=== PATIENT | female | born 1970 | race Caucasian/White ===

== ENCOUNTER 2017-09-04 19:58 | Emergency (ER) | END 2017-09-05 02:00 | disposition home or self-care (01) ==

== ENCOUNTER 2017-09-05 12:09 | Day surgery (SDC) | END 2017-09-05 18:06 | disposition home or self-care (01) ==

== ENCOUNTER 2017-10-11 13:36 | Day surgery (SDC) | END 2017-10-11 19:30 | disposition home or self-care (01) ==

== ENCOUNTER 2018-01-07 13:41 | Emergency (ER) | END 2018-01-07 21:40 | disposition home or self-care (01) ==

== ENCOUNTER 2018-03-15 10:09 | Inpatient (IN) | payer BC ==
[~2018-03-15] VITALS: Ht 152.4 cm; Wt 70.0 kg
[~2018-03-15 10:09] MED LIST: ADAL40PE SQ; HYDR-3980 PO; LEVO750T8 PO; LISI10TA2 PO; MESA800T2 PO; ONDA8TAB14 PO; PANT40TA4 PO; PRED20TA PO; PRED5TAB PO
[2018-03-15 10:10] VITALS: Ht 152.4 cm; Wt 70.0 kg
--- NOTE | 2018-03-15 10:38 | ERD ---
ER Documentation Chief Complaint Chief Complaint CONSTIPATION TODAY. HX HEMORRHOIDS TODAY. ROS All systems reviewed and are negative except as per history of present illness. Medications Home Meds Active Scripts Hydrocodone/Acetaminophen ([place] 10-325 Tablet) 1 Each Tablet, 1 TAB PO Q6H PRN for PAIN, #20 TAB Prov:NUBIA ZIMMER. DO 01/07/18 Levofloxacin* (Levofloxacin*) 750 Mg Tablet, 750 MG PO DAILY, #7 TAB Prov:NUBIA ZIMMER A. DO 01/07/18 Prednisone* (Prednisone*) 20 Mg Tab, 60 MG PO DAILY for 5 Days, TAB Prov:MATTHEW ZIMMERS A. DO 01/07/18 Mesalamine* (Asacol HD) 800 Mg Tablet.dr, 1800 MG PO TID, #60 TAB Prov:PAMNUBIA PITT DO 01/07/18 Ondansetron (Ondansetron Odt) 8 Mg Tab.rapdis, 8 MG PO Q6H PRN for NAUSEA AND/OR VOMITING, #10 TAB Prov:MATTHEW ZIMMERS A. DO 01/07/18 Reported Medications Prednisone* (Prednisone*) 5 Mg Tab, PO DAILY, TAB PER PT ALTERNATE PREDNISONE FOR 14 DAYS 10/11/17 Adalimumab (Humira) 40 Mg/0.8 Ml Pen.ij.kit, 40 MG SQ TWO WEEKS 10/11/17 Lisinopril* (Lisinopril*) 10 Mg Tablet, 10 MG PO DAILY, #30 TAB 09/05/17 Pantoprazole* (Pantoprazole*) 40 Mg Tablet.dr, 40 MG PO AC BREAKFAST, TAB 09/05/17 Allergies Allergies: Coded Allergies: No Known Allergy (Unverified , 09/05/17) PMhx/Soc History of Surgery: Yes (HYSTERECTOMY, PERIANAL ABSESS SX) Anesthesia Reaction: No Hx Neurological Disorder: No Hx Respiratory Disorders: No Hx Cardiac Disorders: Yes (HTN ) Hx Psychiatric Problems: No Hx Miscellaneous Medical Probl: Yes (PERIANAL FISTUALS, COLITIS) Hx Alcohol Use: No Hx Substance Use: No Hx Tobacco Use: No Smoking Status: Never smoker Physical Exam Vitals Vital Signs Date Temp Pulse Resp B/P (MAP) Pulse Ox O2 O2 Flow FiO2 Time Delivery Rate 03/15/18 102.9 113 16 131/66 99 10:10 (87) Physical Exam Const: No acute distress Head: Atraumatic Eyes: Normal Conjunctiva ENT: Normal External Ears, Nose and Mouth. Neck: Full range of motion. No meningismus. Resp: Clear to auscultation bilaterally Cardio: Regular rate and rhythm, no murmurs Abd: Soft, non tender, non distended. Normal bowel sounds Skin: No petechiae or rashes Back: No midline or flank tenderness Ext: No cyanosis, or edema Neur: Awake and alert Psych: Normal Mood and Affect Departure Condition: Stable ANITRA PACHECO MD Mar 15, 2018 10:38
[2018-03-15] MEDS ORDERED: metroNIDAZOLE 500 MG/NS (PMX) 100 ML IVPB ONE (11:00)
[2018-03-15] MEDS ORDERED: LEVOFLOXACIN 750MG/D5W (PMX) 150 ML IVPB ONE (11:00)
[2018-03-15] MEDS ORDERED: SOD CHLORIDE 0.9% 1,000 ML IV ONE (11:00)
--- NOTE | 2018-03-15 11:16 | ERD ---
ER Documentation Chief Complaint Chief Complaint CONSTIPATION TODAY. HX HEMORRHOIDS TODAY. HPI 47-year-old woman with a history of ulcerative colitis and rectovaginal fistula presents with left lower quadrant abdominal pain discomfort times 2 days and fever times 1 day. She admits to having diarrhea today (not constipation) and b lood per rectum. She also complains of headache when attempting a bowel movement earlier. Patient denies chest pain or shortness of breath, no vomiting, no blurry vision, no slurred speech, no paresis in her upper or lower extremities. Patient states she feels weak all over. 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 Medications Home Meds Active Scripts Hydrocodone/Acetaminophen ([place] 10-325 Tablet) 1 Each Tablet, 1 TAB PO Q6H PRN for PAIN, #20 TAB Prov:NUBIA ZIMMER. DO 01/07/18 Levofloxacin* (Levofloxacin*) 750 Mg Tablet, 750 MG PO DAILY, #7 TAB Prov:NUBIA ZIMMER. DO 01/07/18 Prednisone* (Prednisone*) 20 Mg Tab, 60 MG PO DAILY for 5 Days, TAB Prov:NUBIA ZIMMER DO 01/07/18 Mesalamine* (Asacol HD) 800 Mg Tablet.dr, 1800 MG PO TID, #60 TAB Prov:NUBIA ZIMMER DO 01/07/18 Ondansetron (Ondansetron Odt) 8 Mg Tab.rapdis, 8 MG PO Q6H PRN for NAUSEA AND/OR VOMITING, #10 TAB Prov:NUBIA ZIMMER. DO 01/07/18 Reported Medications Prednisone* (Prednisone*) 5 Mg Tab, PO DAILY, TAB PER PT ALTERNATE PREDNISONE FOR 14 DAYS 10/11/17 Adalimumab (Humira) 40 Mg/0.8 Ml Pen.ij.kit, 40 MG SQ TWO WEEKS 10/11/17 Lisinopril* (Lisinopril*) 10 Mg Tablet, 10 MG PO DAILY, #30 TAB 09/05/17 Pantoprazole* (Pantoprazole*) 40 Mg Tablet.dr, 40 MG PO AC BREAKFAST, TAB 09/05/17 Allergies Allergies: Coded Allergies: No Known Allergy (Unverified , 09/05/17) PMhx/Soc Ulcerative colitis, hypertension, gastritis History of Surgery: Yes (HYSTERECTOMY, PERIANAL ABSESS SX) Anesthesia Reaction: No Hx Neurological Disorder: Yes (bells palsy (rt side of face)) Hx Respiratory Disorders: No Hx Cardiac Disorders: Yes (HTN ) Hx Psychiatric Problems: No Hx Miscellaneous Medical Probl: Yes (PERIANAL FISTUALS, COLITIS) Hx Alcohol Use: No Hx Substance Use: No Hx Tobacco Use: No Smoking Status: Never smoker FmHx Family History: No diabetes Physical Exam Vitals Vital Signs Date Temp Pulse Resp B/P (MAP) Pulse Ox O2 O2 Flow FiO2 Time Delivery Rate 03/15/18 101.4 11:33 03/15/18 102.9 113 16 131/66 99 10:10 (87) Physical Exam Const: No acute distress, moderate discomfort, febrile Head: Atraumatic Eyes: Normal Conjunctiva ENT: Normal External Ears, Nose and Mouth. Neck: Full range of motion. No meningismus. Resp: Clear to auscultation bilaterally Cardio: Tachycardic and regular, no murmurs Abd: Moderate tenderness over the left lower abdomen with voluntary guarding, no rigidity Skin: No petechiae or rashes Back: No midline or flank tenderness Ext: No cyanosis, or edema Neur: Awake and alert x3, paresis to the right side of the face consistent with her history, strength in the upper and lower extremities 5/5 bilaterally, speech normal, gait normal, pupils equal round reactive to light Psych: Normal Mood and Affect Result Diagram: 03/15/18 1100 03/15/18 1100 Results 24 hrs Laboratory Tests Test 03/15/18 11:00 03/15/18 11:04 White Blood Count 12.8 10^3/ul Red Blood Count 4.21 10^6/ul Hemoglobin 7.8 g/dl Hematocrit 28.2 % Mean Corpuscular Volume 67.0 fl Mean Corpuscular Hemoglobin 18.5 pg Mean Corpuscular Hemoglobin Concent 27.7 g/dl Red Cell Distribution Width 19.4 % Platelet Count 631 10^3/UL Mean Platelet Volume 7.9 fl Immature Granulocytes % 0.700 % Neutrophils % 79.9 % Lymphocytes % 10.0 % Monocytes % 8.9 % Eosinophils % 0.2 % Basophils % 0.3 % Nucleated Red Blood Cells % 0.3 /100WBC Immature Granulocytes # 0.090 10^3/ul Neutrophils # 10.2 10^3/ul Lymphocytes # 1.3 10^3/ul Monocytes # 1.1 10^3/ul Eosinophils # 0.0 10^3/ul Basophils # 0.0 10^3/ul Nucleated Red Blood Cells # 0.0 10^3/ul Prothrombin Time 14.1 Sec Prothrombin Time Ratio 1.1 INR International Normalized Ratio 1.08 Activated Partial Thromboplast Time 31.8 Sec Sodium Level 133 mmol/L Potassium Level 3.7 mmol/L Chloride Level 95 mmol/L Carbon Dioxide Level 27 mmol/L Anion Gap 11 Blood Urea Nitrogen 6 mg/dl Creatinine 0.76 mg/dl Est Glomerular Filtrat Rate mL/min > 60 mL/min Glucose Level 106 mg/dl Calcium Level 8.7 mg/dl Total Bilirubin 0.2 mg/dl Direct Bilirubin 0.00 mg/dl Indirect Bilirubin 0.2 mg/dl Aspartate Amino Transf (AST/SGOT) 16 IU/L Alanine Aminotransferase (ALT/SGPT) 12 IU/L Alkaline Phosphatase 96 IU/L Troponin I < 0.012 ng/ml Total Protein 7.7 g/dl Albumin 3.6 g/dl Globulin 4.10 g/dl Albumin/Globulin Ratio 0.87 Lipase 43 U/L POC Venous Lactate 1.3 mmol/L Current Medications Medications Dose Sig/Topher Start Time Status Last (Trade) Ordered Route PRN Stop Time Admin Dose Reason Admin Sodium 1,000 ml @ Q20M ONCE 03/15/18 DC 03/15/18 Chloride 3,000 mls/hr IV 11:00 11:35 03/15/18 11:19 150 ml @ ONCE ONCE 03/15/18 DC Levofloxacin/ 100 mls/hr IVPB 11:00 Dextrose 03/15/18 12:29 100 ml @ ONCE ONCE 03/15/18 DC 03/15/18 Metronidazole 100 mls/hr IVPB 11:00 11:34 03/15/18 11:59 Ibuprofen 600 mg ONCE ONCE 03/15/18 DC 03/15/18 (Motrin) PO 11:30 11:33 03/15/18 11:31 Procedures/MDM IV line was established patient was placed on telemetry monitor rhythm strip revealed a sinus tachycardia at 120 bpm with upright P and T waves. Patient was febrile. Blood and urine cultures have been ordered results are pending I will follow-up. I administered 3 L normal saline IV, ibuprofen 600 mg p.o. for fever, levofl oxacin 750 mg IV x1, Flagyl 500 mg IV x1 Chest X-ray 1V Interpreted by me: Soft Tissue: No acute abnormalities Bones: No acute abnormalities Mediastinum/Cardiac Silhouette/Lungs: No acute abnormalities CT scan of the head was performed that was negative for acute bleed mass or shift CT scan of the abdomen and pelvis was performed, IMPRESSION: 1. DIFFUSE THICKENING OF THE [place] OF THE SIGMOID COLON AND DISTAL LEFT COLON WITH ADJACENT FATTY STRANDING AND INFLAMMATION AND MULTIPLE ADJACENT AND PERIRECTAL SUB CENTIMETER LYMPH NODES, CONSISTENT WITH COLITIS. NO EVIDENCE OF PERFORATION OR FOCAL FLUID COLLECTIONS AT THIS TIME. FINDINGS ARE WORSENED SINCE PRIOR STUDY. 2. There is a focal 3.0 cm density within the left pelvic wall, probably ovarian cystic remnant. This is unchanged since prior exam. Status post hysterectomy. 3. No evidence of bowel obstruction. Stool filled loops of large bowel suggestive of constipation. The appendix is within normal limits. 4. Cholelithiasis without gross CT evidence of inflammatory changes at this time. 5. Unchanged perianal metallic density. Correlate with clinical history. EKG performed, read by me revealed a sinus tachycardia at 111 bpm, normal axis, narrow QRS complex, no concerning ST elevations or depressions noted CBC reveals a leukocytosis of 13 and anemia with a hemoglobin of 7.8, electrolytes revealed mild hyponatremia, liver function tests normal, troponin negative, lactic acid level was low, urinalysis has been ordered results are pending I will follow-up. Patient's infectious symptoms have not stabilized and the patient is at risk of rapid decompensation. The patient will be admitted for careful hydration, antibiotic therapy, and infectious source control. SEVERE SEPSIS CRITERIA: Infectious source: Infectious colitis SEPSIS MANAGEMENT Time of recognition of sepsis: Upon arrival. Time of recognition of severe sepsis: No severe sepsis at this time. Time of recognition of septic shock: No septic shock at this time. 3 HOUR BUNDLE Blood cultures x 2 before broad-spectrum antibiotics: Yes 30 ml/kg NS bolus completed Initial lactate less than 2 Repeat lactate pending SEPTIC SHOCK ASSESSMENT: No lactic acid > 4.0 No persistent hypotension (SBP < 90 or 40 mmHg drop, MAP < 65) despite 30 mL/kg IV fluid bolus VOLUME REASSESSMENT FOR SEPTIC SHOCK: Reevaluation Time: 12 PM Temp 99.9 F, pulse 90 bpm, respiratory rate 16 breaths/min, BP 140/80, oxygen saturation 100% Heart regular rate & rhythm Lungs no crackles Skin warm & dry Cap Refill less than 2 seconds Peripheral pulses radially present PERSISTENT HYPOTENSION TREATMENT: Comfort care no Central line not Required Vasopressor started not required I considered further perfusion assessment with CVP measurement, SCVO2, bedside ultrasound volume assessment, passive leg raise, trial of further fluid bolus. And proceeded with 30 ml/kg fluid bolus of NSS, broad spectrum antibiotics, and admission. CRITICAL CARE: Critical care time 35 minutes, this was time separate from other billable procedures. Emergent fluid management while maintaining close respiratory support. Provision of immediate and broad-spectrum antibiotic therapy. Simultaneous assessment for possible sources in order to direct targeted therapy. Consideration for invasive and chemical support to prevent cardiopulmonary collapse. Critical care time is independent of procedures performed. Accepting Care Team: Current data and ongoing care discussed. Time: Time of admission Primary Provider: Hospitalist Consulting: GI Outstanding Data: none Departure Diagnosis: Primary Impression: Sepsis Sepsis type: sepsis due to unspecified organism Qualified Codes: A41.9 - Sepsis, unspecified organism Additional Impressions: Infectious colitis Anemia Anemia type: unspecified type Qualified Codes: D64.9 - Anemia, unspecified Condition: KONSTANTIN Bird MD Mar 15, 2018 11:15
[2018-03-15] MEDS ORDERED: IBUPROFEN 600 MG TAB PO ONE (11:30)
[2018-03-15] MEDS ORDERED: morphine 2 MG INJ IV PRN (13:30)
[2018-03-15] MEDS ORDERED: NACL 0.9% 3 ML SYG IV SCH (13:30)
[2018-03-15] MEDS ORDERED: HYDROCODONE/APAP (5/325) TAB PO PRN (13:30)
[2018-03-15] MEDS ORDERED: ACETAMINOPHEN 325 MG TAB PO PRN (13:30)
[2018-03-15] MEDS ORDERED: PANTOPRAZOLE 40 MG INJ IV ONE (13:30)
[2018-03-15] MEDS ORDERED: ONDANSETRON 4 MG INJ IV PRN (13:30)
[2018-03-15] MEDS ORDERED: ACETAMINOPHEN 1000MG/100ML IV 100 ML IVPB PRN (13:30)
--- NOTE | 2018-03-15 13:50 | HP ---
Date/Time of Note Date/Time of Note DATE: 03/15/18 TIME: 13:49 Assessment/Plan VTE Prophylaxis Pharmacological prophylaxis: other Lines/Catheters IV Catheter Type (from Nrs): Saline Lock Assessment/Plan Hospital Course Objective Physical exam General: Patient is laying in bed and answers questions appropriately Mentation: Patient is alert and oriented 4, Head: Normocephalic atraumatic Eyes: EOMI, pupils reactive to light Neck: Supple, nontender, midline Respiratory: Clear to auscultation bilaterally Cardiovascular: regular rate, no obvious murmurs Gastrointestinal: Left lower quadrant tenderness to palpation, bowel sounds heard. Neurological: Moves all extremities spontaneously Skin: No new skin lesions Assessment and plan Sepsis secondary to colitis -IV antibiotics due to stranding on CT -IV fluids -Lactic acid -Blood cultures Colitis, ulcerative colitis -Management per GI -GI consulted -?Steroids -Patient on Humira at home Fever -IV or rectal Tylenol Anemia, blood loss -Due to persistent bleeding from her ulcerative colitis -Patient states that the amount of blood loss is stable and unchanged -Transfuse as needed Hypertension -Home meds when able Disposition -GI consultation pending, Result Diagram: 03/15/18 1100 03/15/18 1100 Results 24hrs Laboratory Tests Test 03/15/18 11:00 03/15/18 11:04 03/15/18 12:33 03/15/18 12:59 White Blood Count 12.8 #H Red Blood Count 4.21 Hemoglobin 7.8 #L Hematocrit 28.2 L Mean Corpuscular 67.0 L Volume Mean Corpuscular 18.5 #L Hemoglobin Mean Corpuscular 27.7 L Hemoglobin Concent Red Cell 19.4 #H Distribution Width Platelet Count 631 H Mean Platelet Volume 7.9 Immature 0.700 H Granulocytes % Neutrophils % 79.9 H Lymphocytes % 10.0 L Monocytes % 8.9 Eosinophils % 0.2 Basophils % 0.3 Nucleated Red Blood 0.3 H Cells % Immature 0.090 H Granulocytes # Neutrophils # 10.2 H Lymphocytes # 1.3 Monocytes # 1.1 H Eosinophils # 0.0 Basophils # 0.0 Nucleated Red Blood 0.0 Cells # Prothrombin Time 14.1 Prothrombin Time 1.1 Ratio INR International 1.08 Normalized Ratio Activated 31.8 Partial Thromboplast Time Sodium Level 133 L Potassium Level 3.7 Chloride Level 95 L Carbon Dioxide Level 27 Anion Gap 11 Blood Urea Nitrogen 6 L Creatinine 0.76 Est Glomerular > 60 Filtrat Rate mL/min Glucose Level 106 Calcium Level 8.7 Total Bilirubin 0.2 Direct Bilirubin 0.00 Indirect Bilirubin 0.2 Aspartate Amino 16 Transf (AST/SGOT) Alanine 12 L Aminotransferase (AL T/SGPT) Alkaline Phosphatase 96 Troponin I < 0.012 Total Protein 7.7 Albumin 3.6 Globulin 4.10 H Albumin/Globulin 0.87 Ratio Lipase 43 POC Venous Lactate 1.3 0.9 Urine Color STRAW Urine Clarity CLEAR Urine pH 8.0 Urine Specific 1.003 [place] Urine Ketones NEGATIVE Urine Nitrite NEGATIVE Urine Bilirubin NEGATIVE Urine Urobilinogen NEGATIVE Urine Leukocyte TRACE A Esterase Urine Microscopic 0 RBC Urine Microscopic 6 H WBC Urine Squamous FEW Epithelial Cells Urine Bacteria FEW A Urine Hemoglobin 1+ H Urine Glucose NEGATIVE Urine Total Protein NEGATIVE HPI/ROS Admit Date/Time Admit Date/Time Hx of Present Illness Patient is a female with a past medical history significant for ulcerative colitis who presents to [facility] for left lower quadrant pain. Patient states that she has persistent bloody bowel movements due to her ulcerative colitis and that is her baseline however in the past day she has had left lower quadrant pain associated with diarrhea which is new. Patient states that she takes all her medications compliant and follows up with her doctors regularly. Currently patient denies any chest pain, shortness of breath, headache, leg pain. Patient states that the right lower quadrant and upper quadrants of her abdomen only have minimal pain. PMH/Family/Social Past Medical History Coded Allergies: No Known Allergy (Unverified , 09/05/17) Social History Smoking Status: Never smoker Exam/Review of Systems Vital Signs Vitals Vital Signs Date Temp Pulse Resp B/P (MAP) Pulse Ox O2 O2 Flow FiO2 Time Delivery Rate 03/15/18 101.4 11:33 03/15/18 113 16 131/66 99 10:10 (87) KONSTANTIN ALDRICH Mar 15, 2018 13:50
--- NOTE | 2018-03-15 14:42 | CONS ---
Date/Time of Note Date/Time of Note DATE: 03/15/18 TIME: 14:15 Assessment/Plan Assessment/Plan Assessment/Plan Assessment: Ulcerative colitis vs Crohn's flare -managed with Humira 80 mg every other week Hematochezia -chronic Hemorrhoids/rectal pain Anal and rectovaginal fistula Alternating constipation and diarrhea/constipation on CT Syncopal episode GERD Cholelithiasis Anemia Hypertension Yoon's palsy Arthritis Plan: Start Solu-Medrol 60 mg daily MiraLAX daily Clear liquid diet Continue PPI Anusol suppositories twice daily ESR/CRP Patient seen in collaboration with Result Diagram: 03/15/18 1100 03/15/18 1100 Results 24hrs Laboratory Tests Test 03/15/18 11:00 03/15/18 11:04 03/15/18 12:33 03/15/18 12:59 White Blood Count 12.8 #H Red Blood Count 4.21 Hemoglobin 7.8 #L Hematocrit 28.2 L Mean Corpuscular 67.0 L Volume Mean Corpuscular 18.5 #L Hemoglobin Mean Corpuscular 27.7 L Hemoglobin Concent Red Cell 19.4 #H Distribution Width Platelet Count 631 H Mean Platelet Volume 7.9 Immature 0.700 H Granulocytes % Neutrophils % 79.9 H Lymphocytes % 10.0 L Monocytes % 8.9 Eosinophils % 0.2 Basophils % 0.3 Nucleated Red Blood 0.3 H Cells % Immature 0.090 H Granulocytes # Neutrophils # 10.2 H Lymphocytes # 1.3 Monocytes # 1.1 H Eosinophils # 0.0 Basophils # 0.0 Nucleated Red Blood 0.0 Cells # Prothrombin Time 14.1 Prothrombin Time 1.1 Ratio INR International 1.08 Normalized Ratio Activated 31.8 Partial Thromboplast Time Sodium Level 133 L Potassium Level 3.7 Chloride Level 95 L Carbon Dioxide Level 27 Anion Gap 11 Blood Urea Nitrogen 6 L Creatinine 0.76 Est Glomerular > 60 Filtrat Rate mL/min Glucose Level 106 Calcium Level 8.7 Total Bilirubin 0.2 Direct Bilirubin 0.00 Indirect Bilirubin 0.2 Aspartate Amino 16 Transf (AST/SGOT) Alanine 12 L Aminotransferase (AL T/SGPT) Alkaline Phosphatase 96 Troponin I < 0.012 Total Protein 7.7 Albumin 3.6 Globulin 4.10 H Albumin/Globulin 0.87 Ratio Lipase 43 POC Venous Lactate 1.3 0.9 Urine Color STRAW Urine Clarity CLEAR Urine pH 8.0 Urine Specific 1.003 [place] Urine Ketones NEGATIVE Urine Nitrite NEGATIVE Urine Bilirubin NEGATIVE Urine Urobilinogen NEGATIVE Urine Leukocyte TRACE A Esterase Urine Microscopic 0 RBC Urine Microscopic 6 H WBC Urine Squamous FEW Epithelial Cells Urine Bacteria FEW A Urine Hemoglobin 1+ H Urine Glucose NEGATIVE Urine Total Protein NEGATIVE CC: MONIKA OLIVER MD ; Consultation Date/Type/Reason Admit Date/Time Date of Consultation: Mar 15, 2018 Type of Consult GI Reason for Consultation Ulcerative colitis flare Hx of Present Illness This is a 47-year-old female with a history of ulcerative colitis who was admitted for syncopal episode. Patient states she had diarrhea for the past 3 days, as she was sitting on the toilet and bearing down she lost consciousness and hit her head. Patient states she has persistent rectal bleeding with history of hemorrhoids and alternating bowel movements between constipation and diarrhea. She is on Humira for ulcerative colitis and arthritis 80 mg every other week injection. Last colonoscopy was in August 2017, patient is unsure of the results. Patient states she has a follow-up appointment with GI on April 12. Patient has anal fistula and rectovaginal fistula that reportedly were treated with injection. Patient is complaining of nausea, rectal pain, tenesmus, hematochezia, diarrhea, fever and lower abdominal pain. Currently denies vomiting, hematemesis, constipation, pyrosis or chest pain. Past medical history includes arthritis, Yoon's palsy, anemia, hypertension, and GERD (patient is on pantoprazole daily). Abdominal CT shows thickening of sigmoid and left colon with fat stranding and constipation. The plan is to start the patient on Solu-Medrol 60 mg IV daily. MiraLAX for constipation. Pain management. Genitourinary: no complaints (See HPI) Past Medical History Ulcerative colitis, Yoon's palsy, arthritis, hypertension, GERD, anal fistulas Medications Current Medications Sodium Chloride 1,000 ml @ 100 mls/hr Q10H IV ; Start 03/15/18 at 13:12 IV Flush (NS 3 ml) 3 ml PER PROTOCOL IV ; Start 03/15/18 at 13:30 Ondansetron HCl (Zofran Inj) 4 mg Q6H PRN IV NAUSEA AND/OR VOMITING; Start 03/15/18 at 13:30 Acetaminophen (Tylenol Tab) 650 mg Q6H PRN PO PAIN LEVEL 1-3 OR FEVER; Start 03/15/18 at 13:30 Acetaminophen/ Hydrocodone Bitart ([place] (5/325)) 1 tab Q6H PRN PO PAIN LEVEL 4-6; Start 03/15/18 at 13:30 Morphine Sulfate (morphine) 2 mg Q4H PRN IV PAIN LEVEL 7-10; Start 03/15/18 at 13:30 Pantoprazole (Protonix Iv) 40 mg DAILY@06 IV ; Start 03/16/18 at 06:00 Piperacillin Sod/ Tazobactam Sod 100 ml @ 200 mls/hr Q6 IVPB ; Start 03/15/18 at 18:00 Acetaminophen 100 ml @ 400 mls/hr Q6H PRN IVPB pain or fever above 100.5F; Start 03/15/18 at 13:30; Stop 03/17/18 at 13:29 Allergies: Coded Allergies: No Known Allergy (Unverified , 03/15/18) Social History Alcohol Use: none Smoking Status: Never smoker Drug Use: none Exam/Review of Systems Vital Signs Vitals Vital Signs Date Temp Pulse Resp B/P (MAP) Pulse Ox O2 O2 Flow FiO2 Time Delivery Rate 03/15/18 93 19 105/61 100 Room Air 13:00 (76) 03/15/18 101.4 11:33 Exam PHYSICAL EXAMINATION: GENERAL: Well developed, well nourished, alert & oriented x 3, in no acute distress SKIN: No lesions, no stigmata chronic liver disease, no evidence of bleeding diathesis LYMPHATIC: No palpable lymphadenopathy. HEAD: Normocephalic, atraumatic, no tenderness. EYES: Pupils equal reactive to light and accommodation, full extraocular m ovements, sclera clear, non-icteric, no discharge. EARS/NOSE AND THROAT: Ears normal, nose normal, oropharynx normal, oral membranes well hydrated without lesions. NECK: Supple, no masses, thyroid normal, JVP within normal limits, carotids normal without bruits. CHEST: Inspection within normal limits. CARDIOVASCULAR: Heart: Regular rate and rhythm, no murmurs, gallops or rubs. Peripheral pulses present within normal limits, no cyanosis, clubbing or edemas. No pulsatile abdominal mass RESPIRATORY: Lungs clear to auscultation and percussion, no wheezing, no rubs GASTROINTESTINAL AND LIVER: Abdomen: Soft, lower abdominal tenderness, non- distended, no hernias, no masses, no organomegaly, no ascites, no guarding, no rebound tenderness, normoactive bowel sounds. Rectal: Deferred. GENITOURINARY: Female genitalia within normal limits. EXTREMITIES: No cyanosis, clubbing or edema. Medications Medications Current Medications Sodium Chloride 1,000 ml @ 100 mls/hr Q10H IV ; Start 03/15/18 at 13:12 IV Flush (NS 3 ml) 3 ml PER PROTOCOL IV ; Start 03/15/18 at 13:30 Ondansetron HCl (Zofran Inj) 4 mg Q6H PRN IV NAUSEA AND/OR VOMITING; Start 03/15/18 at 13:30 Acetaminophen (Tylenol Tab) 650 mg Q6H PRN PO PAIN LEVEL 1-3 OR FEVER; Start 03/15/18 at 13:30 Acetaminophen/ Hydrocodone Bitart ([place] (5/325)) 1 tab Q6H PRN PO PAIN LEVEL 4-6; Start 03/15/18 at 13:30 Morphine Sulfate (morphine) 2 mg Q4H PRN IV PAIN LEVEL 7-10; Start 03/15/18 at 13:30 Pantoprazole (Protonix Iv) 40 mg DAILY@06 IV ; Start 03/16/18 at 06:00 Piperacillin Sod/ Tazobactam Sod 100 ml @ 200 mls/hr Q6 IVPB ; Start 03/15/18 at 18:00 Acetaminophen 100 ml @ 400 mls/hr Q6H PRN IVPB pain or fever above 100.5F; Start 03/15/18 at 13:30; Stop 03/17/18 at 13:29 DONAVAN LINDQUIST NP Mar 15, 2018 14:25
[2018-03-15] MEDS: SOD CHLORIDE 0.9% 1,000 ML IV SCH (15:22)
[2018-03-15] MEDS: morphine 4 MG/ML VIAL IV PRN ×2 (15:39→20:35)
[2018-03-15 16:00] VITALS: BP 101/57; PULSE 95; RESP 18
[2018-03-15] MEDS: HARD FAT/PHENYLEPHRINE SUPP PR SCH ×2 (16:22→23:00)
[2018-03-15] MEDS: METHYLPREDNISOLONE 125 MG INJ IV SCH (16:22)
--- NOTE | 2018-03-15 16:45 | NUR ---
Pt. completely admitted except endorsed to Delia GALLARDO to follow up on weight and SCD application.
[2018-03-15] MEDS: PIPER-TAZO 3.375 GM IV (PMX) 100 ML IVPB SCH (18:21)
--- NOTE | 2018-03-15 18:30 | NUR ---
applied scd on and entered the weight as ordered.all needs met.no acute events.gave antibiotics as ordered.call light within reach.bed alarm on.she is resting comfortably in bed.
[2018-03-15 20:00] VITALS: BP 102/59; PULSE 95; RESP 18
[2018-03-16] MEDS: PIPER-TAZO 3.375 GM IV (PMX) 100 ML IVPB SCH ×4 (00:02→20:22)
[2018-03-16] MEDS: SOD CHLORIDE 0.9% 1,000 ML IV SCH ×3 (01:11→12:43)
[2018-03-16 02:00] VITALS: BP 105/63; PULSE 71; RESP 18
[2018-03-16] MEDS: PANTOPRAZOLE 40 MG INJ IV SCH (05:52)
--- NOTE | 2018-03-16 06:24 | NUR ---
Patient alert, oriented x4; slept good during the night; once asked for pain medication; once had BM with slight blood in; VS were stable, in the normal range, continues a/b therapy.
--- NOTE | 2018-03-16 06:57 | NUR ---
Got a call from lab about critical level of hemoglobin 6.7. Called Dr ALDRICH, but applications developer Dr BE and by control panel operator info Dr BE available for calls at 8 am. Will inform charge nurse about and will endorse day time RN to call Dr BE at 8 am today.
--- NOTE | 2018-03-16 07:05 | NUR ---
Called Dr MISHRA to inform him about Hb level 6.7. He will call KONSTANTIN Cui to make an order for Patient. Will endorse day time RN about.
[2018-03-16] MEDS: morphine 4 MG/ML VIAL IV PRN ×3 (08:14→22:20)
[2018-03-16] MEDS: METHYLPREDNISOLONE 125 MG INJ IV SCH (08:15)
[2018-03-16] MEDS: HARD FAT/PHENYLEPHRINE SUPP PR SCH (08:15)
[2018-03-16 08:42] VITALS: BP 117/65; PULSE 85; RESP 18
--- NOTE | 2018-03-16 08:58 | NUR ---
Page Dr. Strange to report critical Lab will wait for call back
[2018-03-16] MEDS ORDERED: POLYETHYLENE GLYCOL 17 GM PACKET PO SCH (09:00)
--- NOTE | 2018-03-16 10:06 | NUR ---
Informed Dr. Arenas patient hgb is 6.7 per MD he will put order.
[2018-03-16] MEDS ORDERED: SOD CHLORIDE 0.9% 250 ML IV* ONE (10:31)
--- NOTE | 2018-03-16 12:06 | PN ---
Date/Time of Note Date/Time of Note DATE: 03/16/18 TIME: 12:03 Objective Vitals Vital Signs Date Temp Pulse Resp B/P (MAP) Pulse Ox O2 O2 Flow FiO2 Time Delivery Rate 03/16/18 98.2 85 18 117/65 99 Room Air 08:42 (82) Intake and Output 03/15/18 03/15/18 03/16/18 1515:00 23:00 07:00 IntakeIntake Total 1140 ml 1550 ml OutputOutput Total 100 ml 300 ml BalanceBalance 1040 ml 1250 ml Results Result Diagram: 03/16/1851203/16/18511 Medications Medications Current Medications Sodium Chloride 1,000 ml @ 100 mls/hr Q10H IV Last administered on 03/16/18at 01:11; Admin Dose 100 MLS/HR; Start 03/15/18 at 13:12 IV Flush (NS 3 ml) 3 ml PER PROTOCOL IV ; Start 03/15/18 at 13:30 Ondansetron HCl (Zofran Inj) 4 mg Q6H PRN IV NAUSEA AND/OR VOMITING; Start 03/15/18 at 13:30 Acetaminophen (Tylenol Tab) 650 mg Q6H PRN PO PAIN LEVEL 1-3 OR FEVER; Start 03/15/18 at 13:30 Acetaminophen/ Hydrocodone Bitart ([place] (5/325)) 1 tab Q6H PRN PO PAIN LEVEL 4-6 Last administered on 03/16/18at 09:45; Admin Dose 1 TAB; Start 03/15/18 at 13:30 Pantoprazole (Protonix Iv) 40 mg DAILY@06 IV Last administered on 03/16/18at 05:52; Admin Dose 40 MG; Start 03/16/18 at 06:00 Piperacillin Sod/ Tazobactam Sod 100 ml @ 200 mls/hr Q6 IVPB Last administered on 03/16/18at 05:52; Admin Dose 200 MLS/HR; Start 03/15/18 at 18:00 Acetaminophen 100 ml @ 400 mls/hr Q6H PRN IVPB pain or fever above 100.5F; Start 03/15/18 at 13:30; Stop 03/17/18 at 13:29 Methylprednisolone Sodium Succinate (Solu-Medrol) 60 mg DAILY IV Last adminis tered on 03/16/18at 08:15; Admin Dose 60 MG; Start 03/15/18 at 15:00 Hard Fat/ Phenylephrine (Anusol Supp) 1 supp BID NM Last administered on 03/16/18at 08:15; Admin Dose 1 SUPP; Start 03/15/18 at 16:00 Polyethylene Glycol (Miralax) 17 gm DAILY PO ; Start 03/16/18 at 09:00 Morphine Sulfate (morphine) 2 mg Q4H PRN IV PAIN LEVEL 7-10 Last administered on 03/16/18at 08:14; Admin Dose 2 MG; Start 03/15/18 at 16:00 VTE Prophylaxis Risk score (from Ns)>0 risk: 1 SCD applied (from [facility] [place]): Yes Lines/Catheters IV Catheter Type: Purcell in Place: No Assessment/Plan Hospital Course subjective pain has improved Objective Physical exam General: Patient is laying in bed and answers questions appropriately Mentation: Patient is alert and oriented 4, Head: Normocephalic atraumatic Eyes: EOMI, pupils reactive to light Neck: Supple, nontender, midline Respiratory: Clear to auscultation bilaterally Cardiovascular: regular rate, no obvious murmurs Gastrointestinal: Left lower quadrant tenderness to palpation, bowel sounds heard. Neurological: Moves all extremities spontaneously Skin: No new skin lesions Assessment and plan Sepsis secondary to colitis -IV antibiotics due to stranding on CT, may be purely due to UC/crohn's, but will continue as a precaution due to initially presenting symptoms of fever as well as white count. -IV fluids -Lactic acid -Blood cultures Colitis, ulcerative colitis -Management per GI -GI consulted -cont steroids -Patient on Humira at home Fever -tylenol as needed Anemia, blood loss -Due to persistent bleeding from her ulcerative colitis -Patient states that the amount of blood loss is stable and unchanged -Transfuse as needed Hypertension -Home meds when able Disposition -GI recs appreciated, pending transfusion KONSTANTIN ALDRICH Mar 16, 2018 12:06
--- NOTE | 2018-03-16 12:58 | PN ---
Date/Time of Note Date/Time of Note DATE: 03/16/18 TIME: 12:34 Assessment/Plan VTE Prophylaxis Risk score (from Nsg)>0 risk: 1 SCD applied (from Nsg): Yes Pharmacological prophylaxis: other (scds) Lines/Catheters IV Catheter Type (from Nrsg): Urinary Cath still in place: No Assessment/Plan Hospital Course Assessment: Ulcerative colitis vs Crohn's flare -managed with Humira 80 mg every other week Hematochezia -chronic Hemorrhoids/rectal pain Anal and rectovaginal fistula Alternating constipation and diarrhea/constipation on CT Syncopal episode GERD Cholelithiasis Anemia Hypertension Yoon's palsy Arthritis Plan: Stool studies are pending Solu-Medrol 60 mg daily Clear liquid diet- if continues to improve- advance diet in am Continue PPI ESR/CRP- elevated as expected Monitor H/h, transfuse as needed- 2 unit PRBC's ordered Patient seen in collaboration with Subjective/Free Text: Course reviewed with nursing staff Patient interviewed and examined All labs, imaging and other results reviewed The patient states she is feeling better than yesterday She states she had had 5 bm thus far today. No c/o abd pain or discomfort currently- HGB has dropped plan for transfusion today PHYSICAL EXAMINATION: GENERAL: Well developed, well nourished, alert & oriented x 3, in no acute distress SKIN: No lesions. EYES: Pupils equal reactive to light, no discharge. EARS/NOSE AND THROAT: Ears normal, nose normal, oropharynx normal NECK: Supple, no masses CHEST: Inspection within normal limits. CARDIOVASCULAR: Heart: Regular rate and rhythm, RESPIRATORY: Lungs clear to auscultation GASTROINTESTINAL AND LIVER: Abdomen: Soft, lower abdominal tenderness, non- distended, no rebound tenderness, normoactive bowel sounds. Rectal: Deferred. EXTREMITIES: No cyanosis, clubbing or edema. Result Diagram: 03/16/18 0513 03/16/18 0512 Results 24hrs Laboratory Tests Test 03/15/18 12:59 03/15/18 16:08 03/16/18 05:12 03/16/18 05:13 POC Venous Lactate 0.9 Lactic Acid Level 1.0 Sodium Level 138 Potassium Level 3.8 Chloride Level 105 # Carbon Dioxide Level 24 Anion Gap 9 Blood Urea Nitrogen 10 Creatinine 0.54 Est Glomerular > 60 Filtrat Rate mL/min Glucose Level 141 Hemoglobin A1c 6.0 H Calcium Level 8.3 L Magnesium Level 2.1 Total Bilirubin 0.1 L Direct Bilirubin 0.00 Indirect Bilirubin 0.1 Aspartate Amino 15 Transf (AST/SGOT) Alanine 16 Aminotransferase (AL T/SGPT) Alkaline Phosphatase 78 C-Reactive Protein > 9.0 H Total Protein 6.5 # Albumin 2.9 L Globulin 3.60 H Albumin/Globulin 0.80 Ratio White Blood Count 6.5 # Red Blood Count 3.56 L Hemoglobin 6.7 *L Hematocrit 24.5 L Mean Corpuscular 68.8 L Volume Mean Corpuscular 18.8 L Hemoglobin Mean Corpuscular 27.3 L Hemoglobin Concent Red Cell 19.1 H Distribution Width Platelet Count 536 H Mean Platelet Volume 8.1 Immature 0.500 H Granulocytes % Neutrophils % 82.4 H Segmented 28 L Neutrophils % (Manual) Band Neutrophils % 54 H (Manual) Lymphocytes % 11.0 L Lymphocytes % 13 L (Manual) Monocytes % 5.9 Monocytes % (Manual) 5 Eosinophils % 0.0 Basophils % 0.2 Nucleated Red Blood 0.0 Cells % Immature 0.030 Granulocytes # Neutrophils # 5.3 Neutrophils # 2.0 (Manual) Band Neutrophils # 3.5 H Lymphocytes (Manual) 0.8 Lymphocytes # 0.7 L Monocytes # 0.4 Monocytes # (Manual) 0.3 Eosinophils # 0.0 Basophils # 0.0 Nucleated Red Blood 0.0 Cells # Platelet Estimate INCREASED Polychromasia 3+ Hypochromasia 2+ Poikilocytosis 1+ Anisocytosis 2+ Microcytosis 2+ Erythrocyte 53 H Sedimentation Rate Exam/Review of Systems Vital Signs Vitals Vital Signs Date Temp Pulse Resp B/P (MAP) Pulse Ox O2 O2 Flow FiO2 Time Delivery Rate 03/16/18 98.2 85 18 117/65 99 Room Air 08:42 (82) Intake and Output 03/15/18 03/15/18 03/16/18 1515:00 23:00 07:00 IntakeIntake Total 1140 ml 1550 ml OutputOutput Total 100 ml 300 ml BalanceBalance 1040 ml 1250 ml Medications Medications Current Medications Sodium Chloride 1,000 ml @ 40 mls/hr Q24H IV Last administered on 03/16/18at 01:11; Admin Dose 100 MLS/HR; Start 03/15/18 at 13:12 IV Flush (NS 3 ml) 3 ml PER PROTOCOL IV ; Start 03/15/18 at 13:30 Ondansetron HCl (Zofran Inj) 4 mg Q6H PRN IV NAUSEA AND/OR VOMITING; Start 03/15/18 at 13:30 Acetaminophen (Tylenol Tab) 650 mg Q6H PRN PO PAIN LEVEL 1-3 OR FEVER; Start 03/15/18 at 13:30 Acetaminophen/ Hydrocodone Bitart ([place] (5/325)) 1 tab Q6H PRN PO PAIN LEVEL 4-6 Last administered on 03/16/18 09:45; Admin Dose 1 TAB; Start 03/15/18 at 13:30 Pantoprazole (Protonix Iv) 40 mg DAILY@06 IV Last administered on 03/16/18 05:52; Admin Dose 40 MG; Start 03/16/18 at 06:00 Piperacillin Sod/ Tazobactam Sod 100 ml @ 200 mls/hr Q6 IVPB Last administered on 03/16/18 05:52; Admin Dose 200 MLS/HR; Start 03/15/18 at 18:00 Acetaminophen 100 ml @ 400 mls/hr Q6H PRN IVPB pain or fever above 100.5F; Start 03/15/18 at 13:30; Stop 03/17/18 at 13:29 Methylprednisolone Sodium Succinate (Solu-Medrol) 60 mg DAILY IV Last ad ministered on 03/16/18at 08:15; Admin Dose 60 MG; Start 03/15/18 at 15:00 Hard Fat/ Phenylephrine (Anusol Supp) 1 supp BID [place] Last administered on 03/16/18at 08:15; Admin Dose 1 SUPP; Start 03/15/18 at 16:00 Polyethylene Glycol (Miralax) 17 gm DAILY PO ; Start 03/16/18 at 09:00 Morphine Sulfate (morphine) 2 mg Q4H PRN IV PAIN LEVEL 7-10 Last administered on 03/16/18 08:14; Admin Dose 2 MG; Start 03/15/18 at 16:00 KERON WILKINSON Mar 16, 2018 12:54
[2018-03-16] MEDS ORDERED: HARD FAT/PHENYLEPHRINE SUPP PR PRN (13:00)
[2018-03-16] MEDS ORDERED: POLYETHYLENE GLYCOL 17 GM PACKET PO PRN (13:00)
[2018-03-16 14:00] VITALS: BP 125/66; PULSE 81; RESP 17
[2018-03-16 19:36] VITALS: BP 118/80; PULSE 84; RESP 20
[2018-03-17] MEDS: PIPER-TAZO 3.375 GM IV (PMX) 100 ML IVPB SCH ×4 (01:22→18:06)
[2018-03-17 02:13] VITALS: BP 105/64; PULSE 69; RESP 18
--- NOTE | 2018-03-17 03:31 | NUR ---
5 1914 Pt received aaox4, respirations regular and even, responsive to verbal stimuli, no s/s of distress noted. Pt oriented to oncoming nurse and [facility] safety protocols including hourly rounding and an active bed alarm. Pt verbalized understanding & denies further needs at this time. 2029 Pt resting comfortably in bed, (1800 scheduled) Zosyn endorsed to computer software engineer by previous shift nurse due to blood transfusion running at that time. Zosyn hung @ 2029 okay as per pharmacist Star. 2100 Pt denies needs at this time. Non skin socks applied to prevent falls, bed alarm active and functioning. 2144 Vital signs stable; packed cells checked by myself and 2nd RN Janae to ensure pt safety. 2nd check complete. 2199 Packed cells hung. Pt educated on adverse effects and symptoms which may occur and will warrant a need to stop the blood transfusion including chills,back pain, & difficulty breathing. Pt verbalized understanding. 2214 Pt vitals stable, no s/s of distress or adverse reaction. Pt states, "I feel good, no side effects." 2230 Pt vitals stable, no s/s of distress or adverse reaction. Nursing will continue to monitor. 0030 TRANSFUSION COMPLETE. 0130 Vital signs remain stable. Zosyn antibiotics hung -okay as per pharmacist Star due to delay b/c of blood transfusion. Pt tolieted, ambulatory x1 assist. Stool sample collected to rule out Cdiff due to DIARHEA X 4 on current shift, previous shift x4.. Isolation precautions initiated. 0300 Pt asleep, respirations regular and even, nursing will continue to monitor. Addendum: 03/17/18 at 0427 by CHINA LORENZANA RN 0405 Pt assisted to toliet. Generalized swelling to the face, hands, & feet noted. Dr. Hyde made aware, orders to administered 25mg Benedryl & 40mg Solu-medrol stat. Nursing administered, will continue to monitor. Addendum: 03/17/18 at 0601 by CHINA LORENZANA RN 0500 Scheduled Protonix administered IV push w/o difficulty. Generalized non pitting edema of the hands and face still present, but has not worsened. 0600 Pt sleeping, respirations regular and even. Nursing will continue to monitor and endorse to morning shift to ensure pt safety and continued quality of care.
[2018-03-17] MEDS ORDERED: DIPHENHYDRAMINE 50 MG INJ IV ONE (04:30)
[2018-03-17] MEDS ORDERED: METHYLPREDNISOLONE 40 MG INJ IV ONE (04:30)
[2018-03-17] MEDS: PANTOPRAZOLE 40 MG INJ IV SCH (05:19)
[2018-03-17 07:45] VITALS: BP 107/67; PULSE 71; RESP 17
[2018-03-17] MEDS: METHYLPREDNISOLONE 125 MG INJ IV SCH (08:11)
[2018-03-17] MEDS: morphine 4 MG/ML VIAL IV PRN (09:23)
--- NOTE | 2018-03-17 13:11 | NUR ---
patient is complaining the she feels bloated. Patient is passing gas. Page Dr. Gold and leave a message. Will wait for call back
--- NOTE | 2018-03-17 13:30 | NUR ---
Assist patient to walk in the unit with assist tolerated well. per patient she feels better. Will encourage to walk in the unit again
[2018-03-17 14:22] VITALS: BP 122/70; PULSE 72; RESP 20
--- NOTE | 2018-03-17 15:17 | PN ---
Date/Time of Note Date/Time of Note DATE: 03/17/18 TIME: 15:15 Assessment/Plan VTE Prophylaxis Risk score (from Ns)>0 risk: 1 SCD applied (from Nsg): Yes Pharmacological prophylaxis: other (scds) Lines/Catheters IV Catheter Type (from Nrsg): Peripheral IV Urinary Cath still in place: No Assessment/Plan Hospital Course Assessment: Ulcerative colitis vs Crohn's flare -managed with Humira 80 mg every other week Hematochezia -chronic Hemorrhoids/rectal pain Anal and rectovaginal fistula Alternating constipation and diarrhea/constipation on CT Syncopal episode GERD Cholelithiasis Anemia Hypertension Yoon's palsy Arthritis Plan: CDIFF- neg Will increase diet to Soft Continue solu-Medrol 60 mg daily- today plan to decrease in near future Continue PPI Monitor H/h, transfuse as needed- Patient seen in collaboration with Subjective/Free Text: Course reviewed with nursing staff Patient interviewed and examined All labs, imaging and other results reviewed She states she feels better today, she continues to have multiple loose stools today Less abdominal pain. She does c/o increased burping/excess gas. But all overall feels much better PHYSICAL EXAMINATION: GENERAL: Well developed, well nourished, alert & oriented x 3, in no acute distress SKIN: No lesions. EYES: Pupils equal reactive to light, no discharge. EARS/NOSE AND THROAT: Ears normal, nose normal, oropharynx normal NECK: Supple, no masses CHEST: Inspection within normal limits. CARDIOVASCULAR: Heart: Regular rate and rhythm, RESPIRATORY: Lungs clear to auscultation GASTROINTESTINAL AND LIVER: Abdomen: Soft, lower abdominal tenderness- improved, non-distended, no rebound tenderness, normoactive bowel sounds. Rectal: Deferred. EXTREMITIES: No cyanosis, clubbing or edema. Result Diagram: 03/17/18 0446 03/17/18 0446 Results 24hrs Laboratory Tests Test 03/17/18 04:46 White Blood Count 5.8 Red Blood Count 3.96 L Hemoglobin 8.5 #L Hematocrit 29.0 L Mean Corpuscular Volume 73.2 L Mean Corpuscular Hemoglobin 21.5 L Mean Corpuscular Hemoglobin Concent 29.3 L Red Cell Distribution Width 23.1 #H Platelet Count 473 H Mean Platelet Volume 8.2 Immature Granulocytes % 0.500 H Neutrophils % Segmented Neutrophils % (Manual) 28 L Band Neutrophils % (Manual) 37 H Lymphocytes % Lymphocytes % (Manual) 26 Monocytes % Monocytes % (Manual) 7 Eosinophils % Eosinophils % (Manual) 2 Basophils % Nucleated Red Blood Cells % 0.7 H Immature Granulocytes # 0.030 Neutrophils # Neutrophils # (Manual) 1.7 Band Neutrophils # 2.1 H Lymphocytes (Manual) 1.5 Lymphocytes # Monocytes # Monocytes # (Manual) 0.4 Eosinophils # Basophils # Nucleated Red Blood Cells # Platelet Estimate NORMAL Polychromasia 3+ Hypochromasia 2+ Poikilocytosis 1+ Anisocytosis 2+ Microcytosis 2+ Target Cells 1+ Sodium Level 135 Potassium Level 3.6 Chloride Level 103 Carbon Dioxide Level 25 Anion Gap 7 Blood Urea Nitrogen 8 Creatinine 0.59 Est Glomerular Filtrat Rate mL/min > 60 Glucose Level 91 # Calcium Level 8.1 L Phosphorus Level 3.2 Magnesium Level 2.1 Exam/Review of Systems Vital Signs Vitals Vital Signs Date Temp Pulse Resp B/P (MAP) Pulse Ox O2 O2 Flow FiO2 Time Delivery Rate 03/17/18 98.0 72 20 122/70 97 Room Air 14:22 (87) Intake and Output 03/16/18 03/16/18 03/17/18 1515:00 23:00 07:00 IntakeIntake Total 800 ml 250 ml BalanceBalance 800 ml 250 ml Medications Medications Current Medications Sodium Chloride 1,000 ml @ 40 mls/hr Q24H IV Last administered on 03/16/18at 12:43; Admin Dose 40 MLS/HR; Start 03/15/18 at 13:12 IV Flush (NS 3 ml) 3 ml PER PROTOCOL IV ; Start 03/15/18 at 13:30 Ondansetron HCl (Zofran Inj) 4 mg Q6H PRN IV NAUSEA AND/OR VOMITING; Start 03/15/18 at 13:30 Acetaminophen (Tylenol Tab) 650 mg Q6H PRN PO PAIN LEVEL 1-3 OR FEVER; Start 03/15/18 at 13:30 Acetaminophen/ Hydrocodone Bitart ([place] (5/325)) 1 tab Q6H PRN PO PAIN LEVEL 4-6 Last administered on 03/16/18at 09:45; Admin Dose 1 TAB; Start 03/15/18 at 13:30 Pantoprazole (Protonix Iv) 40 mg DAILY@06 IV Last administered on 03/17/18 05:19; Admin Dose 40 MG; Start 03/16/18 at 06:00 Piperacillin Sod/ Tazobactam Sod 100 ml @ 200 mls/hr Q6 IVPB Last administered on 03/17/18at 12:38; Admin Dose 200 MLS/HR; Start 03/15/18 at 18:00 Methylprednisolone Sodium Succinate (Solu-Medrol) 60 mg DAILY IV Last administered on 03/17/18 08:11; Admin Dose 60 MG; Start 03/15/18 at 15:00 Morphine Sulfate (morphine) 2 mg Q4H PRN IV PAIN LEVEL 7-10 Last administered on 03/17/18 09:23; Admin Dose 2 MG; Start 03/15/18 at 16:00 Polyethylene Glycol (Miralax) 17 gm DAILY PRN PO constipation; Start 03/16/18 at 13:00 Hard Fat/ Phenylephrine (Anusol Supp) 1 supp BID PRN [place] rectal pain/itching; Start 03/16/18 at 13:00 KERON WILKINSON Mar 17, 2018 15:17
--- NOTE | 2018-03-17 16:21 | PN ---
Date/Time of Note Date/Time of Note DATE: 03/17/18 TIME: 16:19 Assessment/Plan VTE Prophylaxis Risk score (from Nsg)>0 risk: 1 SCD applied (from Nsg): Yes Pharmacological prophylaxis: heparin Lines/Catheters IV Catheter Type (from Nrsg): Peripheral IV Urinary Cath still in place: No Assessment/Plan Hospital Course 47 yo female with IBD flare - steroids per GI - pain control - advanced diet - continue zoysn course given sepsis on arrival Result Diagram: 03/17/18 0446 03/17/18 0446 Results 24hrs Laboratory Tests Test 03/17/18 04:46 White Blood Count 5.8 Red Blood Count 3.96 L Hemoglobin 8.5 #L Hematocrit 29.0 L Mean Corpuscular Volume 73.2 L Mean Corpuscular Hemoglobin 21.5 L Mean Corpuscular Hemoglobin Concent 29.3 L Red Cell Distribution Width 23.1 #H Platelet Count 473 H Mean Platelet Volume 8.2 Immature Granulocytes % 0.500 H Neutrophils % Segmented Neutrophils % (Manual) 28 L Band Neutrophils % (Manual) 37 H Lymphocytes % Lymphocytes % (Manual) 26 Monocytes % Monocytes % (Manual) 7 Eosinophils % Eosinophils % (Manual) 2 Basophils % Nucleated Red Blood Cells % 0.7 H Immature Granulocytes # 0.030 Neutrophils # Neutrophils # (Manual) 1.7 Band Neutrophils # 2.1 H Lymphocytes (Manual) 1.5 Lymphocytes # Monocytes # Monocytes # (Manual) 0.4 Eosinophils # Basophils # Nucleated Red Blood Cells # Platelet Estimate NORMAL Polychromasia 3+ Hypochromasia 2+ Poikilocytosis 1+ Anisocytosis 2+ Microcytosis 2+ Target Cells 1+ Sodium Level 135 Potassium Level 3.6 Chloride Level 103 Carbon Dioxide Level 25 Anion Gap 7 Blood Urea Nitrogen 8 Creatinine 0.59 Est Glomerular Filtrat Rate mL/min > 60 Glucose Level 91 # Calcium Level 8.1 L Phosphorus Level 3.2 Magnesium Level 2.1 Subjective 24 Hr Interval Summary Free Text/Dictation Symptoms improved she says No pain s/p moprhine Wants to eat Exam/Review of Systems Vital Signs Vitals Vital Signs Date Temp Pulse Resp B/P (MAP) Pulse Ox O2 O2 Flow FiO2 Time Delivery Rate 03/17/18 98.0 72 20 122/70 97 Room Air 14:22 (87) Intake and Output 03/16/18 03/16/18 03/17/18 1515:00 23:00 07:00 IntakeIntake Total 800 ml 250 ml BalanceBalance 800 ml 250 ml Exam Constitutional: alert, oriented, well developed Psych: no complaints, nl mood/affect Head: normocephalic, atraumatic Eyes: nl conjunctiva, EOMI, nl lids, nl sclera, PERRL ENMT: nl external ears & nose, nl lips & teeth, nl nasal mucosa & septum Neck: supple, non-tender Respiratory: clear to auscultation, normal air movement Cardiovascular: regular rate and rhythm, nl pulses Gastrointestinal: soft, nl liver, spleen, non-tender Musculoskeletal: nl extremities to inspection, nl gait and stance Extremities: normal pulses Neurological: BLEACH PLANT OPERATOR II-XII intact, nl mental status, nl speech, nl strength Skin: nl turgor; No rash or lesions Lymph: nl lymph nodes Medications Medications Current Medications Sodium Chloride 1,000 ml @ 40 mls/hr Q24H IV Last administered on 03/16/18at 12:43; Admin Dose 40 MLS/HR; Start 03/15/18 at 13:12 IV Flush (NS 3 ml) 3 ml PER PROTOCOL IV ; Start 03/15/18 at 13:30 Ondansetron HCl (Zofran Inj) 4 mg Q6H PRN IV NAUSEA AND/OR VOMITING; Start 03/15/18 at 13:30 Acetaminophen (Tylenol Tab) 650 mg Q6H PRN PO PAIN LEVEL 1-3 OR FEVER; Start 03/15/18 at 13:30 Acetaminophen/ Hydrocodone Bitart ([place] (5/325)) 1 tab Q6H PRN PO PAIN LEVEL 4-6 Last administered on 03/16/18at 09:45; Admin Dose 1 TAB; Start 03/15/18 at 13:30 Pantoprazole (Protonix Iv) 40 mg DAILY@06 IV Last administered on 03/17/18at 05:19; Admin Dose 40 MG; Start 03/16/18 at 06:00 Piperacillin Sod/ Tazobactam Sod 100 ml @ 200 mls/hr Q6 IVPB Last administered on 03/17/18at 12:38; Admin Dose 200 MLS/HR; Start 03/15/18 at 18:00 Methylprednisolone Sodium Succinate (Solu-Medrol) 60 mg DAILY IV Last administered on 03/17/18at 08:11; Admin Dose 60 MG; Start 03/15/18 at 15:00 Morphine Sulfate (morphine) 2 mg Q4H PRN IV PAIN LEVEL 7-10 Last administered on 03/17/18at 09:23; Admin Dose 2 MG; Start 03/15/18 at 16:00 Polyethylene Glycol (Miralax) 17 gm DAILY PRN PO constipation; Start 03/16/18 at 13:00 Hard Fat/ Phenylephrine (Anusol Supp) 1 supp BID PRN [place] rectal pain/itching; Start 03/16/18 at 13:00 ROSANNA MCCABE MD Mar 17, 2018 16:21
--- NOTE | 2018-03-17 17:50 | NUR ---
took over pennie zavala @[phone]
--- NOTE | 2018-03-17 18:10 | NUR ---
Patient is alert, awake and verbally responsive. Respiration are even and non labored. patient has episode of abdominal pain and feeling bloated but after ambulating the patient relief. No complain of discomfort at this time. Assisted the patient to take a shower. Will endorse accordingly.
[2018-03-17 19:27] VITALS: BP 116/72; PULSE 95; RESP 17
--- NOTE | 2018-03-17 21:01 | NUR ---
1914 Pt received aaox4, respirations regular and even, responsive to verbal stimuli, no s/s of distress noted. Pt oriented to oncoming nurse and [facility] safety protocols including hourly rounding and an active bed alarm. Pt verbalized understanding & denies further needs at this time. 2029 Pt resting comfortably in bed, no medications scheduled for administration. Pt denies needs at this time, pt has pleasant affect & states that she, "Feels very well." Non skin socks applied to prevent falls, bed alarm active and functioning. Addendum: 03/18/18 at 0131 by CHINA LORENZANA RN 2099 Pt resting comfortably in bed, eyes closed respirations regular and even. Nursing will continue to monitor. 0000 IV line patent in the left ac. Denny garvey, pt denies pain and further needs at this time. Addendum: 03/18/18 at 0610 by CHINA LORENZANA RN 0300 Pt asleep, respirations regular and even. Nursing will continue to monitor. 0600 Pt slept well throughout the night, all needs anticipated & met. Pt stable, resting in bed with eyes closed. Nursing will continue to monitor and endorse to morning shift to ensure pt safety and continuity of care.
[2018-03-18] MEDS: PIPER-TAZO 3.375 GM IV (PMX) 100 ML IVPB SCH ×5 (00:09→23:32)
[2018-03-18 01:53] VITALS: BP 102/63; PULSE 77; RESP 18
[2018-03-18] MEDS: PANTOPRAZOLE 40 MG INJ IV SCH (05:39)
[2018-03-18] MEDS: METHYLPREDNISOLONE 125 MG INJ IV SCH (08:11)
[2018-03-18 08:27] VITALS: BP 120/74; PULSE 72; RESP 17
--- NOTE | 2018-03-18 11:02 | PN ---
Date/Time of Note Date/Time of Note DATE: 03/18/18 TIME: 10:56 Assessment/Plan VTE Prophylaxis Risk score (from Nsg)>0 risk: 2 SCD applied (from Nsg): Yes Pharmacological prophylaxis: other (scds) Lines/Catheters IV Catheter Type (from Nrsg): Peripheral IV Urinary Cath still in place: No Assessment/Plan Hospital Course Assessment: Ulcerative colitis vs Crohn's flare -managed with Humira 80 mg every other week Hematochezia -chronic Hemorrhoids/rectal pain Anal and rectovaginal fistula Alternating constipation and diarrhea/constipation on CT Syncopal episode GERD Cholelithiasis Anemia Hypertension Yoon's palsy Arthritis Plan: Continue diet Decrease Solu-Medrol 40 mg daily- BM down to 6 per day- no c/o abd pain today- plan to change steroids to PO in near future, pending symptoms. Continue PPI Monitor H/h, transfuse as needed- Patient seen in collaboration with Subjective/Free Text: Course reviewed with nursing staff Patient interviewed and examined All labs, imaging and other results reviewed Patient states she feels much better after eating a soft diet BM down to 6 per day, no c/o n/v. Less bloody stools noted, will continue to monitor h/h and transfuse if required PHYSICAL EXAMINATION: GENERAL: Well developed, well nourished, alert & oriented x 3, in no acute distress SKIN: No lesions. EYES: Pupils equal reactive to light, no discharge. EARS/NOSE AND THROAT: Ears normal, nose normal, oropharynx normal NECK: Supple, no masses CHEST: Inspection within normal limits. CARDIOVASCULAR: Heart: Regular rate and rhythm, RESPIRATORY: Lungs clear to auscultation GASTROINTESTINAL AND LIVER: Abdomen: Soft, lower abdominal tenderness- improved, non-distended, no rebound tenderness, normoactive bowel sounds. Rectal: Deferred. EXTREMITIES: No cyanosis, clubbing or edema. Result Diagram: 03/17/1844503/17/18445 Exam/Review of Systems Vital Signs Vitals Vital Signs Date Temp Pulse Resp B/P (MAP) Pulse Ox O2 O2 Flow FiO2 Time Delivery Rate 03/18/18 98.2 72 17 120/74 97 Room Air 08:27 (89) Intake and Output 03/17/18 03/17/18 03/18/18 1515:00 23:00 07:00 IntakeIntake Total 1240 ml 1000 ml BalanceBalance 1240 ml 1000 ml Medications Medications Current Medications IV Flush (NS 3 ml) 3 ml PER PROTOCOL IV ; Start 03/15/18 at 13:30 Ondansetron HCl (Zofran Inj) 4 mg Q6H PRN IV NAUSEA AND/OR VOMITING; Start 03/15/18 at 13:30 Acetaminophen (Tylenol Tab) 650 mg Q6H PRN PO PAIN LEVEL 1-3 OR FEVER; Start 03/15/18 at 13:30 Acetaminophen/ Hydrocodone Bitart ([place] (5/325)) 1 tab Q6H PRN PO PAIN LEVEL 4-6 Last administered on 03/16/18 09:45; Admin Dose 1 TAB; Start 03/15/18 at 13:30 Pantoprazole (Protonix Iv) 40 mg DAILY@06 IV Last administered on 03/18/18 05:39; Admin Dose 40 MG; Start 03/16/18 at 06:00 Piperacillin Sod/ Tazobactam Sod 100 ml @ 200 mls/hr Q6 IVPB Last administered on 03/18/18 05:39; Admin Dose 200 MLS/HR; Start 03/15/18 at 18:00 Methylprednisolone Sodium Succinate (Solu-Medrol) 60 mg DAILY IV Last administered on 03/18/18 08:11; Admin Dose 60 MG; Start 03/15/18 at 15:00 Morphine Sulfate (morphine) 2 mg Q4H PRN IV PAIN LEVEL 7-10 Last administered on 03/17/18 09:23; Admin Dose 2 MG; Start 03/15/18 at 16:00 Polyethylene Glycol (Miralax) 17 gm DAILY PRN PO constipation; Start 03/16/18 at 13:00 Hard Fat/ Phenylephrine (Anusol Supp) 1 supp BID PRN [place] rectal pain/itching; Start 03/16/18 at 13:00 KERON WILKINSON Mar 18, 2018 11:02
--- NOTE | 2018-03-18 13:55 | PN ---
Date/Time of Note Date/Time of Note DATE: 03/18/18 TIME: 13:54 Assessment/Plan VTE Prophylaxis Risk score (from Nsg)>0 risk: 2 SCD applied (from Nsg): Yes Pharmacological prophylaxis: heparin Lines/Catheters IV Catheter Type (from Nrsg): Peripheral IV Urinary Cath still in place: No Assessment/Plan Hospital Course 47 yo female with IBD flare - steroids per GI - pain control - advanced diet - continue zoysn course given sepsis on arrival Result Diagram: 03/17/18 0446 03/17/186 Subjective 24 Hr Interval Summary Free Text/Dictation Tolerating PO Still having diarrhea, minimal abd pain Exam/Review of Systems Vital Signs Vitals Vital Signs Date Temp Pulse Resp B/P (MAP) Pulse Ox O2 O2 Flow FiO2 Time Delivery Rate 03/18/18 98.2 72 17 120/74 97 Room Air 08:27 (89) Intake and Output 03/17/18 03/17/18 03/18/18 1515:00 23:00 07:00 IntakeIntake Total 1240 ml 1000 ml BalanceBalance 1240 ml 1000 ml Exam Constitutional: alert, oriented, well developed Psych: no complaints, nl mood/affect Head: normocephalic, atraumatic Eyes: nl conjunctiva, EOMI, nl lids, nl sclera, PERRL ENMT: nl external ears & nose, nl lips & teeth, nl nasal mucosa & septum Neck: supple, non-tender Respiratory: clear to auscultation, normal air movement Cardiovascular: regular rate and rhythm, nl pulses Gastrointestinal: soft, nl liver, spleen, non-tender Musculoskeletal: nl extremities to inspection, nl gait and stance Extremities: normal pulses 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, nl mental status, nl speech, nl strength Skin: nl turgor; No rash or lesions Lymph: nl lymph nodes Medications Medications Current Medications IV Flush (NS 3 ml) 3 ml PER PROTOCOL IV ; Start 03/15/18 at 13:30 Ondansetron HCl (Zofran Inj) 4 mg Q6H PRN IV NAUSEA AND/OR VOMITING; Start 03/15/18 at 13:30 Acetaminophen (Tylenol Tab) 650 mg Q6H PRN PO PAIN LEVEL 1-3 OR FEVER; Start 03/15/18 at 13:30 Acetaminophen/ Hydrocodone Bitart ([place] (5/325)) 1 tab Q6H PRN PO PAIN LEVEL 4-6 Last administered on 03/16/18 09:45; Admin Dose 1 TAB; Start 03/15/18 at 13:30 Pantoprazole (Protonix Iv) 40 mg DAILY@06 IV Last administered on 03/18/18at 05:39; Admin Dose 40 MG; Start 03/16/18 at 06:00 Piperacillin Sod/ Tazobactam Sod 100 ml @ 200 mls/hr Q6 IVPB Last administered on 03/18/18at 11:43; Admin Dose 200 MLS/HR; Start 03/15/18 at 18:00 Morphine Sulfate (morphine) 2 mg Q4H PRN IV PAIN LEVEL 7-10 Last administered on 03/17/18at 09:23; Admin Dose 2 MG; Start 03/15/18 at 16:00 Polyethylene Glycol (Miralax) 17 gm DAILY PRN PO constipation; Start 03/16/18 at 13:00 Hard Fat/ Phenylephrine (Anusol Supp) 1 supp BID PRN [place] rectal pain/itching; Start 03/16/18 at 13:00 Methylprednisolone Sodium Succinate (Solu-Medrol) 40 mg DAILY IV ; Start 03/19/18 at 09:00 ROSANNA MCCABE MD Mar 18, 2018 13:55
[2018-03-18 15:29] VITALS: BP 111/64; PULSE 72; RESP 17
--- NOTE | 2018-03-18 15:41 | NUR ---
RN Notes: Patient remains alert and oriented, ambulatory with steady gait, afebrile, no acute distress noted, no sob noted, denies pain/discomfort. Still noted with loose BM went to the bathroom x4 with blood noted when checked her BM in the bathroom, no n/v noted. Fluid offered as tolerated, GI on the case and aware regarding pt's symptom. Antibiotic adm as ordered. Hourly rounding done, call light within reach, reeducated regarding safety measures. Will continue to monitor until the end of the shift. Addendum: 03/18/18 at 1807 by VARUN VALDES RN No significant events during this shift. Will endorse for continuity of care.
[2018-03-18 20:15] VITALS: BP 117/75; PULSE 70; RESP 18
[2018-03-19 02:06] VITALS: BP 113/82; PULSE 68; RESP 20
[2018-03-19] MEDS: PIPER-TAZO 3.375 GM IV (PMX) 100 ML IVPB SCH ×4 (06:25→23:57)
[2018-03-19] MEDS: PANTOPRAZOLE 40 MG INJ IV SCH (06:41)
[2018-03-19 08:00] VITALS: BP 127/78; PULSE 76; RESP 18
[2018-03-19] MEDS: METHYLPREDNISOLONE 40 MG INJ IV SCH (08:46)
--- NOTE | 2018-03-19 12:55 | PN ---
Date/Time of Note Date/Time of Note DATE: 03/19/18 TIME: 12:51 Assessment/Plan VTE Prophylaxis Risk score (from Ns)>0 risk: 1 SCD applied (from Nsg): Yes Pharmacological prophylaxis: other (scds) Lines/Catheters IV Catheter Type (from Nrsg): Saline Lock Urinary Cath still in place: No Assessment/Plan Hospital Course Assessment: Ulcerative colitis vs Crohn's flare -managed with Humira 80 mg every other week Abdominal pain- now resolved Hematochezia -greatly improved- hgb up today Hemorrhoids/rectal pain Anal and rectovaginal fistula Alternating constipation and diarrhea/constipation on CT Syncopal episode GERD Cholelithiasis Anemia Hypertension Yoon's palsy Arthritis Plan: Low residue/bland diet Solu-Medrol 40 mg daily- plan to change to PO when BM are closer to 3 per day Continue current regiment Patient seen in collaboration with Subjective/Free Text: Course reviewed with nursing staff Patient interviewed and examined All labs, imaging and other results reviewed Each day patient states she feels better- today she denies any abdominal pain. No c/o v/n. Less blood noted. She continues to have several BM- now described as more formed. Less watery. Continue current regimen, plan to change medication to PO when she is having less BM- Plan for D/c when able to tolerate Po steroid and diet PHYSICAL EXAMINATION: GENERAL: Well developed, well nourished, alert & oriented x 3, in no acute distress SKIN: No lesions. CHEST: Inspection within normal limits. CARDIOVASCULAR: Heart: Regular rate and rhythm, RESPIRATORY: Lungs clear to auscultation GASTROINTESTINAL AND LIVER: Abdomen: Soft, lower abdominal tenderness- resolved, non-distended, no rebound tenderness, normoactive bowel sounds. Rectal: Deferred. EXTREMITIES: No cyanosis, clubbing or edema. Result Diagram: 03/19/18 0655 03/19/18 0655 Results 24hrs Laboratory Tests Test 03/19/18 06:54 03/19/18 06:55 03/19/18 07:25 Iron Level 26 L Total Iron Binding Capacity 287 Percent Iron Saturation 9 L Ferritin 21.5 White Blood Count 6.8 Red Blood Count 4.65 Hemoglobin 9.9 L Hematocrit 33.6 L Mean Corpuscular Volume 72.3 L Mean Corpuscular Hemoglobin 21.3 L Mean Corpuscular 29.5 L Hemoglobin Concent Red Cell Distribution Width 23.7 H Platelet Count 575 #H Mean Platelet Volume 7.9 Immature Granulocytes % 1.000 H Neutrophils % 53.0 Lymphocytes % 36.4 Monocytes % 8.6 Eosinophils % 0.9 Basophils % 0.1 Nucleated Red Blood Cells % 0.4 H Immature Granulocytes # 0.070 H Neutrophils # 3.6 Lymphocytes # 2.5 Monocytes # 0.6 Eosinophils # 0.1 Basophils # 0.0 Nucleated Red Blood Cells # 0.0 Sodium Level 136 Potassium Level 3.4 L Chloride Level 100 Carbon Dioxide Level 28 Anion Gap 8 Blood Urea Nitrogen 6 L Creatinine 0.65 Est Glomerular Filtrat > 60 Rate mL/min Glucose Level 90 Calcium Level 8.4 Total Bilirubin 0.2 Direct Bilirubin 0.00 Indirect Bilirubin 0.2 Aspartate Amino 17 Transf (AST/SGOT) Alanine 18 Aminotransferase (ALT/SGPT) Alkaline Phosphatase 73 Total Protein 7.1 Albumin 3.2 L Globulin 3.90 H Albumin/Globulin Ratio 0.82 Lab Scanned Report BLOOD TRANSFUSION Exam/Review of Systems Vital Signs Vitals Vital Signs Date Temp Pulse Resp B/P (MAP) Pulse Ox O2 O2 Flow FiO2 Time Delivery Rate 03/19/18 98.6 76 18 127/78 96 08:00 (94) 03/19/18 Room Air 02:06 Intake and Output 03/18/18 03/18/18 03/19/18 1515:00 23:00 07:00 IntakeIntake Total 400 ml 100 ml 550 ml BalanceBalance 400 ml 100 ml 550 ml Medications Medications Current Medications IV Flush (NS 3 ml) 3 ml PER PROTOCOL IV ; Start 03/15/18 at 13:30 Ondansetron HCl (Zofran Inj) 4 mg Q6H PRN IV NAUSEA AND/OR VOMITING; Start at 13:30 Acetaminophen (Tylenol Tab) 650 mg Q6H PRN PO PAIN LEVEL 1-3 OR FEVER; Start 03/15/18 at 13:30 Acetaminophen/ Hydrocodone Bitart ([place] (5/325)) 1 tab Q6H PRN PO PAIN LEVEL 4-6 Last administered on 03/16/18at 09:45; Admin Dose 1 TAB; Start 03/15/18 at 13:30 Pantoprazole (Protonix Iv) 40 mg DAILY@06 IV Last administered on 03/19/18 06:41; Admin Dose 40 MG; Start 03/16/18 at 06:00 Piperacillin Sod/ Tazobactam Sod 100 ml @ 200 mls/hr Q6 IVPB Last administered on 03/19/18 12:08; Admin Dose 200 MLS/HR; Start 03/15/18 at 18:00 Morphine Sulfate (morphine) 2 mg Q4H PRN IV PAIN LEVEL 7-10 Last administered on 03/17/18 09:23; Admin Dose 2 MG; Start 03/15/18 at 16:00 Polyethylene Glycol (Miralax) 17 gm DAILY PRN PO constipation; Start 03/16/18 at 13:00 Hard Fat/ Phenylephrine (Anusol Supp) 1 supp BID PRN [place] rectal pain/itching; Start 03/16/18 at 13:00 Methylprednisolone Sodium Succinate (Solu-Medrol) 40 mg DAILY IV Last administered on 03/19/18 08:46; Admin Dose 40 MG; Start 03/19/18 at 09:00 KERON WILKINSON Mar 19, 2018 12:55
--- NOTE | 2018-03-19 13:00 | NUR ---
talk with Geoffreypari mutuel ticket seller () regarding the patient is still having bloody diarrhea.she said''i spoke with her and she is getting better now''
[2018-03-19 14:00] VITALS: BP 120/62; PULSE 84; RESP 20
--- NOTE | 2018-03-19 14:00 | NUR ---
text regarding the low pottassium level today.3.4.no new orders received . Addendum: 03/19/18 at 1442 by RAQUEL KAYE RN Amended: Links added.
[2018-03-19] MEDS ORDERED: POTASSIUM CHLORIDE (SR) 20 MEQ TAB PO STA (14:55)
--- NOTE | 2018-03-19 17:25 | PN ---
Date/Time of Note Date/Time of Note DATE: 03/19/18 TIME: 17:25 Assessment/Plan VTE Prophylaxis Risk score (from Nsg)>0 risk: 1 SCD applied (from Nsg): Yes Pharmacological prophylaxis: heparin Lines/Catheters IV Catheter Type (from Nrsg): Saline Lock Urinary Cath still in place: No Assessment/Plan Hospital Course 47 yo female with IBD flare - steroids per GI - pain control - advanced diet - continue zoysn course given sepsis on arrival Iron deficiency anemia: - IV iron Result Diagram: 03/19/18 0655 03/19/18 0655 Results 24hrs Laboratory Tests Test 03/19/18 06:54 03/19/18 06:55 03/19/18 07:25 Iron Level 26 L Total Iron Binding Capacity 287 Percent Iron Saturation 9 L Ferritin 21.5 White Blood Count 6.8 Red Blood Count 4.65 Hemoglobin 9.9 L Hematocrit 33.6 L Mean Corpuscular Volume 72.3 L Mean Corpuscular Hemoglobin 21.3 L Mean Corpuscular 29.5 L Hemoglobin Concent Red Cell Distribution Width 23.7 H Platelet Count 575 #H Mean Platelet Volume 7.9 Immature Granulocytes % 1.000 H Neutrophils % 53.0 Lymphocytes % 36.4 Monocytes % 8.6 Eosinophils % 0.9 Basophils % 0.1 Nucleated Red Blood Cells % 0.4 H Immature Granulocytes # 0.070 H Neutrophils # 3.6 Lymphocytes # 2.5 Monocytes # 0.6 Eosinophils # 0.1 Basophils # 0.0 Nucleated Red Blood Cells # 0.0 Sodium Level 136 Potassium Level 3.4 L Chloride Level 100 Carbon Dioxide Level 28 Anion Gap 8 Blood Urea Nitrogen 6 L Creatinine 0.65 Est Glomerular Filtrat > 60 Rate mL/min Glucose Level 90 Calcium Level 8.4 Total Bilirubin 0.2 Direct Bilirubin 0.00 Indirect Bilirubin 0.2 Aspartate Amino 17 Transf (AST/SGOT) Alanine 18 Aminotransferase (ALT/SGPT) Alkaline Phosphatase 73 Total Protein 7.1 Albumin 3.2 L Globulin 3.90 H Albumin/Globulin Ratio 0.82 Lab Scanned Report BLOOD TRANSFUSION Subjective 24 Hr Interval Summary Free Text/Dictation Had diarrhea all night last night. Today has let up. No abdominal pain. Tolerating PO Exam/Review of Systems Vital Signs Vitals Vital Signs Date Temp Pulse Resp B/P (MAP) Pulse Ox O2 O2 Flow FiO2 Time Delivery Rate 03/19/18 98.8 84 20 120/62 96 14:00 (81) 03/19/18 Room Air 02:06 Intake and Output 03/18/18 03/18/18 03/19/18 1515:00 23:00 07:00 IntakeIntake Total 400 ml 100 ml 550 ml BalanceBalance 400 ml 100 ml 550 ml Exam Constitutional: alert, oriented, well developed Psych: no complaints, nl mood/affect Head: normocephalic, atraumatic Eyes: nl conjunctiva, EOMI, nl lids, nl sclera, PERRL ENMT: nl external ears & nose, nl lips & teeth, nl nasal mucosa & septum Neck: supple, non-tender Respiratory: clear to auscultation, normal air movement Cardiovascular: regular rate and rhythm, nl pulses Gastrointestinal: soft, nl liver, spleen, non-tender Musculoskeletal: nl extremities to inspection, nl gait and stance Extremities: normal pulses 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, nl mental status, nl speech, nl strength Skin: nl turgor; No rash or lesions Lymph: nl lymph nodes Medications Medications Current Medications IV Flush (NS 3 ml) 3 ml PER PROTOCOL IV ; Start 03/15/18 at 13:30 Ondansetron HCl (Zofran Inj) 4 mg Q6H PRN IV NAUSEA AND/OR VOMITING; Start 03/15/18 at 13:30 Acetaminophen (Tylenol Tab) 650 mg Q6H PRN PO PAIN LEVEL 1-3 OR FEVER; Start 03/15/18 at 13:30 Acetaminophen/ Hydrocodone Bitart ([place] (5/325)) 1 tab Q6H PRN PO PAIN LEVEL 4-6 Last administered on 03/16/18at 09:45; Admin Dose 1 TAB; Start 03/15/18 at 13:30 Pantoprazole (Protonix Iv) 40 mg DAILY@06 IV Last administered on 03/19/18at 06:41; Admin Dose 40 MG; Start 03/16/18 at 06:00 Piperacillin Sod/ Tazobactam Sod 100 ml @ 200 mls/hr Q6 IVPB Last administered on 03/19/18at 12:08; Admin Dose 200 MLS/HR; Start 03/15/18 at 18:00 Morphine Sulfate (morphine) 2 mg Q4H PRN IV PAIN LEVEL 7-10 Last administered on 03/17/18at 09:23; Admin Dose 2 MG; Start 03/15/18 at 16:00 Polyethylene Glycol (Miralax) 17 gm DAILY PRN PO constipation; Start 03/16/18 at 13:00 Hard Fat/ Phenylephrine (Anusol Supp) 1 supp BID PRN [place] rectal pain/itching; Start 03/16/18 at 13:00 Methylprednisolone Sodium Succinate (Solu-Medrol) 40 mg DAILY IV Last administered on 03/19/18at 08:46; Admin Dose 40 MG; Start 03/19/18 at 09:00 Ferric Sodium Gluconate Complex 125 mg/Sodium Chloride 100 ml @ 100 mls/hr DAILY@1300 IVPB ; Start 03/19/18 at 16:30; Stop 03/21/18 at 13:59 ROSANNA MCCABE MD Mar 19, 2018 17:25
[2018-03-19] MEDS: SOD FERRIC GLUC COMPLX 125 MG in SOD CHLORIDE 0.9% 100 ML IVPB SCH (18:20)
--- NOTE | 2018-03-19 18:58 | NUR ---
All needs met.no acute events.patient said''feel better today.less diarrhea and less blood loss with stool''did not receive any pain medication today.call light within reach.bed alarm on.gave kcl tab .as ordered for low ''k''level.she is sitting on the chair now.
[2018-03-19 19:48] VITALS: BP 110/70; PULSE 67; RESP 20
[2018-03-20 01:32] VITALS: BP 124/69; PULSE 78; RESP 18
[2018-03-20] MEDS: PANTOPRAZOLE 40 MG INJ IV SCH (05:23)
[2018-03-20] MEDS: PIPER-TAZO 3.375 GM IV (PMX) 100 ML IVPB SCH ×2 (05:23→11:06)
--- NOTE | 2018-03-20 06:14 | NUR ---
VS stable and pt afebrile. No acute changes or s/s of respiratory distress during shift. Pt denied having pain. Pt had less episodes of diarrhea and scant amount of blood in stool. Administered antibiotics as ordered. Hourly rounding provided. SCDs on and off. Fall precautions observed with call light within reach. Will endorse to oncoming nurse.
[2018-03-20 07:25] VITALS: BP 112/64; PULSE 79; RESP 16
[2018-03-20] MEDS: METHYLPREDNISOLONE 40 MG INJ IV SCH (08:30)
[2018-03-20] MEDS: SOD FERRIC GLUC COMPLX 125 MG in SOD CHLORIDE 0.9% 100 ML IVPB SCH (12:05)
[2018-03-20 14:06] VITALS: BP 108/56; PULSE 76; RESP 18
[2018-03-20] MEDS ORDERED: PRED20TA PO (14:38)
--- NOTE | 2018-03-20 14:39 | PDOCDIS ---
Discharge Instructions DIAGNOSIS Discharge Diagnosis IBD flare Colitis CONDITION [id number] Patient Condition: [id number] Stable FOLLOW UP/APPOINTMENTS Follow-up Plan See your healthcare specialist as soon as you can Return to the hospital if you have fever, abdominal pain, bloody stool, or any other concerning symptoms ROSANNA MCCABE MD Mar 20, 2018 14:39
--- NOTE | 2018-03-20 14:42 | DS ---
Date/Time of Note Date/Time of Note DATE: 03/20/18 TIME: 14:40 Discharge Summary Admission/Discharge Info Admit Date/Time Mar 15, 2018 at 13:07 Discharge Date/Time Discharge Diagnosis IBD flare Colitis Patient Condition: Stable Hospital Course 47 yo female with IBD who presented with fever, diarrhea and abdominal pain. CT was performed suggesive of crohn's disease flare. She was treated wtih IV zosyn and fever resolved. Gastroentrology gave IV steroids and symptoms improved. She was found to be iron deficient and was given 2 units of IV iron as well as 1 unit of PRBCs for blood loss anemia. She was given 4 more days of oral steroids to take as an outpatient and she will follow up next week with her cane splicer Home Meds Active Scripts Mesalamine* (Asacol HD) 800 Mg Tablet., 1800 MG PO TID, #60 TAB Prov:NUBIA ZIMMER DO 01/07/18 Reported Medications Adalimumab (Humira) 40 Mg/0.8 Ml Pen.ij.kit, 40 MG SQ TWO WEEKS 10/11/17 Lisinopril* (Lisinopril*) 10 Mg Tablet, 10 MG PO DAILY, #30 TAB 09/05/17 Pantoprazole* (Pantoprazole*) 40 Mg Tablet., 40 MG PO AC BREAKFAST, TAB 09/05/17 Discontinued Reported Medications Prednisone* (Prednisone*) 5 Mg Tab, PO DAILY, TAB PER PT ALTERNATE PREDNISONE FOR 14 DAYS 10/11/17 Discontinued Scripts Hydrocodone/Acetaminophen ([place] 10-325 Tablet) 1 Each Tablet, 1 TAB PO Q6H PRN for PAIN, #20 TAB Prov:NUBIA ZIMMER DO 01/07/18 Levofloxacin* (Levofloxacin*) 750 Mg Tablet, 750 MG PO DAILY, #7 TAB Prov:NUBIA ZIMMER DO 01/07/18 Prednisone* (Prednisone*) 20 Mg Tab, 60 MG PO DAILY for 5 Days, TAB Prov:NUBIA ZIMMER DO 01/07/18 Ondansetron (Ondansetron Odt) 8 Mg Tab.rapdis, 8 MG PO Q6H PRN for NAUSEA AND/OR VOMITING, #10 TAB Prov:NUBIA ZIMMER DO 01/07/18 Follow-up Plan See your cane splicer as soon as you can Return to the hospital if you have fever, abdominal pain, bloody stool, or any other concerning symptoms Primary Care Provider Not On Staff Doctor Pending Labs Laboratory Tests Test 03/20/18 05:35 White Blood Count 7.6 10^3/ul (4.8-10.8) Red Blood Count 4.69 10^6/ul (4.20-5.40) Hemoglobin 9.9 g/dl (12.0-16.0) Hematocrit 34.5 % (37.0-47.0) Mean Corpuscular Volume 73.6 fl (82.0-101.0) Mean Corpuscular Hemoglobin 21.1 pg (29.0-33.0) Mean Corpuscular Hemoglobin Concent 28.7 g/dl (32.0-37.0) Red Cell Distribution Width 23.8 % (11.5-14.5) Platelet Count 566 10^3/UL (140-415) Mean Platelet Volume 7.8 fl (7.4-10.4) Immature Granulocytes % 1.000 % (0.001-0.429) Neutrophils % 53.4 % (39.0-77.0) Lymphocytes % 37.1 % (15.0-51.0) Monocytes % 6.9 % (0.0-11.0) Eosinophils % 1.3 % (0.0-7.0) Basophils % 0.3 % (0.0-2.0) Nucleated Red Blood Cells % 0.0 /100WBC (0.0-0.0) Immature Granulocytes # 0.080 10^3/ul (0.0-0.031) Neutrophils # 4.1 10^3/ul (1.6-7.5) Lymphocytes # 2.8 10^3/ul (0.8-2.9) Monocytes # 0.5 10^3/ul (0.3-0.9) Eosinophils # 0.1 10^3/ul (0.0-0.5) Basophils # 0.0 10^3/ul (0.0-0.1) Nucleated Red Blood Cells # 0.0 10^3/ul (0.0-0.0) Erythrocyte Sedimentation Rate 36 mm/Hr (0-20) C-Reactive Protein 5.2 mg/dl (0.0-0.9) ROSANNA MCCABE MD Mar 20, 2018 14:42
--- NOTE | 2018-03-20 15:37 | NUR ---
patient alert and oriented x4. patient denies shortness of breath. no distress or pain noted. Patient's vital signs stayed within normal limits. remained afebrile. patient's prescriptions and discharge instructions given to patient. patient's belongings with pt. removed Iv access and dressing applied. no bleeding noted. patient's family picked up patient and patient taken down with wheelchair by volunteer.
== END 2018-03-20 17:00 | disposition home or self-care (01) | DRG 872 ==
LOC: FTE 10:09 → PP2 13:07
PROVIDERS: ADMIT Internal Medicine; ATTEND Internal Medicine
PROC: 30233N1 Transfusion of Nonautologous Red Blood Cells into Peripheral Vein, Percutaneous Approach (ICD-10-PCS; principal; 2018-03-16)
DX: A41.9 Sepsis, unspecified organism (principal); K92.1 Melena; A09 Infectious gastroenteritis and colitis, unspecified; D62 Acute posthemorrhagic anemia; K58.0 Irritable bowel syndrome with diarrhea; I10 Essential (primary) hypertension; R50.9 Fever, unspecified; K21.9 Gastro-esophageal reflux disease without esophagitis; K80.20 Calculus of gallbladder without cholecystitis without obstruction; K64.9 Unspecified hemorrhoids; Z90.710 Acquired absence of both cervix and uterus
CPT/HCPCS: 36415; 36430; 70450; 71045; 74176; 80048; 80053; 81001; 82728; 83036; 83540; 83605; 83690; 83735; 84100; 84484; 85025; 85610; 85651; 85730; 86140; 86850; 86900; 86901; 86920; 87040; 87045; 87075; 87086; 90686; 93005; C9113; J1200; J1956; J2270; J2543; J2916; J2920; J2930; J7030; J7040; P9016

== ENCOUNTER 2018-05-24 11:32 | Emergency (ER) | payer BC ==
[~2018-05-24] VITALS: Wt 64.3 kg
[~2018-05-24 11:32] MED LIST changes: -HYDR-3980 PO; -LEVO750T8 PO; -ONDA8TAB14 PO; -PRED5TAB PO
[2018-05-24] MEDS ORDERED: ACETAMINOPHEN 500 MG TAB PO STA (12:57)
[2018-05-24] MEDS ORDERED: PANT40TA4 PO (13:53)
[2018-05-24] MEDS ORDERED: LISI10TA2 PO (13:54)
[2018-05-24] MEDS ORDERED: KETOROLAC 15 MG INJ IV STA (13:56)
[2018-05-24] MEDS ORDERED: MESA0.372 PO (14:00)
[2018-05-24] MEDS ORDERED: SOD CHLORIDE 0.9% 1,000 ML IV ONE (14:00)
[2018-05-24] MEDS ORDERED: LACTINEX PO (14:01)
[2018-05-24] MEDS ORDERED: AMOX500C2 PO (14:18)
[2018-05-24] MEDS ORDERED: PROM6.256 PO (14:19)
[2018-05-24 15:00] VITALS: BP 135/75; PULSE 85; RESP 18
--- NOTE | 2018-05-24 15:28 | ERD ---
ER Documentation Chief Complaint Chief Complaint COUGH W CWP FROM COUGHING, RB W ANEMIA HX ULCERT COLITIS HPI This is a 47-year-old female presents with cough, congestion and sore throat. She has a history of ulcerative colitis, with a history of anemia, she denies any weakness, near syncope, she has not had any chest pain or shortness of breath. Symptoms have been ongoing for the last 3 days, her primary care doctor prescribed her ampicillin, she has been taking this for the last 3 days, today she noted that she had a fever and so presented here. Symptoms are alleviated with Tylenol, are not worsened by anything. Also having body aches. ROS All systems reviewed and are negative except as per history of present illness. Medications Home Meds Active Scripts Oseltamivir Phosphate* (Tamiflu*) 75 Mg Capsule, 75 MG PO BID for 5 Days, CAP Prov:KONSTANTIN LOMBARDO MD 05/24/18 Reported Medications Promethazine Hcl* (Phenergan* Liq) 6.25 Mg/5 Ml Syrup, 6.25 MG PO Q6H PRN for COUGH, ML 05/24/18 Amoxicillin* (Amoxicillin*) 500 Mg Cap, 500 MG PO TID, #20 CAP FOR 10 DAYS,START DATE 05/21/18 05/24/18 Lactobacillus Acidophilus* (Lactinex*) 1 Tab Chew, 1 TAB PO DAILY, TAB 05/24/18 Mesalamine* (Apriso*) 0.375 Gm Cap.sr.24h, 4 CAP PO DAILY, CAP 05/24/18 Lisinopril* (Lisinopril*) 10 Mg Tablet, 10 MG PO DAILY, #30 TAB 05/24/18 Pantoprazole* (Pantoprazole*) 40 Mg Tablet.dr, 40 MG PO AC BREAKFAST, TAB 05/24/18 Discontinued Reported Medications Adalimumab (Humira) 40 Mg/0.8 Ml Pen.ij.kit, 40 MG SQ TWO WEEKS 10/11/17 Lisinopril* (Lisinopril*) 10 Mg Tablet, 10 MG PO DAILY, #30 TAB 09/05/17 Pantoprazole* (Pantoprazole*) 40 Mg Tablet.dr, 40 MG PO AC BREAKFAST, TAB 09/05/17 Discontinued Scripts Prednisone* (Prednisone*) 20 Mg Tab, 40 MG PO DAILY for 4 Days, #8 TAB Prov:ROSANNA MCCABE MD 03/20/18 Mesalamine* (Asacol HD) 800 Mg Tablet., 1800 MG PO TID, #60 TAB Prov:NUBIA ZIMMER DO 01/07/18 Allergies Allergies: Coded Allergies: No Known Allergies (Verified Allergy, Unknown, 05/24/18) PMhx/Soc History of Surgery: Yes (hysterectomy 10 years ago, 2 C sections) Anesthesia Reaction: No Hx Neurological Disorder: No Hx Respiratory Disorders: No Hx Cardiac Disorders: Yes (HTN) Hx Psychiatric Problems: No Hx Miscellaneous Medical Probl: Yes (ULCERATIVE COLITIS) Hx Alcohol Use: No Hx Substance Use: No Hx Tobacco Use: No Smoking Status: Never smoker Physical Exam Vitals Vital Signs Date Temp Pulse Resp B/P (MAP) Pulse Ox O2 O2 Flow FiO2 Time Delivery Rate 05/24/18 85 18 135/75 99 Room Air 15:00 (95) 05/24/18 100.7 13:27 05/24/18 101.3 125 20 140/79 99 11:52 (99) Physical Exam Const: Fever noted, nontoxic-appearing Head: Atraumatic Eyes: Normal Conjunctiva ENT: Normal External Ears, Nose and Mouth. Neck: Full range of motion. No meningismus. Throat is erythematous, no exudate Resp: Clear to auscultation bilaterally, no wheezes rales or rhonchi Cardio: Regular rate and rhythm, no murmurs Abd: Soft, non tender, non distended. Normal bowel sounds Skin: No petechiae or rashes Back: No midline or flank tenderness Ext: No cyanosis, or edema Neur: Awake and alert Psych: Normal Mood and Affect Result Diagram: 05/24/18 1310 05/24/18 1310 Results 24 hrs Laboratory Tests Test 05/24/18 13:10 05/24/18 13:15 White Blood Count 9.5 10^3/ul Red Blood Count 3.81 10^6/ul Hemoglobin 8.5 g/dl Hematocrit 29.4 % Mean Corpuscular Volume 77.2 fl Mean Corpuscular Hemoglobin 22.3 pg Mean Corpuscular Hemoglobin Concent 28.9 g/dl Red Cell Distribution Width 18.5 % Platelet Count 623 10^3/UL Mean Platelet Volume 7.7 fl Immature Granulocytes % 0.800 % Neutrophils % 76.5 % Lymphocytes % 12.2 % Monocytes % 9.4 % Eosinophils % 0.8 % Basophils % 0.3 % Nucleated Red Blood Cells % 0.2 /100WBC Immature Granulocytes # 0.080 10^3/ul Neutrophils # 7.2 10^3/ul Lymphocytes # 1.2 10^3/ul Monocytes # 0.9 10^3/ul Eosinophils # 0.1 10^3/ul Basophils # 0.0 10^3/ul Nucleated Red Blood Cells # 0.0 10^3/ul Sodium Level 134 mmol/L Potassium Level 3.9 mmol/L Chloride Level 98 mmol/L Carbon Dioxide Level 26 mmol/L Anion Gap 10 Blood Urea Nitrogen 8 mg/dl Creatinine 0.88 mg/dl Est Glomerular Filtrat Rate mL/min > 60 mL/min Glucose Level 126 mg/dl Calcium Level 7.8 mg/dl Total Bilirubin 0.2 mg/dl Direct Bilirubin 0.00 mg/dl Indirect Bilirubin 0.2 mg/dl Aspartate Amino Transf (AST/SGOT) 14 IU/L Alanine Aminotransferase (ALT/SGPT) 15 IU/L Alkaline Phosphatase 106 IU/L Total Protein 6.8 g/dl Albumin 3.0 g/dl Globulin 3.80 g/dl Albumin/Globulin Ratio 0.78 Bedside Urine pH (LAB) 6.5 Bedside Urine Protein (LAB) Trace Bedside Urine Glucose (UA) Negative Bedside Urine Ketones (LAB) Negative Bedside Urine Blood 1+ Bedside Urine Nitrite (LAB) Negative Bedside Urine Leukocyte Esterase (L 1+ Current Medications Medications Dose Sig/Topher Start Time Status Last (Trade) Ordered Route PRN Stop Time Admin Dose Reason Admin 1,000 mg ONCE STAT 05/24/18 DC 05/24/18 Acetaminophen PO 12:57 13:27 (Tylenol 05/24/18 12:58 Tab) Sodium 1,000 ml @ Q1H ONCE 05/24/18 DC 05/24/18 Chloride 1,000 mls/hr IV 14:00 14:09 05/24/18 14:59 Ketorolac 15 mg ONCE STAT 05/24/18 DC 05/24/18 Tromethamine IV 13:56 14:09 (Toradol) 05/24/18 13:57 Procedures/MDM 47-year-old female presents for evaluation of cough sore throat and congestion. Exam reveals a well-appearing nontoxic female in no respiratory distress. Her chest x-ray was negative for signs of infection, her urinalysis showed trace leukocyte esterase, however she has no abdominal pain or urinary symptoms, thus I do not suspect UTI. She is currently on ampicillin, for suspected upper respiratory infection, I advised her to complete the course, additionally given her body aches, as well as her fever noted here, she could have influenza, thus I recommend empiric treatment for this with Tamiflu, patient was agreeable to this. At discharge patient was ambulatory, smiling, tolerating oral intake and in no distress. Departure Diagnosis: Primary Impression: Upper respiratory infection URI type: unspecified viral URI Qualified Codes: J06.9 - Acute upper r espiratory infection, unspecified Condition: Stable KONSTANTIN LOMBARDO MD May 24, 2018 15:28
[2018-05-24] MEDS ORDERED: OSEL75CA23 PO (15:29)
[2018-05-24] MEDS ORDERED: ADAL40PE SQ (23:41)
[2018-05-24] MEDS ORDERED: ACET-141 PO (23:42)
[2018-05-24] MEDS ORDERED: CETI10TA34 PO (23:42)
== END 2018-05-24 15:54 | disposition home or self-care (01) ==
LOC: E/R 11:32
DX: J06.9 Acute upper respiratory infection, unspecified (principal); I10 Essential (primary) hypertension
CPT/HCPCS: 36415; 71045; 80053; 81003; 85025; 87400; 96374; J1885; J7030; Z7502; Z7610

== ENCOUNTER 2018-05-24 20:13 | Inpatient (IN) | payer BC ==
[~2018-05-24] VITALS: Ht 152.4 cm; Wt 65.4 kg
[~2018-05-24 20:13] MED LIST changes: +AMOX500C2 PO; +LACTINEX PO; +MESA0.372 PO; +OSEL75CA23 PO; +PROM6.256 PO
[2018-05-24] MEDS ORDERED: SODIUM CHLORIDE 0.9% 1L BAG IV* STA (21:59)
[2018-05-24] MEDS ORDERED: KETOROLAC 30 MG INJ IV STA (21:59)
[2018-05-24] MEDS: PIPER-TAZO 3.375 GM IV (PMX) 100 ML IVPB STA ×2 (23:10→23:34)
[2018-05-24] MEDS ORDERED: SOD CHLORIDE 0.9% 100 ML ONE (23:15)
[2018-05-24] MEDS ORDERED: IOHEXOL 300MG/ML 150 ML BTL ONE (23:15)
[2018-05-24] MEDS ORDERED: ADAL40PE SQ (23:41)
[2018-05-24] MEDS ORDERED: ACET-141 PO (23:42)
[2018-05-24] MEDS ORDERED: CETI10TA34 PO (23:42)
[2018-05-25] MEDS ORDERED: ACETAMINOPHEN 325 MG TAB PO PRN ×2 (00:30)
[2018-05-25] MEDS ORDERED: NACL 0.9% 3 ML SYG IV SCH (00:30)
[2018-05-25] MEDS ORDERED: ALBUTEROL/IPRATROPIUM (NEB) 3 ML AMP HHN PRN (00:30)
[2018-05-25] MEDS ORDERED: NON-FORMULARY/PATIENT OWN MED (Adalimumab (Humira) 40 MG) SQ PRN (00:30)
[2018-05-25] MEDS ORDERED: ONDANSETRON 4 MG INJ IV PRN ×2 (00:30)
--- NOTE | 2018-05-25 00:31 | ERD ---
ER Documentation Chief Complaint Chief Complaint FLU SYMPTOMS; SEEN TODAY, DC'D FEELING WORSE HPI 47-year-old female with a history of ulcerative colitis and perianal fistula seen here earlier today, returning by ambulance for worsening symptoms. Patient has had fevers and chills since yesterday. She has not been feeling well for the past 1 week. She has been complaining of a cough and body aches. She has increased frequency of stools but states that the blood in her stools is less than usual. She does have chronic hematochezia. She does endorse abdominal pain which is chronic for her as well. She was seen here earlier today and diagnosed with a possible flu. Her workup only showed evidence of anemia which is chronic for her. However the patient went home and started feeling worse with increasing fevers and chills. She was brought in by ambulance from home for further evaluation. She is complaining of cough with mild shortness of breath. ROS All systems reviewed and are negative except as per history of present illness. Medications Home Meds Active Scripts Oseltamivir Phosphate* (Tamiflu*) 75 Mg Capsule, 75 MG PO BID for 5 Days, CAP Prov:KONSTANTIN LOMBARDO MD 05/24/18 Reported Medications Acetaminophen* (Acetaminophen*) 500 MG Extra Strength Tablet, 500 MG PO Q4H PRN for PAIN AND OR ELEVATED TEMP, TAB 05/24/18 Cetirizine Hcl* (Cetirizine Hcl*) 10 Mg Tab.chew, 10 MG PO DAILY, #30 TAB 05/24/18 Adalimumab (Humira) 40 Mg/0.8 Ml Pen.ij.kit, 40 MG SQ QOTHERWEEK PRN for EVERYOTHERWEEK 05/24/18 Amoxicillin* (Amoxicillin*) 500 Mg Cap, 500 MG PO TID, #20 CAP FOR 10 DAYS,START DATE 05/21/18 05/24/18 Lactobacillus Acidophilus* (Lactinex*) 1 Tab Chew, 1 TAB PO DAILY, TAB 05/24/18 Mesalamine* (Apriso*) 0.375 Gm Cap.sr.24h, 4 CAP PO DAILY, CAP 05/24/18 Lisinopril* (Lisinopril*) 10 Mg Tablet, 10 MG PO DAILY, #30 TAB 05/24/18 Pantoprazole* (Pantoprazole*) 40 Mg Tablet.dr, 40 MG PO AC BREAKFAST, TAB 05/24/18 Discontinued Reported Medications Promethazine Hcl* (Phenergan* Liq) 6.25 Mg/5 Ml Syrup, 6.25 MG PO Q6H PRN for COUGH, ML 05/24/18 Adalimumab (Humira) 40 Mg/0.8 Ml Pen.ij.kit, 40 MG SQ TWO WEEKS 10/11/17 Lisinopril* (Lisinopril*) 10 Mg Tablet, 10 MG PO DAILY, #30 TAB 09/05/17 Pantoprazole* (Pantoprazole*) 40 Mg Tablet.dr, 40 MG PO AC BREAKFAST, TAB 09/05/17 Discontinued Scripts Prednisone* (Prednisone*) 20 Mg Tab, 40 MG PO DAILY for 4 Days, #8 TAB Prov:ROSANNA MCCABE MD 03/20/18 Mesalamine* (Asacol HD) 800 Mg Tablet., 1800 MG PO TID, #60 TAB Prov:NUBIA ZIMMER DO 01/07/18 Allergies Allergies: Coded Allergies: No Known Allergies (Verified Allergy, Unknown, 05/24/18) PMhx/Soc History of Surgery: Yes (hysterectomy 10 years ago, 2 C sections) Anesthesia Reaction: No Hx Neurological Disorder: No Hx Respiratory Disorders: No Hx Cardiac Disorders: Yes (HTN) Hx Psychiatric Problems: No Hx Miscellaneous Medical Probl: Yes (ULCERATIVE COLITIS, anemia) Hx Alcohol Use: No Hx Substance Use: No Hx Tobacco Use: No Smoking Status: Never smoker FmHx Family History: No diabetes Physical Exam Vitals Vital Signs Date Temp Pulse Resp B/P (MAP) Pulse Ox O2 O2 Flow FiO2 Time Delivery Rate 05/24/18 99.9 106 22 98/59 (72) 100 Room Air 23:53 05/24/18 102.8 113 23 117/69 100 Room Air 23:07 (85) 05/24/18 103.6 129 20 123/64 99 21:04 (83) Physical Exam Const: Ill-appearing, nontoxic, no apparent distress Head: Atraumatic Eyes: PERRLA. EOMI. Normal Conjunctiva ENT: Dry mucous membranes. Normal External Ears, Nose and Mouth. Neck: Full range of motion. No meningismus. Resp: Clear to auscultation bilaterally Cardio: Tachycardic with regular rhythm, no murmurs Abd: Soft, diffuse mild tenderness with no rebound or guarding, non distended. Normal bowel sounds Rectal: seton in perianal fistula, no active rectal bleeding. There is mild surrounding tenderness around the fistula but no erythema or fluctuance. Skin: No petechiae or rashes Back: No midline or flank tenderness Ext: No cyanosis, or edema Neur: Awake and alert Psych: Normal Mood and Affect Result Diagram: 05/24/18221205/24/18 221 Results 24 hrs Laboratory Tests Test 05/24/18 22:13 05/24/18 22:53 White Blood Count 7.4 10^3/ul Red Blood Count 3.41 10^6/ul Hemoglobin 7.7 g/dl Hematocrit 26.4 % Mean Corpuscular Volume 77.4 fl Mean Corpuscular Hemoglobin 22.6 pg Mean Corpuscular Hemoglobin Concent 29.2 g/dl Red Cell Distribution Width 18.3 % Platelet Count 533 10^3/UL Mean Platelet Volume 7.6 fl Immature Granulocytes % 0.800 % Neutrophils % 73.0 % Lymphocytes % 11.9 % Monocytes % 12.7 % Eosinophils % 1.2 % Basophils % 0.4 % Nucleated Red Blood Cells % 0.0 /100WBC Immature Granulocytes # 0.060 10^3/ul Neutrophils # 5.4 10^3/ul Lymphocytes # 0.9 10^3/ul Monocytes # 0.9 10^3/ul Eosinophils # 0.1 10^3/ul Basophils # 0.0 10^3/ul Nucleated Red Blood Cells # 0.0 10^3/ul Sodium Level 133 mmol/L Potassium Level 3.6 mmol/L Chloride Level 101 mmol/L Carbon Dioxide Level 24 mmol/L Anion Gap 8 Blood Urea Nitrogen 8 mg/dl Creatinine 0.71 mg/dl Est Glomerular Filtrat Rate mL/min > 60 mL/min Glucose Level 128 mg/dl Lactic Acid Level 2.5 mmol/L Calcium Level 7.6 mg/dl Troponin I < 0.012 ng/ml POC Beta HCG, Qualitative NEGATIVE Current Medications Medications Dose Sig/Topher Start Time Status Last (Trade) Ordered Route PRN Stop Time Admin Dose Reason Admin Sodium 1,960 ml BOLUS OVER 2 05/24/18 DC 05/24/18 Chloride HOURS STAT 21:59 22:18 (NS) IV* 05/24/18 22:03 Ketorolac 30 mg ONCE STAT 05/24/18 DC 05/24/18 Tromethamine IV 21:59 22:57 (Toradol) 05/24/18 22:03 Piperacillin 100 ml @ ONCE STAT 05/24/18 DC Sod/ 200 mls/hr IVPB 23:10 Tazobactam 05/24/18 23:39 Sod Sodium 100 ml @ ud STK-MED 05/24/18 DC 05/24/18 Chloride ONCE .ROUTE 23:15 23:34 05/24/18 23:16 Iohexol 150 ml STK-MED 05/24/18 DC 05/24/18 (Omnipaque ONCE .ROUTE 23:15 23:34 300mg/ ml) 05/24/18 23:16 Ondansetron 4 mg BRIDGE ORDER 05/25/18 HCl (Zofran PRN IV 00:00 Inj) NAUSEA/VOMITI 05/25/18 23:59 NG 650 mg ER BRIDGE 05/25/18 Acetaminophen PRN PO 00:00 (Tylenol .MILD PAIN 05/25/18 23:59 Tab) 1-3 OR TEMP IV Flush 3 ml PER 05/25/18 UNV (NS 3 ml) PROTOCOL IV 00:30 Ondansetron 4 mg Q6H PRN 05/25/18 UNV HCl (Zofran IV 00:30 Inj) NAUSEA/VOMITI NG 650 mg Q6H PRN 05/25/18 UNV Acetaminophen PO .PAIN 1-3 00:30 (Tylenol OR TEMP Tab) Heparin 5,000 unit Q12 SC 05/25/18 UNV Sodium 09:00 (Porcine) (Heparin (5000 Units/1ml)) Albuterol/ 3 ml Q2H RESP 05/25/18 UNV Ipratropium THERAPY PRN 00:30 (Duoneb) HHN SHORTNESS OF BREATH Lisinopril 10 mg DAILY PO 05/25/18 UNV (Zestril) 09:00 40 mg AC 05/25/18 UNV Pantoprazole BREAKFAST 07:00 (Protonix PO Tab) 40 mg QOTHERWEEK 05/25/18 UNV Miscellaneous PRN SQ 00:30 Information EVERYOTHERWEE K 10 mg DAILY PO 05/25/18 UNV Miscellaneous 09:00 Information 4 cap DAILY PO 05/25/18 UNV Miscellaneous 09:00 Information Procedures/MDM EMERGENT LABS AND DIAGNOSTIC STUDIES: Lab Results above were reviewed and interpreted by me. CBC: Anemia, worse than previous. Thrombocytosis, likely due to acute phase reaction BMP: No evidence of electrolyte abnormality, renal failure, hypoglycemia. Hypoglycemic Troponin within normal limits, not indicative of cardiac ischemia Lactate elevated, consistent with severe sepsis UA(from previous visit today): no evidence of infection 12-lead EKG was interpreted by Tim Last MD: Sinus tachycardia at 114 beats per minute Normal axis Normal intervals No acute ST or T wave changes suggestive of acute ischemia or STEMI. Radiology Results as interpreted by Radiology below were reviewed by Antoinette Last MD: Chest x-ray reviewed from earlier today, no acute abnormalities CT pelvis: 1. Acute proctocolitis of the distal colon and rectum is similar to the prior exam and may be due to inflammatory bowel disease or infection. Negative for pe rirectal abscess. 2. Status post placement of a seton in a posterior perianal fistula that is unch anged from the prior exam. Initial Nursing notes reviewed. Previous Medical Records requested via the Electronic Health Record. EMERGENCY DEPARTMENT COURSE / MEDICAL DECISION MAKING: Patient is presenting with fever and tachycardia with worsening symptoms, concerning for sepsis. Source of infection is unclear at this time. She was having some flulike symptoms. I reviewed her labs from earlier today which showed a normal x-ray and no evidence of a UTI. Her labs were notable for anemia which is chronic for her as well as thrombocytosis. Her flu test was negative but she was given Tamiflu for presumed influenza given her symptoms. Upon my evaluation, she does now complain of rectal pain. CT of the pelvis was done and shows evidence of acute proctocolitis. She was treated with IV fluids and antibiotics with improvement of her symptoms. There is evidence of severe sepsis. Patient's infectious symptoms have not stabilized and the patient is at risk of rapid decompensation. The patient will be admitted for careful hydration, antibiotic therapy, and infectious source control. Severe Sepsis Assessment: Infectious Source: Proctocolitis End organ damage indicated by: Lactate > 2.0 mmol/L Severe Sepsis Managment: Blood Cultures X 2 before broad spectrum antibiotics initiated within 3 hours of recognition. 30 ml/kg NS bolus Completed Initial Lactate: 2.5 Repeat Lactate pending Critical Care: Time: 35 minutes Treatments/Evaluations: Emergent fluid management, while maintaining close respiratory support. Immediate broad spectrum antibiotic therapy. Simultaneous assessment for possible sources in order to direct therapy. Consideration for invasive and chemical support to prevent respiratory or cardiac collapse. Septic Shock Assessment (1 hour post 30 ml/kg fluid bolus): Hypotension (SBP < 90 or 40 mmHg drop, MAP < 65): No Lactic acid > 4.0 no Accepting Care Team: Current data and ongoing care discussed. Time: Time of admission Primary Provider: Dr. 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
[2018-05-25 01:52] VITALS: BP 98/56; PULSE 97; RESP 18
[2018-05-25 02:35] VITALS: Ht 152.4 cm; Wt 65.4 kg
--- NOTE | 2018-05-25 05:54 | HP ---
Date/Time of Note Date/Time of Note DATE: 05/25/18 TIME: 05:47 Assessment/Plan VTE Prophylaxis SCD applied (from Nsg): Yes Pharmacological prophylaxis: NA/contraindicated Pharm contraindication: bleeding Lines/Catheters IV Catheter Type (from Nrsg): Saline Lock Urinary Cath still in place: No Assessment/Plan Assessment/Plan 1. Sepsis as evidenced by fever and tachycardia: Secondary to acute proctitis/UC flare and also possibly URI -IV antibiotic -Flu negative -Follow-up culture results 2. Ulcerative colitis, patient with a history of rectal fistula: Continue home meds including mesalamine. Will give steroid for a CT finding of acute proctitis -Consider GI consult 3. Anemia from GI blood loss and the resultant iron deficiency -Status post IV iron during recent hospitalization -Check ferritin/iron and decide about additional IV iron -Transfuse PRBCs as needed Result Diagram: 05/24/18 2213 05/24/18 2213 Results 24hrs Laboratory Tests Test 05/24/18 22:13 05/24/18 22:53 05/25/18 00:16 05/25/18 00:52 White Blood Count 7.4 # Red Blood Count 3.41 L Hemoglobin 7.7 L Hematocrit 26.4 L Mean Corpuscular 77.4 L Volume Mean Corpuscular 22.6 L Hemoglobin Mean Corpuscular 29.2 L Hemoglobin Concent Red Cell 18.3 H Distribution Width Platelet Count 533 H Mean Platelet Volume 7.6 Immature 0.800 H Granulocytes % Neutrophils % 73.0 Lymphocytes % 11.9 L Monocytes % 12.7 H Eosinophils % 1.2 Basophils % 0.4 Nucleated Red Blood 0.0 Cells % Immature 0.060 H Granulocytes # Neutrophils # 5.4 Lymphocytes # 0.9 Monocytes # 0.9 Eosinophils # 0.1 Basophils # 0.0 Nucleated Red Blood 0.0 Cells # Sodium Level 133 L Potassium Level 3.6 Chloride Level 101 Carbon Dioxide Level 24 Anion Gap 8 Blood Urea Nitrogen 8 Creatinine 0.71 Est Glomerular > 60 Filtrat Rate mL/min Glucose Level 128 Lactic Acid Level 2.5 *H 0.9 1.1 Calcium Level 7.6 L Troponin I < 0.012 POC Beta HCG, NEGATIVE Qualitative HPI/ROS Admit Date/Time Admit Date/Time May 24, 2018 at 23:48 Hx of Present Illness 47-year-old female with a history of hypertension, 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 Patient presents the ER complaining of fever/chills, generalized body ache and cough. Patient was seen in our ER earlier for cough and generalized body ache. Patient was discharged with Tamiflu for suspected flu. Patient returned to ER again complaining of fever/chills. She also reported loose stools and chronic rectal bleeding. Patient was admitted here recently for UC flare. When presented to ER, patient was febrile with a temperature of 103.6, heart rate 129. WBC 7. Hemoglobin when patient came earlier was 8.5 and now 7.7. During last hospitalization patient was found to be iron deficient and was given IV iron and also blood transfusion for anemia with a hemoglobin in the 6 range PMH/Family/Social Past Medical History Medical History: other (See HPI) Medications Current Medications Ondansetron HCl (Zofran Inj) 4 mg BRIDGE ORDER PRN IV NAUSEA/VOMITING; Start 05/25/18 at 00:00; Stop 05/25/18 at 23:59 Acetaminophen (Tylenol Tab) 650 mg ER BRIDGE PRN PO .MILD PAIN 1-3 OR TEMP; Start 05/25/18 at 00:00; Stop 05/25/18 at 23:59 IV Flush (NS 3 ml) 3 ml PER PROTOCOL IV ; Start 05/25/18 at 00:30 Ondansetron HCl (Zofran Inj) 4 mg Q6H PRN IV NAUSEA/VOMITING; Start 05/25/18 at 00:30 Acetaminophen (Tylenol Tab) 650 mg Q6H PRN PO .PAIN 1-3 OR TEMP; Start 05/25/18 at 00:30 Albuterol/ Ipratropium (Duoneb) 3 ml Q2H RESP THERAPY PRN HHN SHORTNESS OF BREATH; Start 05/25/18 at 00:30 Lisinopril (Zestril) 10 mg DAILY PO ; Start 05/25/18 at 09:00 Pantoprazole (Protonix Tab) 40 mg AC BREAKFAST PO ; Start 05/25/18 at 07:00 Miscellaneous Information 40 mg QOTHERWEEK PRN SQ EVERYOTHERWEEK; Start 05/25/18 at 00:30; Status UNV Miscellaneous Information 10 mg DAILY PO ; Start 05/25/18 at 09:00; Status UNV Miscellaneous Information 4 cap DAILY PO ; Start 05/25/18 at 09:00; Status UNV Methylprednisolone Sodium Succinate (Solu-Medrol) 60 mg ONCE ONCE IV ; Start 05/25/18 at 09:00; Stop 05/25/18 at 09:01 Piperacillin Sod/ Tazobactam Sod 100 ml @ 200 mls/hr Q6 IVPB ; Start 05/25/18 at 06:00 Coded Allergies: No Known Allergies (Verified Allergy, Unknown, 05/24/18) Past Surgical History Past Surgical Hx: other (See HPI) Family History Significant Family History: no pertinent family hx Social History Alcohol Use: none Smoking Status: Never smoker Drug Use: none Exam/Review of Systems Vital Signs Vitals Vital Signs Date Temp Pulse Resp B/P (MAP) Pulse Ox O2 O2 Flow FiO2 Time Delivery Rate 05/25/18 98.8 97 18 98/56 (70) 100 01:52 05/25/18 Room Air 01:21 Intake and Output 05/24/18 05/24/18 05/25/18 1515:00 23:00 07:00 IntakeIntake Total 340 ml BalanceBalance 340 ml Exam Constitutional: other (Patient appears uncomfortable.) Head: normocephalic, atraumatic Eyes: EOMI, PERRL Respiratory: clear to auscultation, normal air movement Cardiovascular: other (Tachycardic regular rhythm) Gastrointestinal: soft, other (Tenderness to deep palpation in the periumbilical area. No guarding. No rigidity) Extremities: normal pulses PEREZ MISHRA MD May 25, 2018 05:54
[2018-05-25] MEDS: PANTOPRAZOLE (EC) 40 MG TAB PO SCH (06:26)
[2018-05-25] MEDS: PIPER-TAZO 3.375 GM IV (PMX) 100 ML IVPB SCH ×2 (06:26→12:06)
[2018-05-25 07:41] VITALS: BP 115/64; PULSE 107; RESP 18
[2018-05-25] MEDS ORDERED: HEPARIN 5,000 UNIT/1 ML VIAL SC SCH (09:00)
[2018-05-25] MEDS ORDERED: MESALAMINE PO SCH (09:00)
[2018-05-25] MEDS: LISINOPRIL 10 MG TAB PO SCH (09:25)
[2018-05-25] MEDS: LORATADINE 10 MG TAB PO SCH (09:25)
[2018-05-25] MEDS: METHYLPREDNISOLONE 125 MG INJ IV ONE ×2 (09:25→09:28)
[2018-05-25 12:57] VITALS: BP 100/59; PULSE 98; RESP 18
[2018-05-25] MEDS ORDERED: POTASSIUM CHLORIDE 20 MEQ POWDER FOR ORAL SOLN PO ONE (13:30)
[2018-05-25] MEDS ORDERED: GUAIFENESIN/CODEINE 5ML CUP PO PRN (13:30)
--- NOTE | 2018-05-25 14:10 | PN ---
Date/Time of Note Date/Time of Note DATE: 05/25/18 TIME: 14:10 Objective Vitals Vital Signs Date Temp Pulse Resp B/P (MAP) Pulse Ox O2 O2 Flow FiO2 Time Delivery Rate 05/25/18 98.5 98 18 100/59 98 Room Air 12:57 (73) Intake and Output 05/24/18 05/24/18 05/25/18 1515:00 23:00 07:00 IntakeIntake Total 340 ml BalanceBalance 340 ml Results Result Diagram: 05/25/18 0552 05/25/18 0552 Medications Medications Current Medications Ondansetron HCl (Zofran Inj) 4 mg BRIDGE ORDER PRN IV NAUSEA/VOMITING; Start 05/25/18 at 00:00; Stop 05/25/18 at 23:59 Acetaminophen (Tylenol Tab) 650 mg ER BRIDGE PRN PO .MILD PAIN 1-3 OR TEMP; Start 05/25/18 at 00:00; Stop 05/25/18 at 23:59 IV Flush (NS 3 ml) 3 ml PER PROTOCOL IV ; Start 05/25/18 at 00:30 Ondansetron HCl (Zofran Inj) 4 mg Q6H PRN IV NAUSEA/VOMITING; Start 05/25/18 at 00:30 Acetaminophen (Tylenol Tab) 650 mg Q6H PRN PO .PAIN 1-3 OR TEMP; Start 05/25/18 at 00:30 Albuterol/ Ipratropium (Duoneb) 3 ml Q2H RESP THERAPY PRN HHN SHORTNESS OF BREATH; Start 05/25/18 at 00:30 Lisinopril (Zestril) 10 mg DAILY PO Last administered on 05/25/18at 09:25; Admin Dose 10 MG; Start 05/25/18 at 09:00 Pantoprazole (Protonix Tab) 40 mg AC BREAKFAST PO Last administered on 05/25/18at 06:26; Admin Dose 40 MG; Start 05/25/18 at 07:00 Miscellaneous Information 40 mg QOTHERWEEK PRN SQ EVERYOTHERWEEK; Start 05/25/18 at 00:30; Status UNV Loratadine (Claritin) 10 mg DAILY PO Last administered on 05/25/18at 09:25; Admin Dose 10 MG; Start 05/25/18 at 09:00 Miscellaneous Information 4 cap DAILY PO ; Start 05/25/18 at 09:00; Status UNV Piperacillin Sod/ Tazobactam Sod 100 ml @ 200 mls/hr Q6 IVPB Last administered on 05/25/18at 12:06; Admin Dose 200 MLS/HR; Start 05/25/18 at 06:00 Sodium Chloride 1,000 ml @ 50 mls/hr Q20H IV ; Start 05/25/18 at 13:30; Stop 05/26/18 at 09:29 Guaifenesin/ Codeine Phosphate (Robitussin Ac Liquid Cup) 5 ml Q4H PRN PO cough; Start 05/25/18 at 13:30 Ciprofloxacin (Cipro) 500 mg BID@06,18 PO ; Start 05/25/18 at 18:00; Status UNV Metronidazole (Flagyl) 500 mg Q8 PO ; Start 05/25/18 at 14:00; Status UNV VTE Prophylaxis Risk score (from [facility] [place])>0 risk: 1 SCD applied (from [facility] [place]): Yes Lines/Catheters IV Catheter Type: Purcell in Place: No Assessment/Plan Hospital Course Subjective Patient feeling okay however still complaining of lower abdominal pain as well as rectal pain Objective Physical exam General: Patient is laying in bed and answers questions appropriately Mentation: Patient is alert and oriented 4, Head: Normocephalic atraumatic Eyes: EOMI, pupils reactive to light Neck: Supple, nontender, midline Respiratory: Clear to auscultation bilaterally Cardiovascular: regular rate, no obvious murmurs Gastrointestinal: Moderately tender to lower abdomen to palpation, bowel sounds heard. Neurological: Moves all extremities spontaneously Skin: No new skin lesions Assessment and plan Sepsis -Blood cultures -IV antibiotic -Flu negative -IV fluid as needed Ulcerative colitis, possibly exacerbation -GI on board, recommendations appreciated -Steroids -Hold Humira for now, continue at home -Continue mesalamine per GI recommendations Other inflammatory issue in the colon -IV antibiotic, -Monitor Anemia, GI blood loss and iron deficiency -Got IV iron during recent hospital physician -Follow-up with iron panel -Transfuse as needed Hypertension -Continue home meds when able GERD -Continue home meds Disposition KONSTANTIN ALDRICH May 25, 2018 14:10
--- NOTE | 2018-05-25 14:16 | CONS ---
Assessment/Plan Assessment/Plan Assessment/Plan (Daily) Assessment: Fevers and chills Hx of ulcerative colitis, likely flare up. Diarrhea Abdominal pain Plan: Will start a course of antibiotics with cipro and flagyl. Will start prednisone 40 mg daily. Check stool studies for O/P, cultures. Check UA Low fiber diet. Monitor H/H. Monitor WBC Patient seen in collaboration with Dr. Pham. 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 The patient reports a fever at home associated with a nonproductive cough, for which she saw her primary care doctor and was given a course of amoxicillin and some cough syrup. 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 She reports her last colonoscopy was in 08/2018. Patient was previously seen in ER complaining of the above symptoms and was admitted for further workup. Patient was seen in our ER earlier for cough and generalized body ache. Patient was discharged with Tamiflu for suspected flu. Patient returned to ER again complaining of fever/chills. She also reports frequent diarrhea associated with rectal bleeding. She also reports associated abdominal pain. Patient was admitted here recently for UC flare. She reports prior ulcerative colitis flares have been treated with steroid and antibiotics. In the ER, patient was noted to be febrile with a temperature of 103.6, heart rate 129. WBC 7. Hemoglobin when patient came earlier was 8.5 and now 7.7. During last hospitalization patient was found to be iron deficient and was given IV iron and also blood transfusion for anemia with a hemoglobin in the 6 range A 10 point review of systems is otherwise negative except as noted in the above HPI. Past Medical History Medical History: other (See HPI) Home Meds Active Scripts Oseltamivir Phosphate* (Tamiflu*) 75 Mg Capsule, 75 MG PO BID for 5 Days, CAP Prov:KONSTANTIN LOMBARDO MD 05/24/18 Reported Medications Acetaminophen* (Acetaminophen*) 500 MG Extra Strength Tablet, 500 MG PO Q4H PRN for PAIN AND OR ELEVATED TEMP, TAB 05/24/18 Cetirizine Hcl* (Cetirizine Hcl*) 10 Mg Tab.chew, 10 MG PO DAILY, #30 TAB 05/24/18 Adalimumab (Humira) 40 Mg/0.8 Ml Pen.ij.kit, 40 MG SQ QOTHERWEEK PRN for EVERYOTHERWEEK 05/24/18 Amoxicillin* (Amoxicillin*) 500 Mg Cap, 500 MG PO TID, #20 CAP FOR 10 DAYS,START DATE 05/21/18 05/24/18 Lactobacillus Acidophilus* (Lactinex*) 1 Tab Chew, 1 TAB PO DAILY, TAB 05/24/18 Mesalamine* (Apriso*) 0.375 Gm Cap.sr.24h, 4 CAP PO DAILY, CAP 05/24/18 Lisinopril* (Lisinopril*) 10 Mg Tablet, 10 MG PO DAILY, #30 TAB 05/24/18 Pantoprazole* (Pantoprazole*) 40 Mg Tablet., 40 MG PO AC BREAKFAST, TAB 05/24/18 Discontinued Reported Medications Promethazine Hcl* (Phenergan* Liq) 6.25 Mg/5 Ml Syrup, 6.25 MG PO Q6H PRN for C OUGH, ML 05/24/18 Adalimumab (Humira) 40 Mg/0.8 Ml Pen.ij.kit, 40 MG SQ TWO WEEKS 10/11/17 Lisinopril* (Lisinopril*) 10 Mg Tablet, 10 MG PO DAILY, #30 TAB 09/05/17 Pantoprazole* (Pantoprazole*) 40 Mg Tablet.dr, 40 MG PO AC BREAKFAST, TAB 09/05/17 Discontinued Scripts Prednisone* (Prednisone*) 20 Mg Tab, 40 MG PO DAILY for 4 Days, #8 TAB Prov:ROSANNA MCCABE MD 03/20/18 Mesalamine* (Asacol HD) 800 Mg Tablet., 1800 MG PO TID, #60 TAB Prov:NUBIA ZIMMER DO 01/07/18 Medications Current Medications Ondansetron HCl (Zofran Inj) 4 mg BRIDGE ORDER PRN IV NAUSEA/VOMITING; Start 05/25/18 at 00:00; Stop 05/25/18 at 23:59 Acetaminophen (Tylenol Tab) 650 mg ER BRIDGE PRN PO .MILD PAIN 1-3 OR TEMP; Start 05/25/18 at 00:00; Stop 05/25/18 at 23:59 IV Flush (NS 3 ml) 3 ml PER PROTOCOL IV ; Start 05/25/18 at 00:30 Ondansetron HCl (Zofran Inj) 4 mg Q6H PRN IV NAUSEA/VOMITING; Start 05/25/18 at 00:30 Acetaminophen (Tylenol Tab) 650 mg Q6H PRN PO .PAIN 1-3 OR TEMP; Start 05/25/18 at 00:30 Albuterol/ Ipratropium (Duoneb) 3 ml Q2H RESP THERAPY PRN HHN SHORTNESS OF BREATH; Start 05/25/18 at 00:30 Lisinopril (Zestril) 10 mg DAILY PO Last administered on 05/25/18at 09:25; Admin Dose 10 MG; Start 05/25/18 at 09:00 Pantoprazole (Protonix Tab) 40 mg AC BREAKFAST PO Last administered on 05/25/18at 06:26; Admin Dose 40 MG; Start 05/25/18 at 07:00 Miscellaneous Information 40 mg QOTHERWEEK PRN SQ EVERYOTHERWEEK; Start 05/25/18 at 00:30; Status UNV Loratadine (Claritin) 10 mg DAILY PO Last administered on 05/25/18at 09:25; Admin Dose 10 MG; Start 05/25/18 at 09:00 Miscellaneous Information 4 cap DAILY PO ; Start 05/25/18 at 09:00; Status UNV Piperacillin Sod/ Tazobactam Sod 100 ml @ 200 mls/hr Q6 IVPB Last administered on 05/25/18at 12:06; Admin Dose 200 MLS/HR; Start 05/25/18 at 06:00 Sodium Chloride 1,000 ml @ 50 mls/hr Q20H IV ; Start 05/25/18 at 13:30; Stop 05/26/18 at 09:29 Guaifenesin/ Codeine Phosphate (Robitussin Ac Liquid Cup) 5 ml Q4H PRN PO cough; Start 05/25/18 at 13:30 Allergies: Coded Allergies: No Known Allergies (Verified Allergy, Unknown, 05/24/18) Past Surgical History Past Surgical Hx: other (See HPI) Social History Alcohol Use: none Smoking Status: Never smoker Drug Use: none Exam/Review of Systems Exam Vitals Vital Signs Date Temp Pulse Resp B/P (MAP) Pulse Ox O2 O2 Flow FiO2 Time Delivery Rate 05/25/18 98.5 98 18 100/59 98 Room Air 12:57 (73) Intake and Output 05/24/18 05/24/18 05/25/18 1515:00 23:00 07:00 IntakeIntake Total 340 ml BalanceBalance 340 ml Constitutional: alert, oriented Psych: no complaints Head: normocephalic, atraumatic Eyes: nl conjunctiva, EOMI, nl lids ENMT: nl external ears & nose, nl lips & teeth Neck: supple Respiratory: clear to auscultation, normal air movement Cardiovascular: regular rate and rhythm, nl pulses Gastrointestinal: soft, other (mildly tender to palpation.) Musculoskeletal: nl extremities to inspection Extremities: normal pulses Neurological: nl mental status, nl speech Skin: nl turgor Lymph: nl lymph nodes Results Result Diagram: 05/25/18 0552 05/25/18 0552 Results 24hrs Laboratory Tests Test 05/24/18 22:13 05/24/18 22:53 05/25/18 00:16 05/25/18 00:52 White Blood Count 7.4 # Red Blood Count 3.41 L Hemoglobin 7.7 L Hematocrit 26.4 L Mean Corpuscular 77.4 L Volume Mean Corpuscular 22.6 L Hemoglobin Mean Corpuscular 29.2 L Hemoglobin Concent Red Cell 18.3 H Distribution Width Platelet Count 533 H Mean Platelet Volume 7.6 Immature 0.800 H Granulocytes % Neutrophils % 73.0 Lymphocytes % 11.9 L Monocytes % 12.7 H Eosinophils % 1.2 Basophils % 0.4 Nucleated Red Blood 0.0 Cells % Immature 0.060 H Granulocytes # Neutrophils # 5.4 Lymphocytes # 0.9 Monocytes # 0.9 Eosinophils # 0.1 Basophils # 0.0 Nucleated Red Blood 0.0 Cells # Sodium Level 133 L Potassium Level 3.6 Chloride Level 101 Carbon Dioxide Level 24 Anion Gap 8 Blood Urea Nitrogen 8 Creatinine 0.71 Est Glomerular > 60 Filtrat Rate mL/min Glucose Level 128 Lactic Acid Level 2.5 *H 0.9 1.1 Calcium Level 7.6 L Troponin I < 0.012 POC Beta HCG, NEGATIVE Qualitative Test 05/25/18 01:30 05/25/18 05:52 Stool Occult Blood NEGATIVE White Blood Count 7.4 Red Blood Count 3.72 L Hemoglobin 8.4 L Hematocrit 28.9 L Mean Corpuscular 77.7 L Volume Mean Corpuscular 22.6 L Hemoglobin Mean Corpuscular 29.1 L Hemoglobin Concent Red Cell 18.1 H Distribution Width Platelet Count 590 H Mean Platelet Volume 7.8 Immature 0.700 H Granulocytes % Neutrophils % Segmented 28 L Neutrophils % (Manual) Band Neutrophils % 40 H (Manual) Lymphocytes % Lymphocytes % 16 (Manual) Monocytes % Monocytes % (Manual) 11 Eosinophils % Eosinophils % 4 (Manual) Basophils % Metamyelocytes % 1 H (manual) Nucleated Red Blood 0.0 Cells % Immature 0.050 H Granulocytes # Neutrophils # Neutrophils # 2.3 (Manual) Band Neutrophils # 2.9 H Lymphocytes (Manual) 1.1 Lymphocytes # Monocytes # Monocytes # (Manual) 0.8 Eosinophils # Basophils # Metamyelocytes # 0.0 Nucleated Red Blood Cells # Platelet Estimate INCREASED Giant Platelets 2 H Polychromasia 3+ Hypochromasia 1+ Poikilocytosis 1+ Anisocytosis 1+ Microcytosis 1+ Target Cells 1+ Sodium Level 136 Potassium Level 3.4 L Chloride Level 106 Carbon Dioxide Level 26 Anion Gap 4 L Blood Urea Nitrogen 6 L Creatinine 0.60 Est Glomerular > 60 Filtrat Rate mL/min Glucose Level 107 Calcium Level 7.9 L Phosphorus Level 3.4 Magnesium Level 2.0 Total Bilirubin 0.2 Direct Bilirubin 0.00 Indirect Bilirubin 0.2 Aspartate Amino 21 Transf (AST/SGOT) Alanine 13 Aminotransferase (AL T/SGPT) Alkaline Phosphatase 114 Total Protein 6.2 Albumin 2.6 L Globulin 3.60 H Albumin/Globulin 0.[address] abdomen/pelvis 05/25/18: IMPRESSION: 1. Acute proctocolitis of the distal colon and rectum is similar to the prior exam and may be due to inflammatory bowel disease or infection. Negative for perirectal abscess. 2. Status post placement of a seton in a posterior perianal fistula that is unchanged from the prior exam. Medications Medication Current Medications Ondansetron HCl (Zofran Inj) 4 mg BRIDGE ORDER PRN IV NAUSEA/VOMITING; Start 05/25/18 at 00:00; Stop 05/25/18 at 23:59 Acetaminophen (Tylenol Tab) 650 mg ER BRIDGE PRN PO .MILD PAIN 1-3 OR TEMP; Start 05/25/18 at 00:00; Stop 05/25/18 at 23:59 IV Flush (NS 3 ml) 3 ml PER PROTOCOL IV ; Start 05/25/18 at 00:30 Ondansetron HCl (Zofran Inj) 4 mg Q6H PRN IV NAUSEA/VOMITING; Start 05/25/18 at 00:30 Acetaminophen (Tylenol Tab) 650 mg Q6H PRN PO .PAIN 1-3 OR TEMP; Start 05/25/18 at 00:30 Albuterol/ Ipratropium (Duoneb) 3 ml Q2H RESP THERAPY PRN HHN SHORTNESS OF BR EATH; Start 05/25/18 at 00:30 Lisinopril (Zestril) 10 mg DAILY PO Last administered on 05/25/18at 09:25; Admin Dose 10 MG; Start 05/25/18 at 09:00 Pantoprazole (Protonix Tab) 40 mg AC BREAKFAST PO Last administered on 05/25/18at 06:26; Admin Dose 40 MG; Start 05/25/18 at 07:00 Miscellaneous Information 40 mg QOTHERWEEK PRN SQ EVERYOTHERWEEK; Start 05/25/18 at 00:30; Status UNV Loratadine (Claritin) 10 mg DAILY PO Last administered on 05/25/18at 09:25; Admin Dose 10 MG; Start 05/25/18 at 09:00 Miscellaneous Information 4 cap DAILY PO ; Start 05/25/18 at 09:00; Status UNV Piperacillin Sod/ Tazobactam Sod 100 ml @ 200 mls/hr Q6 IVPB Last administered on 05/25/18at 12:06; Admin Dose 200 MLS/HR; Start 05/25/18 at 06:00 Sodium Chloride 1,000 ml @ 50 mls/hr Q20H IV ; Start 05/25/18 at 13:30; Stop 05/26/18 at 09:29 Guaifenesin/ Codeine Phosphate (Robitussin Ac Liquid Cup) 5 ml Q4H PRN PO c ough; Start 05/25/18 at 13:30 RAJEEV WEISS NP May 25, 2018 14:11
[2018-05-25] MEDS: SOD CHLORIDE 0.9% 1,000 ML IV SCH (14:53)
[2018-05-25] MEDS: metroNIDAZOLE 500 MG TAB PO SCH ×2 (15:17→22:13)
[2018-05-25] MEDS: CIPROFLOXACIN 500 MG TAB PO SCH (18:18)
[2018-05-25 19:35] VITALS: BP 98/56; PULSE 102; RESP 18
[2018-05-26 01:37] VITALS: BP 111/68; PULSE 81; RESP 18
[2018-05-26 01:40] VITALS: BP 91/54; PULSE 65; RESP 18
[2018-05-26] MEDS: SOD CHLORIDE 0.9% 1,000 ML IV SCH (04:01)
[2018-05-26] MEDS: CIPROFLOXACIN 500 MG TAB PO SCH (06:43)
[2018-05-26] MEDS: metroNIDAZOLE 500 MG TAB PO SCH ×2 (06:43→13:35)
[2018-05-26] MEDS: PANTOPRAZOLE (EC) 40 MG TAB PO SCH (06:43)
[2018-05-26 07:53] VITALS: BP 108/63; PULSE 82; RESP 17
[2018-05-26] MEDS ORDERED: predniSONE 20 MG TAB PO SCH (09:00)
[2018-05-26] MEDS: LORATADINE 10 MG TAB PO SCH (10:04)
[2018-05-26] MEDS: LISINOPRIL 10 MG TAB PO SCH (10:05)
--- NOTE | 2018-05-26 11:17 | PN ---
Date/Time of Note Date/Time of Note DATE: 05/26/18 TIME: 11:16 Objective Vitals Vital Signs Date Temp Pulse Resp B/P (MAP) Pulse Ox O2 O2 Flow FiO2 Time Delivery Rate 05/26/18 97.8 82 17 108/63 97 07:53 (78) 05/25/18 Room Air 12:57 Intake and Output 05/25/18 05/25/18 05/26/18 1515:00 23:00 07:00 IntakeIntake Total 1960 ml 960 ml 925 ml BalanceBalance 1960 ml 960 ml 925 ml Results Result Diagram: 05/26/18 0550 05/26/18 0550 Medications Medications Current Medications IV Flush (NS 3 ml) 3 ml PER PROTOCOL IV ; Start 05/25/18 at 00:30 Ondansetron HCl (Zofran Inj) 4 mg Q6H PRN IV NAUSEA/VOMITING; Start 05/25/18 at 00:30 Acetaminophen (Tylenol Tab) 650 mg Q6H PRN PO .PAIN 1-3 OR TEMP; Start 05/25/18 at 00:30 Albuterol/ Ipratropium (Duoneb) 3 ml Q2H RESP THERAPY PRN HHN SHORTNESS OF BREATH; Start 05/25/18 at 00:30 Lisinopril (Zestril) 10 mg DAILY PO Last administered on 05/26/18at 10:05; Admin Dose 10 MG; Start 05/25/18 at 09:00 Pantoprazole (Protonix Tab) 40 mg AC BREAKFAST PO Last administered on 05/26/18at 06:43; Admin Dose 40 MG; Start 05/25/18 at 07:00 Loratadine (Claritin) 10 mg DAILY PO Last administered on 05/26/18at 10:04; Admin Dose 10 MG; Start 05/25/18 at 09:00 Guaifenesin/ Codeine Phosphate (Robitussin Ac Liquid Cup) 5 ml Q4H PRN PO cough; Start 05/25/18 at 13:30 Ciprofloxacin (Cipro) 500 mg BID@06,18 PO Last administered on 05/26/18at 06:43; Admin Dose 500 MG; Start 05/25/18 at 18:00 Metronidazole (Flagyl) 500 mg Q8 PO Last administered on 05/26/18at 06:43; Admin Dose 500 MG; Start 05/25/18 at 15:30 Prednisone (Prednisone) 40 mg DAILY PO Last administered on 05/26/18at 10:04; Admin Dose 40 MG; Start 05/26/18 at 09:00 Mesalamine (Delzicol Dr) 800 mg WITH MEALS PO ; Start 05/26/18 at 13:00 VTE Prophylaxis Risk score (from [facility])>0 risk: 1 [place] [facility] [place] SCD contraindication: other Lines/Catheters IV Catheter Type: Purcell in Place: No Assessment/Plan Hospital Course Subjective Patient states her abdominal pain and rectal pain has moderately improved Objective Physical exam General: Patient is laying in bed and answers questions appropriately Mentation: Patient is alert and oriented 4, Head: Normocephalic atraumatic Eyes: EOMI, pupils reactive to light Neck: Supple, nontender, midline Respiratory: Clear to auscultation bilaterally Cardiovascular: regular rate, no obvious murmurs Gastrointestinal: Mildly tender to lower abdomen to palpation, bowel sounds heard. Neurological: Moves all extremities spontaneously Skin: No new skin lesions Assessment and plan Sepsis -Blood cultures -IV antibiotic changed to p.o. -Flu negative -IV fluid as needed Ulcerative colitis, possibly exacerbation -GI on board, recommendations appreciated -Steroids -Hold Humira for now, continue at home -Continue mesalamine per GI recommendations Other inflammatory issue in the colon -IV antibiotic, now changed to p.o. -Monitor Anemia, acute on chronic GI blood loss and iron deficiency -Got IV iron during recent hospital physician -Iron panel noted -Transfuse as needed, giving 2 units today Hypertension -Continue home meds when able GERD -Continue home meds Disposition -Continue to monitor hemoglobin, if hemoglobin stable may be able to discharge in 1-2 days. KONSTANTIN ALDRICH May 26, 2018 11:17
[2018-05-26 12:30] VITALS: BP 108/66; PULSE 83; RESP 16
[2018-05-26] MEDS: MESALAMINE (EC) 400 MG CAP PO SCH ×2 (13:44→18:18)
--- NOTE | 2018-05-26 15:43 | PN ---
Date/Time of Note Date/Time of Note DATE: 05/26/18 TIME: 15:33 Assessment/Plan VTE Prophylaxis Risk score (from Ns)>0 risk: 1 SCD applied (from [facility]): No SCD contraindicated: low risk/ambulating Pharmacological prophylaxis: NA/contraindicated Pharm contraindication: bleeding Lines/Catheters IV Catheter Type (from [facility]): Urinary Cath still in place: No Assessment/Plan Hospital Course Assessment: Fevers and chills Hx of ulcerative colitis, likely flare up. Diarrhea Abdominal pain Anemia Plan: Change antibiotics to IV with cipro and flagyl. Increase prednisone 60 mg daily and change to IV. Continue mesalamine. Stool studies for O/P, cultures pending. C-diff negative. Check UA Low fiber diet. Monitor H/H. Transfuse as needed for Hgb <7.5 If rectal bleeding does not improve may need to consider repeat colonoscopy. Patient seen in collaboration with Dr. Pham. Subjective: Acute decrease in hemoglobin today to 6.7, currently getting transfused PRBC. Pablo ruiz reports diarrhea with bleeding 4 times yesterday. However, overall she reports bleeding improved and diarrhea improved from 10 times day previously. She reports minimal lower abdominal discomfort not associated with eating. Otherwise tolerating diet without nausea or vomiting. Denies any fevers. Result Diagram: 05/26/18 0550 05/26/18 0550 Results 24hrs Laboratory Tests Test 05/25/18 20:15 05/26/18 05:50 Urine Color YELLOW Urine Clarity CLEAR Urine pH 5.0 Urine Specific [place] 1.025 Urine Ketones TRACE A Urine Nitrite NEGATIVE Urine Bilirubin NEGATIVE Urine Urobilinogen 1+ H Urine Leukocyte Esterase TRACE A Urine Microscopic RBC 1 Urine Microscopic WBC 3 Urine Squamous Epithelial Cells FEW Urine Mucus FEW A Urine Hemoglobin NEGATIVE Urine Glucose 3+ H Urine Total Protein NEGATIVE White Blood Count 7.1 Red Blood Count 3.02 L Hemoglobin 6.7 #*L Hematocrit 23.6 L Mean Corpuscular Volume 78.1 L Mean Corpuscular Hemoglobin 22.2 L Mean Corpuscular Hemoglobin Concent 28.4 L Red Cell Distribution Width 18.0 H Platelet Count 500 H Mean Platelet Volume 8.0 Immature Granulocytes % 0.800 H Neutrophils % Segmented Neutrophils % (Manual) 31 L Band Neutrophils % (Manual) 43 H Lymphocytes % Lymphocytes % (Manual) 16 Reactive Lymphocytes % (Manual) 3 H Monocytes % Monocytes % (Manual) 7 Eosinophils % Basophils % Basophils % (Manual) 1 Nucleated Red Blood Cells % 1 H Immature Granulocytes # 0.060 H Neutrophils # Neutrophils # (Manual) 2.4 Band Neutrophils # 3.0 H Lymphocytes (Manual) 1.1 Lymphocytes # Reactive Lymphocytes # 0.2 H Monocytes # Monocytes # (Manual) 0.4 Eosinophils # Basophils # Basophils # (Manual) 0.0 Nucleated Red Blood Cells # Platelet Estimate NORMAL Giant Platelets 2 H Polychromasia 3+ Hypochromasia 1+ Poikilocytosis 1+ Anisocytosis 2+ Microcytosis 2+ Target Cells 1+ Sodium Level 139 Potassium Level 3.9 Chloride Level 108 Carbon Dioxide Level 25 Anion Gap 6 Blood Urea Nitrogen 9 Creatinine 0.49 Est Glomerular Filtrat Rate mL/min > 60 Glucose Level 105 Calcium Level 7.8 L Phosphorus Level 3.3 Magnesium Level 2.0 CC: DEBBI PHAM ; Exam/Review of Systems Exam Vitals Vital Signs Date Temp Pulse Resp B/P (MAP) Pulse Ox O2 O2 Flow FiO2 Time Delivery Rate 05/26/18 97.8 82 17 108/63 97 07:53 (78) 05/25/18 Room Air 12:57 Intake and Output 05/25/18 05/25/18 05/26/18 1515:00 23:00 07:00 IntakeIntake Total 1960 ml 960 ml 925 ml BalanceBalance 1960 ml 960 ml 925 ml Results Results 24hrs Laboratory Tests Test 05/25/18 20:15 05/26/18 05:50 Urine Color YELLOW Urine Clarity CLEAR Urine pH 5.0 Urine Specific [place] 1.025 Urine Ketones TRACE A Urine Nitrite NEGATIVE Urine Bilirubin NEGATIVE Urine Urobilinogen 1+ H Urine Leukocyte Esterase TRACE A Urine Microscopic RBC 1 Urine Microscopic WBC 3 Urine Squamous Epithelial Cells FEW Urine Mucus FEW A Urine Hemoglobin NEGATIVE Urine Glucose 3+ H Urine Total Protein NEGATIVE White Blood Count 7.1 Red Blood Count 3.02 L Hemoglobin 6.7 #*L Hematocrit 23.6 L Mean Corpuscular Volume 78.1 L Mean Corpuscular Hemoglobin 22.2 L Mean Corpuscular Hemoglobin Concent 28.4 L Red Cell Distribution Width 18.0 H Platelet Count 500 H Mean Platelet Volume 8.0 Immature Granulocytes % 0.800 H Neutrophils % Segmented Neutrophils % (Manual) 31 L Band Neutrophils % (Manual) 43 H Lymphocytes % Lymphocytes % (Manual) 16 Reactive Lymphocytes % (Manual) 3 H Monocytes % Monocytes % (Manual) 7 Eosinophils % Basophils % Basophils % (Manual) 1 Nucleated Red Blood Cells % 1 H Immature Granulocytes # 0.060 H Neutrophils # Neutrophils # (Manual) 2.4 Band Neutrophils # 3.0 H Lymphocytes (Manual) 1.1 Lymphocytes # Reactive Lymphocytes # 0.2 H Monocytes # Monocytes # (Manual) 0.4 Eosinophils # Basophils # Basophils # (Manual) 0.0 Nucleated Red Blood Cells # Platelet Estimate NORMAL Giant Platelets 2 H Polychromasia 3+ Hypochromasia 1+ Poikilocytosis 1+ Anisocytosis 2+ Microcytosis 2+ Target Cells 1+ Sodium Level 139 Potassium Level 3.9 Chloride Level 108 Carbon Dioxide Level 25 Anion Gap 6 Blood Urea Nitrogen 9 Creatinine 0.49 Est Glomerular Filtrat Rate mL/min > 60 Glucose Level 105 Calcium Level 7.8 L Phosphorus Level 3.3 Magnesium Level 2.0 Medications Medication Current Medications IV Flush (NS 3 ml) 3 ml PER PROTOCOL IV ; Start 05/25/18 at 00:30 Ondansetron HCl (Zofran Inj) 4 mg Q6H PRN IV NAUSEA/VOMITING; Start 05/25/18 at 00:30 Acetaminophen (Tylenol Tab) 650 mg Q6H PRN PO .PAIN 1-3 OR TEMP; Start 05/25/18 at 00:30 Albuterol/ Ipratropium (Duoneb) 3 ml Q2H RESP THERAPY PRN HHN SHORTNESS OF BREATH; Start 05/25/18 at 00:30 Lisinopril (Zestril) 10 mg DAILY PO Last administered on 05/26/18at 10:05; Admin Dose 10 MG; Start 05/25/18 at 09:00 Pantoprazole (Protonix Tab) 40 mg AC BREAKFAST PO Last administered on 05/26/18at 06:43; Admin Dose 40 MG; Start 05/25/18 at 07:00 Loratadine (Claritin) 10 mg DAILY PO Last administered on 05/26/18at 10:04; Admin Dose 10 MG; Start 05/25/18 at 09:00 Guaifenesin/ Codeine Phosphate (Robitussin Ac Liquid Cup) 5 ml Q4H PRN PO cough; Start 05/25/18 at 13:30 Ciprofloxacin (Cipro) 500 mg BID@,18 PO Last administered on 05/26/18at 06:43; Admin Dose 500 MG; Start 05/25/18 at 18:00 Metronidazole (Flagyl) 500 mg Q8 PO Last administered on 05/26/18at 13:35; Admin Dose 500 MG; Start 05/25/18 at 15:30 Mesalamine (Delzicol Dr) 800 mg WITH MEALS PO Last administered on 05/26/18at 13:44; Admin Dose 800 MG; Start 05/26/18 at 13:00 Prednisone (Prednisone) 60 mg DAILY PO ; Start 05/27/18 at 09:00; Status RAJEEV PANDA NP May 26, 2018 15:43
[2018-05-26 19:28] VITALS: BP 112/73; PULSE 91; RESP 16
[2018-05-26] MEDS: CIPROFLOXACIN 400MG/D5W 200 ML IVPB SCH (21:29)
[2018-05-26] MEDS: metroNIDAZOLE 500 MG/NS (PMX) 100 ML IVPB SCH (22:50)
[2018-05-27 01:58] VITALS: BP 124/75; PULSE 76; RESP 18
[2018-05-27] MEDS: metroNIDAZOLE 500 MG/NS (PMX) 100 ML IVPB SCH ×3 (05:41→22:55)
[2018-05-27] MEDS: PANTOPRAZOLE (EC) 40 MG TAB PO SCH (06:42)
[2018-05-27 07:31] VITALS: BP 138/89; PULSE 71; RESP 18
[2018-05-27] MEDS: MESALAMINE (EC) 400 MG CAP PO SCH ×3 (08:00→18:38)
[2018-05-27] MEDS: LISINOPRIL 10 MG TAB PO SCH (08:00)
[2018-05-27] MEDS: LORATADINE 10 MG TAB PO SCH (08:01)
[2018-05-27] MEDS: CIPROFLOXACIN 400MG/D5W 200 ML IVPB SCH ×2 (08:03→21:45)
[2018-05-27] MEDS ORDERED: METHYLPREDNISOLONE 125 MG INJ IV ONE (09:00)
[2018-05-27] MEDS ORDERED: predniSONE 20 MG TAB PO SCH (09:00)
--- NOTE | 2018-05-27 09:01 | PN ---
Date/Time of Note Date/Time of Note DATE: 05/27/18 TIME: 09:01 Assessment/Plan VTE Prophylaxis Risk score (from [facility])>0 risk: 1 SCD applied (from [facility]): No SCD contraindicated: low risk/ambulating Pharmacological prophylaxis: NA/contraindicated Pharm contraindication: bleeding Lines/Catheters IV [facility]ter Type (from [facility]): Peripheral IV Urinary Cath still in place: No Assessment/Plan Assessment/Plan 1. Sepsis secondary to UC exacerbation- resolving - remains afebrile with nl WBC - culture results noted - antibiotics on board with improvement 2. Exacerbation of Ulcerative colitis - GI on board and appreciate recommendations. continue on steroids and may need repeat colonoscopy if bleeding persists. Patient admits still with bleeding per rectum - continue mesalamine 3. Anemia, acute on chronic GI blood loss and iron deficiency - Hgb stable and will give another dose of IV iron - will need to continue on iron supplements upon discharge 4. Hypertension - stable 5. GERD - Continue home meds 6. Disposition - persists with GI bleeding and will continue current care. monitor H/H Result Diagram: 05/27/18 0447 05/27/18 0447 Results 24hrs Laboratory Tests Test 05/27/18 04:47 05/27/18 06:14 White Blood Count 7.4 Red Blood Count 4.30 # Hemoglobin 10.4 #L Hematocrit 33.7 #L Mean Corpuscular Volume 78.4 L Mean Corpuscular Hemoglobin 24.2 L Mean Corpuscular Hemoglobin Concent 30.9 L Red Cell Distribution Width 17.1 H Platelet Count 514 H Mean Platelet Volume 7.9 Immature Granulocytes % 2.000 H Neutrophils % 65.9 Lymphocytes % 24.0 Monocytes % 7.4 Eosinophils % 0.4 Basophils % 0.3 Nucleated Red Blood Cells % 0.7 H Immature Granulocytes # 0.150 H Neutrophils # 4.9 Lymphocytes # 1.8 Monocytes # 0.6 Eosinophils # 0.0 Basophils # 0.0 Nucleated Red Blood Cells # 0.1 H Sodium Level 140 Potassium Level 4.1 Chloride Level 107 Carbon Dioxide Level 27 Anion Gap 6 Blood Urea Nitrogen 8 Creatinine 0.56 Est Glomerular Filtrat Rate mL/min > 60 Glucose Level 112 Calcium Level 8.2 L Phosphorus Level 3.9 Magnesium Level 2.0 Lab Scanned Report BLOOD TRANSFUSION Subjective 24 Hr Interval Summary Free Text/Dictation Patient states shes still having rectal bleeding but denies any abdominal pain or issues when eating. Exam/Review of Systems Exam Vitals Vital Signs Date Temp Pulse Resp B/P (MAP) Pulse Ox O2 O2 Flow FiO2 Time Delivery Rate 05/27/18 97.9 71 18 138/89 99 07:31 (105) 05/25/18 Room Air 12:57 Intake and Output 05/26/18 05/26/18 05/27/18 1414:59 22:59 06:59 IntakeIntake Total 1150 ml 1380 ml 700 ml BalanceBalance 1150 ml 1380 ml 700 ml Exam General: Patient is laying in bed and answers questions appropriately Neck: Supple, nontender, midline Respiratory: Clear to auscultation bilaterally.no wheezing Cardiovascular: regular rate and rhythm, no obvious murmurs Gastrointestinal: Mildly tender to lower abdomen to palpation, bowel sounds heard. Neurological: Moves all extremities spontaneously Skin: No new skin lesions Results Results 24hrs Laboratory Tests Test 05/27/18 04:47 05/27/18 06:14 White Blood Count 7.4 Red Blood Count 4.30 # Hemoglobin 10.4 #L Hematocrit 33.7 #L Mean Corpuscular Volume 78.4 L Mean Corpuscular Hemoglobin 24.2 L Mean Corpuscular Hemoglobin Concent 30.9 L Red Cell Distribution Width 17.1 H Platelet Count 514 H Mean Platelet Volume 7.9 Immature Granulocytes % 2.000 H Neutrophils % 65.9 Lymphocytes % 24.0 Monocytes % 7.4 Eosinophils % 0.4 Basophils % 0.3 Nucleated Red Blood Cells % 0.7 H Immature Granulocytes # 0.150 H Neutrophils # 4.9 Lymphocytes # 1.8 Monocytes # 0.6 Eosinophils # 0.0 Basophils # 0.0 Nucleated Red Blood Cells # 0.1 H Sodium Level 140 Potassium Level 4.1 Chloride Level 107 Carbon Dioxide Level 27 Anion Gap 6 Blood Urea Nitrogen 8 Creatinine 0.56 Est Glomerular Filtrat Rate mL/min > 60 Glucose Level 112 Calcium Level 8.2 L Phosphorus Level 3.9 Magnesium Level 2.0 Lab Scanned Report BLOOD TRANSFUSION Medications Medication Current Medications IV Flush (NS 3 ml) 3 ml PER PROTOCOL IV ; Start 05/25/18 at 00:30 Ondansetron HCl (Zofran Inj) 4 mg Q6H PRN IV NAUSEA/VOMITING; Start 05/25/18 at 00:30 Acetaminophen (Tylenol Tab) 650 mg Q6H PRN PO .PAIN 1-3 OR TEMP; Start 05/25/18 at 00:30 Albuterol/ Ipratropium (Duoneb) 3 ml Q2H RESP THERAPY PRN HHN SHORTNESS OF BREATH; Start 05/25/18 at 00:30 Lisinopril (Zestril) 10 mg DAILY PO Last administered on 05/27/18 08:00; Admin Dose 10 MG; Start 05/25/18 at 09:00 Pantoprazole (Protonix Tab) 40 mg AC BREAKFAST PO Last administered on 05/27/18 06:42; Admin Dose 40 MG; Start 05/25/18 at 07:00 Loratadine (Claritin) 10 mg DAILY PO Last administered on 05/27/18 08:01; Admin Dose 10 MG; Start 05/25/18 at 09:00 Guaifenesin/ Codeine Phosphate (Robitussin Ac Liquid Cup) 5 ml Q4H PRN PO cough; Start 05/25/18 at 13:30 Mesalamine (Delzicol Dr) 800 mg WITH MEALS PO Last administered on 05/27/18 08:00; Admin Dose 800 MG; Start 05/26/18 at 13:00 Methylprednisolone Sodium Succinate (Solu-Medrol) 60 mg DAILY ONCE IV Last administered on 05/27/18 08:00; Admin Dose 60 MG; Start 05/27/18 at 09:00; Stop 05/27/18 at 09:01 Ciprofloxacin/ Dextrose 200 ml @ 200 mls/hr Q12 IVPB Last administered on 05/27/18 08:03; Admin Dose 200 MLS/HR; Start 05/26/18 at 21:00 Metronidazole 100 ml @ 100 mls/hr Q8 IVPB Last administered on 05/27/18 05:41; Admin Dose 100 MLS/HR; Start 05/26/18 at 22:00 CHELLE MARSHALL MD May 27, 2018 09:01
[2018-05-27] MEDS ORDERED: SOD FERRIC GLUC COMPLX 125 MG in SOD CHLORIDE 0.9% 100 ML IVPB ONE (14:30)
[2018-05-27 15:17] VITALS: BP 115/75; PULSE 83; RESP 16
--- NOTE | 2018-05-27 16:55 | PN ---
Date/Time of Note Date/Time of Note DATE: 05/27/18 TIME: 16:47 Assessment/Plan VTE Prophylaxis Risk score (from Ns)>0 risk: 1 SCD applied (from [facility] [place] No SCD contraindicated: low risk/ambulating Pharmacological prophylaxis: NA/contraindicated Pharm contraindication: low risk/ambulating Lines/Catheters IV C[facility]ter Type (from [facility]): Peripheral IV Urinary Cath still in place: No Assessment/Plan Hospital Course Assessment: Ulcerative colitis flare Fevers and chills Diarrhea - CDIFF neg -Stool cx- Coliform Abdominal pain Anemia Plan: Continue IV antibiotics/Solu-Medrol 60 mg IV/Continue mesalamine. Stool studies for O/P- pending. Low fiber diet. Monitor H/H, Transfuse as needed for Hgb <7.5 Patient seen in collaboration with Dr. Reeves/Asif Subjective: Patient states she is slightly improving she still having diarrhea up to 5 times a day less blood is noted. She denies abdominal pain but does have the urge to go she denies nocturnal BMs. We will continue same regimen monitor closely PHYSICAL EXAMINATION: GENERAL: Well developed, well nourished, alert & oriented x 3, in no acute distress SKIN: No lesions EYES: Pupils equal reactive to light and accommodation, full extraocular movements, sclera clear, non-icteric, no discharge. EARS/NOSE AND THROAT: Ears normal, nose normal, oropharynx normal, oral membranes well hydrated without lesions. NECK: Supple, no masses, thyroid normal CHEST: Inspection within normal limits. CARDIOVASCULAR: Heart: Regular rate and rhythm, RESPIRATORY: Lungs clear to auscultation GASTROINTESTINAL AND LIVER: Abdomen: Soft, non tenderness, non-distended, no hernias, no masses, no organomegaly, no ascites, no guarding, no rebound tenderness, normoactive bowel sounds. Rectal: Deferred. Result Diagram: 05/27/1844605/27/18446 Results 24hrs Laboratory Tests Test 05/27/18 04:45 05/27/18 04:47 05/27/18 06:14 Iron Level 14 L Total Iron Binding Capacity 211 L Percent Iron Saturation 7 L White Blood Count 7.4 Red Blood Count 4.30 # Hemoglobin 10.4 #L Hematocrit 33.7 #L Mean Corpuscular Volume 78.4 L Mean Corpuscular Hemoglobin 24.2 L Mean Corpuscular 30.9 L Hemoglobin Concent Red Cell Distribution Width 17.1 H Platelet Count 514 H Mean Platelet Volume 7.9 Immature Granulocytes % 2.000 H Neutrophils % 65.9 Lymphocytes % 24.0 Monocytes % 7.4 Eosinophils % 0.4 Basophils % 0.3 Nucleated Red Blood Cells % 0.7 H Immature Granulocytes # 0.150 H Neutrophils # 4.9 Lymphocytes # 1.8 Monocytes # 0.6 Eosinophils # 0.0 Basophils # 0.0 Nucleated Red Blood Cells # 0.1 H Sodium Level 140 Potassium Level 4.1 Chloride Level 107 Carbon Dioxide Level 27 Anion Gap 6 Blood Urea Nitrogen 8 Creatinine 0.56 Est Glomerular Filtrat > 60 Rate mL/min Glucose Level 112 Calcium Level 8.2 L Phosphorus Level 3.9 Magnesium Level 2.0 Lab Scanned Report BLOOD TRANSFUSION Exam/Review of Systems Exam Vitals Vital Signs Date Temp Pulse Resp B/P (MAP) Pulse Ox O2 O2 Flow FiO2 Time Delivery Rate 05/27/18 98.5 83 16 115/75 98 15:17 (88) 05/25/18 Room Air 12:57 Intake and Output 05/26/18 05/26/18 05/27/18 1414:59 22:59 06:59 IntakeIntake Total 1150 ml 1380 ml 700 ml BalanceBalance 1150 ml 1380 ml 700 ml Results Results 24hrs Laboratory Tests Test 05/27/18 04:45 05/27/18 04:47 05/27/18 06:14 Iron Level 14 L Total Iron Binding Capacity 211 L Percent Iron Saturation 7 L White Blood Count 7.4 Red Blood Count 4.30 # Hemoglobin 10.4 #L Hematocrit 33.7 #L Mean Corpuscular Volume 78.4 L Mean Corpuscular Hemoglobin 24.2 L Mean Corpuscular 30.9 L Hemoglobin Concent Red Cell Distribution Width 17.1 H Platelet Count 514 H Mean Platelet Volume 7.9 Immature Granulocytes % 2.000 H Neutrophils % 65.9 Lymphocytes % 24.0 Monocytes % 7.4 Eosinophils % 0.4 Basophils % 0.3 Nucleated Red Blood Cells % 0.7 H Immature Granulocytes # 0.150 H Neutrophils # 4.9 Lymphocytes # 1.8 Monocytes # 0.6 Eosinophils # 0.0 Basophils # 0.0 Nucleated Red Blood Cells # 0.1 H Sodium Level 140 Potassium Level 4.1 Chloride Level 107 Carbon Dioxide Level 27 Anion Gap 6 Blood Urea Nitrogen 8 Creatinine 0.56 Est Glomerular Filtrat > 60 Rate mL/min Glucose Level 112 Calcium Level 8.2 L Phosphorus Level 3.9 Magnesium Level 2.0 Lab Scanned Report BLOOD TRANSFUSION Medications Medication Current Medications IV Flush (NS 3 ml) 3 ml PER PROTOCOL IV ; Start 05/25/18 at 00:30 Ondansetron HCl (Zofran Inj) 4 mg Q6H PRN IV NAUSEA/VOMITING; Start 05/25/18 at 00:30 Acetaminophen (Tylenol Tab) 650 mg Q6H PRN PO .PAIN 1-3 OR TEMP; Start 05/25/18 at 00:30 Albuterol/ Ipratropium (Duoneb) 3 ml Q2H RESP THERAPY PRN HHN SHORTNESS OF BREATH; Start 05/25/18 at 00:30 Lisinopril (Zestril) 10 mg DAILY PO Last administered on 05/27/18at 08:00; Admin Dose 10 MG; Start 05/25/18 at 09:00 Pantoprazole (Protonix Tab) 40 mg AC BREAKFAST PO Last administered on 05/27/18at 06:42; Admin Dose 40 MG; Start 05/25/18 at 07:00 Loratadine (Claritin) 10 mg DAILY PO Last administered on 05/27/18 08:01; Admin Dose 10 MG; Start 05/25/18 at 09:00 Guaifenesin/ Codeine Phosphate (Robitussin Ac Liquid Cup) 5 ml Q4H PRN PO cough; Start 05/25/18 at 13:30 Mesalamine (Delzicol Dr) 800 mg WITH MEALS PO Last administered on 05/27/18 13:09; Admin Dose 800 MG; Start 05/26/18 at 13:00 Ciprofloxacin/ Dextrose 200 ml @ 200 mls/hr Q12 IVPB Last administered on 05/27/18 08:03; Admin Dose 200 MLS/HR; Start 05/26/18 at 21:00 Metronidazole 100 ml @ 100 mls/hr Q8 IVPB Last administered on 05/27/18 13:09; Admin Dose 100 MLS/HR; Start 05/26/18 at 22:00 Methylprednisolone Sodium Succinate (Solu-Medrol) 60 mg DAILY IV ; Start 05/28/18 at 09:00 KERON WILKINSON May 27, 2018 16:54
[2018-05-27 19:19] VITALS: BP 104/63; PULSE 82; RESP 18
[2018-05-28 02:00] VITALS: BP 111/66; PULSE 72; RESP 16
[2018-05-28] MEDS: metroNIDAZOLE 500 MG/NS (PMX) 100 ML IVPB SCH ×3 (05:21→22:16)
[2018-05-28] MEDS: PANTOPRAZOLE (EC) 40 MG TAB PO SCH (06:36)
[2018-05-28 08:15] VITALS: BP 161/88; PULSE 72; RESP 14
--- NOTE | 2018-05-28 08:36 | PN ---
Date/Time of Note Date/Time of Note DATE: 05/28/18 TIME: 08:36 Assessment/Plan VTE Prophylaxis Risk score (from Ns)>0 risk: 1 SCD applied (from Ns): No SCD contraindicated: low risk/ambulating Pharmacological prophylaxis: NA/contraindicated Pharm contraindication: bleeding Lines/Catheters IV [facility]ter Type (from [facility]): Peripheral IV Urinary Cath still in place: No Assessment/Plan Assessment/Plan 1. Sepsis secondary to UC exacerbation- resolving - remains afebrile with nl WBC - culture results noted - antibiotics on board with improvement 2. Exacerbation of Ulcerative colitis - GI on board and appreciate recommendations. Will continue on IV steroids until BM decrease to 3 per day and then will transition to PO. May need to transition to Entivyo since still experiencing exacerbations with Mesalamine. - continue mesalamine for now 3. Anemia, acute on chronic GI blood loss and iron deficiency - Hgb stable - will need to continue on iron supplements upon discharge 4. Hypertension - stable 5. GERD - Continue home meds 6. Disposition - persists with GI bleeding and will continue current care. Once BM decrease to 3 times a day, will transition from IV to PO steroids Result Diagram: 05/27/18 0447 05/27/187 Subjective 24 Hr Interval Summary Free Text/Dictation Patient states she has more formed stools but still with blood in stool. No a cute overnight events. Exam/Review of Systems Exam Vitals Vital Signs Date Temp Pulse Resp B/P (MAP) Pulse Ox O2 O2 Flow FiO2 Time Delivery Rate 05/28/18 97.8 72 14 161/88 98 08:15 (112) 05/25/18 Room Air 12:57 Intake and Output 05/27/18 05/27/18 05/28/18 1515:00 23:00 07:00 IntakeIntake Total 1620 ml 780 ml 200 ml BalanceBalance 1620 ml 780 ml 200 ml Exam General: Patient is laying in bed and answers questions appropriately Neck: Supple, nontender, midline Respiratory: Clear to auscultation bilaterally.no wheezing Cardiovascular: regular rate and rhythm, no obvious murmurs Gastrointestinal: soft, nontender to lower abdomen to palpation, bowel sounds heard. Neurological: Moves all extremities spontaneously Skin: No new skin lesions Medications Medication Current Medications IV Flush (NS 3 ml) 3 ml PER PROTOCOL IV ; Start 05/25/18 at 00:30 Ondansetron HCl (Zofran Inj) 4 mg Q6H PRN IV NAUSEA/VOMITING; Start 05/25/18 at 00:30 Acetaminophen (Tylenol Tab) 650 mg Q6H PRN PO .PAIN 1-3 OR TEMP; Start 05/25/18 at 00:30 Albuterol/ Ipratropium (Duoneb) 3 ml Q2H RESP THERAPY PRN HHN SHORTNESS OF BREATH; Start 05/25/18 at 00:30 Lisinopril (Zestril) 10 mg DAILY PO Last administered on 05/27/18 08:00; Admin Dose 10 MG; Start 05/25/18 at 09:00 Pantoprazole (Protonix Tab) 40 mg AC BREAKFAST PO Last administered on 05/28/18 06:36; Admin Dose 40 MG; Start 05/25/18 at 07:00 Loratadine (Claritin) 10 mg DAILY PO Last administered on 05/27/18 08:01; Admin Dose 10 MG; Start 05/25/18 at 09:00 Guaifenesin/ Codeine Phosphate (Robitussin Ac Liquid Cup) 5 ml Q4H PRN PO cough; Start 05/25/18 at 13:30 Mesalamine (Delzicol Dr) 800 mg WITH MEALS PO Last administered on 05/27/18 18:38; Admin Dose 800 MG; Start 05/26/18 at 13:00 Ciprofloxacin/ Dextrose 200 ml @ 200 mls/hr Q12 IVPB Last administered on 05/27/18at 21:45; Admin Dose 200 MLS/HR; Start 05/26/18 at 21:00 Metronidazole 100 ml @ 100 mls/hr Q8 IVPB Last administered on 05/28/18at 05:21; Admin Dose 100 MLS/HR; Start 05/26/18 at 22:00 Methylprednisolone Sodium Succinate (Solu-Medrol) 60 mg DAILY IV ; Start 05/28/18 at 09:00 CHELLE MARSHALL MD May 28, 2018 08:36
[2018-05-28] MEDS: MESALAMINE (EC) 400 MG CAP PO SCH ×3 (08:37→17:30)
[2018-05-28] MEDS: METHYLPREDNISOLONE 125 MG INJ IV SCH (08:38)
[2018-05-28] MEDS: CIPROFLOXACIN 400MG/D5W 200 ML IVPB SCH ×2 (08:39→20:48)
[2018-05-28] MEDS: LORATADINE 10 MG TAB PO SCH (08:39)
[2018-05-28] MEDS: LISINOPRIL 10 MG TAB PO SCH (08:40)
--- NOTE | 2018-05-28 12:37 | PN ---
Date/Time of Note Date/Time of Note DATE: 05/28/18 TIME: 12:30 Assessment/Plan VTE Prophylaxis Risk score (from Ns)>0 risk: 1 SCD applied (from Ns): No SCD contraindicated: low risk/ambulating Pharmacological prophylaxis: NA/contraindicated Pharm contraindication: bleeding Lines/Catheters IV C[facility]ter Type [facility]from [facility]): Peripheral IV Urinary Cath still in place: No Assessment/Plan Hospital Course Assessment: Ulcerative colitis flare Fevers and chills Diarrhea - CDIFF neg -Stool cx- Coliform Abdominal pain Anemia Plan: Continue IV antibiotics/Solu-Medrol 60 mg IV/Continue mesalamine. Stool studies for O/P- pending. Low fiber diet. Monitor H/H, Transfuse as needed for Hgb <7.5 Plan to change to po prednisone when BM's have reduced to about 3 per day Pt to f/u with GI after discharge- will possible plan to start Entivyo Patient seen in collaboration with Dr. Reeves/Asif Subjective: Patient notes overall improvement she states she had small bowel movements today noted to be more soft versus watery diarrhea 2 of those noted with small amounts of blood which also has improved Hemoglobin is noted to have increased patient currently denies nausea/vomiting or abdominal pain. Continue close observation ESR/CRP noted. PHYSICAL EXAMINATION: GENERAL: Well developed, well nourished, alert & oriented x 3, in no acute distress SKIN: No lesions EYES: Pupils equal reactive to light and accommodation, full extraocular movements, sclera clear, non-icteric, no discharge. EARS/NOSE AND THROAT: Ears normal, nose normal, oropharynx normal, oral membranes well hydrated without lesions. NECK: Supple, no masses, thyroid normal CHEST: Inspection within normal limits. CARDIOVASCULAR: Heart: Regular rate and rhythm, RESPIRATORY: Lungs clear to auscultation GASTROINTESTINAL AND LIVER: Abdomen: Soft, non tenderness, non-distended, no he rnias, no masses, no organomegaly, no ascites, no guarding, no rebound tenderness, normoactive bowel sounds. Rectal: Deferred. Result Diagram: 05/28/18 0910 05/28/18 0910 Results 24hrs Laboratory Tests Test 05/28/18 09:10 White Blood Count 10.3 # Red Blood Count 4.90 Hemoglobin 11.8 L Hematocrit 38.8 Mean Corpuscular Volume 79.2 L Mean Corpuscular Hemoglobin 24.1 L Mean Corpuscular Hemoglobin Concent 30.4 L Red Cell Distribution Width 17.4 H Platelet Count 696 #H Mean Platelet Volume 8.0 Immature Granulocytes % 3.700 H Neutrophils % 65.0 Lymphocytes % 27.3 Monocytes % 3.0 Eosinophils % 0.4 Basophils % 0.6 Nucleated Red Blood Cells % 0.3 H Immature Granulocytes # 0.380 H Neutrophils # 6.7 Lymphocytes # 2.8 Monocytes # 0.3 Eosinophils # 0.0 Basophils # 0.1 Nucleated Red Blood Cells # 0.0 Erythrocyte Sedimentation Rate 39 H Sodium Level 138 Potassium Level 4.1 Chloride Level 101 Carbon Dioxide Level 28 Anion Gap 9 Blood Urea Nitrogen 10 Creatinine 0.51 Glucose Level 126 Calcium Level 8.6 Phosphorus Level 3.8 Magnesium Level 1.9 C-Reactive Protein 5.9 H Albumin 2.8 L Exam/Review of Systems Exam Vitals Vital Signs Date Temp Pulse Resp B/P (MAP) Pulse Ox O2 O2 Flow FiO2 Time Delivery Rate 05/28/18 97.8 72 14 161/88 98 08:15 (112) 05/25/18 Room Air 12:57 Intake and Output 05/27/18 05/27/18 05/28/18 1515:00 23:00 07:00 IntakeIntake Total 1620 ml 780 ml 200 ml BalanceBalance 1620 ml 780 ml 200 ml Results Results 24hrs Laboratory Tests Test 05/28/18 09:10 White Blood Count 10.3 # Red Blood Count 4.90 Hemoglobin 11.8 L Hematocrit 38.8 Mean Corpuscular Volume 79.2 L Mean Corpuscular Hemoglobin 24.1 L Mean Corpuscular Hemoglobin Concent 30.4 L Red Cell Distribution Width 17.4 H Platelet Count 696 #H Mean Platelet Volume 8.0 Immature Granulocytes % 3.700 H Neutrophils % 65.0 Lymphocytes % 27.3 Monocytes % 3.0 Eosinophils % 0.4 Basophils % 0.6 Nucleated Red Blood Cells % 0.3 H Immature Granulocytes # 0.380 H Neutrophils # 6.7 Lymphocytes # 2.8 Monocytes # 0.3 Eosinophils # 0.0 Basophils # 0.1 Nucleated Red Blood Cells # 0.0 Erythrocyte Sedimentation Rate 39 H Sodium Level 138 Potassium Level 4.1 Chloride Level 101 Carbon Dioxide Level 28 Anion Gap 9 Blood Urea Nitrogen 10 Creatinine 0.51 Glucose Level 126 Calcium Level 8.6 Phosphorus Level 3.8 Magnesium Level 1.9 C-Reactive Protein 5.9 H Albumin 2.8 L Medications Medication Current Medications IV Flush (NS 3 ml) 3 ml PER PROTOCOL IV ; Start 05/25/18 at 00:30 Ondansetron HCl (Zofran Inj) 4 mg Q6H PRN IV NAUSEA/VOMITING; Start 05/25/18 at 00:30 Acetaminophen (Tylenol Tab) 650 mg Q6H PRN PO .PAIN 1-3 OR TEMP; Start 05/25/18 at 00:30 Albuterol/ Ipratropium (Duoneb) 3 ml Q2H RESP THERAPY PRN HHN SHORTNESS OF BREATH; Start 05/25/18 at 00:30 Lisinopril (Zestril) 10 mg DAILY PO Last administered on 05/28/18 08:40; Admin Dose 10 MG; Start 05/25/18 at 09:00 Pantoprazole (Protonix Tab) 40 mg AC BREAKFAST PO Last administered on 05/28/18 06:36; Admin Dose 40 MG; Start 05/25/18 at 07:00 Loratadine (Claritin) 10 mg DAILY PO Last administered on 05/28/18 08:39; Admin Dose 10 MG; Start 05/25/18 at 09:00 Guaifenesin/ Codeine Phosphate (Robitussin Ac Liquid Cup) 5 ml Q4H PRN PO cough; Start 05/25/18 at 13:30 Mesalamine (Delzicol Dr) 800 mg WITH MEALS PO Last administered on 05/28/18 08:37; Admin Dose 800 MG; Start 05/26/18 at 13:00 Ciprofloxacin/ Dextrose 200 ml @ 200 mls/hr Q12 IVPB Last administered on 05/28/18 08:39; Admin Dose 200 MLS/HR; Start 05/26/18 at 21:00 Metronidazole 100 ml @ 100 mls/hr Q8 IVPB Last administered on 05/28/18 05:21; Admin Dose 100 MLS/HR; Start 05/26/18 at 22:00 Methylprednisolone Sodium Succinate (Solu-Medrol) 60 mg DAILY IV Last administered on 05/28/18 08:38; Admin Dose 60 MG; Start 05/28/18 at 09:00 KERON WILKINSON May 28, 2018 12:37
[2018-05-28 14:28] VITALS: BP 132/86; PULSE 93; RESP 16
[2018-05-28 20:00] VITALS: BP 134/78; PULSE 90; RESP 18
[2018-05-29 02:00] VITALS: BP 129/77; PULSE 68; RESP 18
[2018-05-29] MEDS: metroNIDAZOLE 500 MG/NS (PMX) 100 ML IVPB SCH ×3 (05:57→22:11)
[2018-05-29] MEDS: PANTOPRAZOLE (EC) 40 MG TAB PO SCH (06:00)
[2018-05-29 07:52] VITALS: BP 141/86; PULSE 81; RESP 18
--- NOTE | 2018-05-29 08:36 | PN ---
Date/Time of Note Date/Time of Note DATE: 05/29/18 TIME: 08:36 Assessment/Plan VTE Prophylaxis Risk score (from [facility])>0 risk: 1 SCD applied (from [facility]): Yes Pharmacological prophylaxis: NA/contraindicated Pharm contraindication: bleeding Lines/Catheters IV Catheter Type (from [facility]): Saline Lock Urinary Cath still in place: No Assessment/Plan Assessment/Plan 1. Sepsis secondary to UC exacerbation- improving - remains afebrile. WBC elevated but most likely steroid induced. - culture results noted - antibiotics on board with improvement 2. Exacerbation of Ulcerative colitis - GI on board and appreciate recommendations. Will continue on IV steroids until BM decrease to 3 per day and then will transition to PO. May need to transition to Entivyo since still experiencing exacerbations with Mesalamine. - continue mesalamine for now 3. Anemia, acute on chronic GI blood loss and iron deficiency - Hgb stable - will need to continue on iron supplements upon discharge 4. Hypertension - stable 5. GERD - Continue home meds 6. Disposition - BMs improving with less blood in stool. Once BM decrease to 3 times a day, will transition from IV to PO steroids Result Diagram: 05/29/182 05/29/182 Results 24hrs Laboratory Tests Test 05/28/18 09:10 05/29/18 04:42 White Blood Count 10.3 # 15.6 #H Red Blood Count 4.90 4.41 Hemoglobin 11.8 L 10.7 L Hematocrit 38.8 35.4 L Mean Corpuscular Volume 79.2 L 80.3 L Mean Corpuscular Hemoglobin 24.1 L 24.3 L Mean Corpuscular Hemoglobin Concent 30.4 L 30.2 L Red Cell Distribution Width 17.4 H 17.7 H Platelet Count 696 #H 587 H Mean Platelet Volume 8.0 7.7 Immature Granulocytes % 3.700 H 1.700 H Neutrophils % 65.0 77.6 H Lymphocytes % 27.3 15.7 Monocytes % 3.0 4.5 Eosinophils % 0.4 0.2 Basophils % 0.6 0.3 Nucleated Red Blood Cells % 0.3 H 0.2 H Immature Granulocytes # 0.380 H 0.260 H Neutrophils # 6.7 12.1 H Lymphocytes # 2.8 2.4 Monocytes # 0.3 0.7 Eosinophils # 0.0 0.0 Basophils # 0.1 0.0 Nucleated Red Blood Cells # 0.0 0.0 Erythrocyte Sedimentation Rate 39 H 25 H Sodium Level 138 138 Potassium Level 4.1 3.9 Chloride Level 101 107 Carbon Dioxide Level 28 27 Anion Gap 9 4 L Blood Urea Nitrogen 10 16 Creatinine 0.51 0.69 Glucose Level 126 99 Calcium Level 8.6 8.3 L Phosphorus Level 3.8 3.8 Magnesium Level 1.9 2.1 C-Reactive Protein 5.9 H 4.7 H Albumin 2.8 L 2.6 L Subjective 24 Hr Interval Summary Free Text/Dictation Patient states her BMs are becoming less bloody. She admits to 3 BMs during the day and 3 last night for a total of 6. No acute overnight events. Exam/Review of Systems Exam Vitals Vital Signs Date Temp Pulse Resp B/P (MAP) Pulse Ox O2 O2 Flow FiO2 Time Delivery Rate 05/29/18 98.0 81 18 141/86 98 07:52 (104) 05/25/18 Room Air 12:57 Intake and Output 05/28/18 05/28/18 05/29/18 1515:00 23:00 07:00 IntakeIntake Total 1480 ml 1180 ml 100 ml BalanceBalance 1480 ml 1180 ml 100 ml Exam General: Patient is laying in bed and answers questions appropriately Neck: Supple, nontender, midline Respiratory: Clear to auscultation bilaterally.no wheezing Cardiovascular: regular rate and rhythm, no obvious murmurs Gastrointestinal: soft, nontender to lower abdomen to palpation, bowel sounds heard. Neurological: Moves all extremities spontaneously Skin: No new skin lesions Results Results 24hrs Laboratory Tests Test 05/28/18 09:10 05/29/18 04:42 White Blood Count 10.3 # 15.6 #H Red Blood Count 4.90 4.41 Hemoglobin 11.8 L 10.7 L Hematocrit 38.8 35.4 L Mean Corpuscular Volume 79.2 L 80.3 L Mean Corpuscular Hemoglobin 24.1 L 24.3 L Mean Corpuscular Hemoglobin Concent 30.4 L 30.2 L Red Cell Distribution Width 17.4 H 17.7 H Platelet Count 696 #H 587 H Mean Platelet Volume 8.0 7.7 Immature Granulocytes % 3.700 H 1.700 H Neutrophils % 65.0 77.6 H Lymphocytes % 27.3 15.7 Monocytes % 3.0 4.5 Eosinophils % 0.4 0.2 Basophils % 0.6 0.3 Nucleated Red Blood Cells % 0.3 H 0.2 H Immature Granulocytes # 0.380 H 0.260 H Neutrophils # 6.7 12.1 H Lymphocytes # 2.8 2.4 Monocytes # 0.3 0.7 Eosinophils # 0.0 0.0 Basophils # 0.1 0.0 Nucleated Red Blood Cells # 0.0 0.0 Erythrocyte Sedimentation Rate 39 H 25 H Sodium Level 138 138 Potassium Level 4.1 3.9 Chloride Level 101 107 Carbon Dioxide Level 28 27 Anion Gap 9 4 L Blood Urea Nitrogen 10 16 Creatinine 0.51 0.69 Glucose Level 126 99 Calcium Level 8.6 8.3 L Phosphorus Level 3.8 3.8 Magnesium Level 1.9 2.1 C-Reactive Protein 5.9 H 4.7 H Albumin 2.8 L 2.6 L Medications Medication Current Medications IV Flush (NS 3 ml) 3 ml PER PROTOCOL IV ; Start 05/25/18 at 00:30 Ondansetron HCl (Zofran Inj) 4 mg Q6H PRN IV NAUSEA/VOMITING; Start 05/25/18 at 00:30 Acetaminophen (Tylenol Tab) 650 mg Q6H PRN PO .PAIN 1-3 OR TEMP; Start 05/25/18 at 00:30 Albuterol/ Ipratropium (Duoneb) 3 ml Q2H RESP THERAPY PRN HHN SHORTNESS OF BREATH; Start 05/25/18 at 00:30 Lisinopril (Zestril) 10 mg DAILY PO Last administered on 05/28/18at 08:40; Admin Dose 10 MG; Start 05/25/18 at 09:00 Pantoprazole (Protonix Tab) 40 mg AC BREAKFAST PO Last administered on 05/29/18at 06:00; Admin Dose 40 MG; Start 05/25/18 at 07:00 Loratadine (Claritin) 10 mg DAILY PO Last administered on 05/28/18at 08:39; Admin Dose 10 MG; Start 05/25/18 at 09:00 Guaifenesin/ Codeine Phosphate (Robitussin Ac Liquid Cup) 5 ml Q4H PRN PO cough; Start 05/25/18 at 13:30 Mesalamine (Delzicol Dr) 800 mg WITH MEALS PO Last administered on 05/28/18at 17:30; Admin Dose 800 MG; Start 05/26/18 at 13:00 Ciprofloxacin/ Dextrose 200 ml @ 200 mls/hr Q12 IVPB Last administered on 05/28/18at 20:48; Admin Dose 200 MLS/HR; Start 05/26/18 at 21:00 Metronidazole 100 ml @ 100 mls/hr Q8 IVPB Last administered on 05/29/18at 05:57; Admin Dose 100 MLS/HR; Start 05/26/18 at 22:00 Methylprednisolone Sodium Succinate (Solu-Medrol) 60 mg DAILY IV Last administered on 05/28/18 08:38; Admin Dose 60 MG; Start 05/28/18 at 09:00 CHELLE MARSHALL MD May 29, 2018 08:36
[2018-05-29] MEDS: CIPROFLOXACIN 400MG/D5W 200 ML IVPB SCH ×2 (08:54→20:38)
[2018-05-29] MEDS: LORATADINE 10 MG TAB PO SCH (08:55)
[2018-05-29] MEDS: MESALAMINE (EC) 400 MG CAP PO SCH ×3 (08:55→18:23)
[2018-05-29] MEDS: LISINOPRIL 10 MG TAB PO SCH (08:56)
[2018-05-29] MEDS: METHYLPREDNISOLONE 125 MG INJ IV SCH (08:59)
[2018-05-29 13:29] VITALS: BP 123/80; PULSE 104; RESP 20
--- NOTE | 2018-05-29 16:05 | PN ---
Date/Time of Note Date/Time of Note DATE: 05/29/18 TIME: 15:59 Assessment/Plan VTE Prophylaxis Risk score (from Ns)>0 risk: 2 SCD applied (from Ns): Yes Pharmacological prophylaxis: other (scds) Lines/Catheters IV Catheter Type (from [facility]): Peripheral IV Urinary Cath still in place: No Assessment/Plan Hospital Course Assessment: Ulcerative colitis flare Fevers and chills- resolved Diarrhea- improved - CDIFF neg -Stool cx- Coliform -O&P negative Abdominal pain- resolved Anemia Plan: Will change solu-medrol to po prednisone in am Pt to f/u with GI after discharge- will possible plan to start Entivyo Patient seen in collaboration with Dr. Reeves/Asif Subjective: Pt feels better today, only 3-4 BMs today less bleeding noted, Decrease in Hgb noted. CPR/ESR also have decreased. Pt patient continues to improve anticipate clearance from GI in the next 1-2 days PHYSICAL EXAMINATION: GENERAL: Well developed, well nourished, alert & oriented x 3, in no acute distress SKIN: No lesions EYES: Pupils equal reactive to light and accommodation, full extraocular movements, sclera clear, non-icteric, no discharge. EARS/NOSE AND THROAT: Ears normal, nose normal, oropharynx normal, oral membranes well hydrated without lesions. NECK: Supple, no masses, thyroid normal CHEST: Inspection within normal limits. CARDIOVASCULAR: Heart: Regular rate and rhythm, RESPIRATORY: Lungs clear to auscultation GASTROINTESTINAL AND LIVER: Abdomen: Soft, non tenderness, non-distended, no hernias, no masses, no organomegaly, no ascites, no guarding, no rebound tenderness, normoactive bowel sounds. Rectal: Deferred. Result Diagram: 05/29/18 0442 05/29/182 Results 24hrs Laboratory Tests Test 05/29/18 04:42 White Blood Count 15.6 #H Red Blood Count 4.41 Hemoglobin 10.7 L Hematocrit 35.4 L Mean Corpuscular Volume 80.3 L Mean Corpuscular Hemoglobin 24.3 L Mean Corpuscular Hemoglobin Concent 30.2 L Red Cell Distribution Width 17.7 H Platelet Count 587 H Mean Platelet Volume 7.7 Immature Granulocytes % 1.700 H Neutrophils % 77.6 H Lymphocytes % 15.7 Monocytes % 4.5 Eosinophils % 0.2 Basophils % 0.3 Nucleated Red Blood Cells % 0.2 H Immature Granulocytes # 0.260 H Neutrophils # 12.1 H Lymphocytes # 2.4 Monocytes # 0.7 Eosinophils # 0.0 Basophils # 0.0 Nucleated Red Blood Cells # 0.0 Erythrocyte Sedimentation Rate 25 H Sodium Level 138 Potassium Level 3.9 Chloride Level 107 Carbon Dioxide Level 27 Anion Gap 4 L Blood Urea Nitrogen 16 Creatinine 0.69 Glucose Level 99 Calcium Level 8.3 L Phosphorus Level 3.8 Magnesium Level 2.1 C-Reactive Protein 4.7 H Albumin 2.6 L Exam/Review of Systems Exam Vitals Vital Signs Date Temp Pulse Resp B/P (MAP) Pulse Ox O2 O2 Flow FiO2 Time Delivery Rate 05/29/18 98.0 104 20 123/80 98 13:29 (94) 05/25/18 Room Air 12:57 Intake and Output 05/28/18 05/28/18 05/29/18 1515:00 23:00 07:00 IntakeIntake Total 1480 ml 1180 ml 100 ml BalanceBalance 1480 ml 1180 ml 100 ml Results Results 24hrs Laboratory Tests Test 05/29/18 04:42 White Blood Count 15.6 #H Red Blood Count 4.41 Hemoglobin 10.7 L Hematocrit 35.4 L Mean Corpuscular Volume 80.3 L Mean Corpuscular Hemoglobin 24.3 L Mean Corpuscular Hemoglobin Concent 30.2 L Red Cell Distribution Width 17.7 H Platelet Count 587 H Mean Platelet Volume 7.7 Immature Granulocytes % 1.700 H Neutrophils % 77.6 H Lymphocytes % 15.7 Monocytes % 4.5 Eosinophils % 0.2 Basophils % 0.3 Nucleated Red Blood Cells % 0.2 H Immature Granulocytes # 0.260 H Neutrophils # 12.1 H Lymphocytes # 2.4 Monocytes # 0.7 Eosinophils # 0.0 Basophils # 0.0 Nucleated Red Blood Cells # 0.0 Erythrocyte Sedimentation Rate 25 H Sodium Level 138 Potassium Level 3.9 Chloride Level 107 Carbon Dioxide Level 27 Anion Gap 4 L Blood Urea Nitrogen 16 Creatinine 0.69 Glucose Level 99 Calcium Level 8.3 L Phosphorus Level 3.8 Magnesium Level 2.1 C-Reactive Protein 4.7 H Albumin 2.6 L Medications Medication Current Medications IV Flush (NS 3 ml) 3 ml PER PROTOCOL IV ; Start 05/25/18 at 00:30 Ondansetron HCl (Zofran Inj) 4 mg Q6H PRN IV NAUSEA/VOMITING; Start 05/25/18 at 00:30 Acetaminophen (Tylenol Tab) 650 mg Q6H PRN PO .PAIN 1-3 OR TEMP; Start 05/25/18 at 00:30 Albuterol/ Ipratropium (Duoneb) 3 ml Q2H RESP THERAPY PRN HHN SHORTNESS OF BREATH; Start 05/25/18 at 00:30 Lisinopril (Zestril) 10 mg DAILY PO Last administered on 05/29/18 08:56; Admin Dose 10 MG; Start 05/25/18 at 09:00 Pantoprazole (Protonix Tab) 40 mg AC BREAKFAST PO Last administered on 05/29/18 06:00; Admin Dose 40 MG; Start 05/25/18 at 07:00 Loratadine (Claritin) 10 mg DAILY PO Last administered on 05/29/18 08:55; Admin Dose 10 MG; Start 05/25/18 at 09:00 Guaifenesin/ Codeine Phosphate (Robitussin Ac Liquid Cup) 5 ml Q4H PRN PO cough; Start 05/25/18 at 13:30 Mesalamine (Delzicol Dr) 800 mg WITH MEALS PO Last administered on 05/29/18 12:43; Admin Dose 800 MG; Start 05/26/18 at 13:00 Ciprofloxacin/ Dextrose 200 ml @ 200 mls/hr Q12 IVPB Last administered on 05/29/18 08:54; Admin Dose 200 MLS/HR; Start 05/26/18 at 21:00 Metronidazole 100 ml @ 100 mls/hr Q8 IVPB Last administered on 05/29/18 14:54; Admin Dose 100 MLS/HR; Start 05/26/18 at 22:00 Methylprednisolone Sodium Succinate (Solu-Medrol) 60 mg DAILY IV Last administered on 05/29/18 08:59; Admin Dose 60 MG; Start 05/28/18 at 09:00 KERON WILKINSON May 29, 2018 16:05
[2018-05-29 20:00] VITALS: BP 122/78; PULSE 89; RESP 19
[2018-05-30 02:57] VITALS: BP 129/79; RESP 18
[2018-05-30] MEDS: metroNIDAZOLE 500 MG/NS (PMX) 100 ML IVPB SCH ×3 (06:15→23:13)
[2018-05-30] MEDS: PANTOPRAZOLE (EC) 40 MG TAB PO SCH (06:17)
[2018-05-30 07:50] VITALS: BP 135/92; PULSE 74; RESP 18
[2018-05-30] MEDS: CIPROFLOXACIN 400MG/D5W 200 ML IVPB SCH ×2 (08:59→21:58)
[2018-05-30] MEDS: predniSONE 10 MG TAB PO SCH ×2 (08:59→21:58)
[2018-05-30] MEDS: LORATADINE 10 MG TAB PO SCH (08:59)
[2018-05-30] MEDS: LISINOPRIL 10 MG TAB PO SCH (09:00)
--- NOTE | 2018-05-30 09:01 | PN ---
Date/Time of Note Date/Time of Note DATE: 05/30/18 TIME: 09:01 Assessment/Plan VTE Prophylaxis Risk score (from Ns)>0 risk: 1 SCD applied (from Ns): Yes Pharmacological prophylaxis: NA/contraindicated Pharm contraindication: bleeding Lines/Catheters IV Catheter Type (from [facility]): Saline Lock Urinary Cath still in place: No Assessment/Plan Assessment/Plan 1. Sepsis secondary to UC exacerbation- improving - remains afebrile. WBC remains elevated but most likely steroid induced. - culture results noted - antibiotics on board with improvement 2. Exacerbation of Ulcerative colitis- improving - GI on board and appreciate recommendations. Changed to PO Steroids this am. May need to transition to Entivyo since still experiencing exacerbations with Mesalamine. Plans to follow up with her GI specialist in 1 week - continue mesalamine for now 3. Anemia, acute on chronic GI blood loss and iron deficiency - Hgb stable - will need to continue on iron supplements upon discharge 4. Hypertension - stable 5. GERD - Continue home meds 6. Disposition - If continues to improve and cleared by GI, will plan for discharge tomorrow Result Diagram: 05/30/18 0442 05/30/18 0442 Results 24hrs Laboratory Tests Test 05/30/18 04:42 White Blood Count 15.2 H Red Blood Count 4.75 Hemoglobin 11.3 L Hematocrit 37.8 Mean Corpuscular Volume 79.6 L Mean Corpuscular Hemoglobin 23.8 L Mean Corpuscular Hemoglobin Concent 29.9 L Red Cell Distribution Width 18.3 H Platelet Count 544 H Mean Platelet Volume 7.7 Immature Granulocytes % 1.400 H Neutrophils % 76.5 Lymphocytes % 16.5 Monocytes % 5.3 Eosinophils % 0.2 Basophils % 0.1 Nucleated Red Blood Cells % 0.0 Immature Granulocytes # 0.210 H Neutrophils # 11.7 H Lymphocytes # 2.5 Monocytes # 0.8 Eosinophils # 0.0 Basophils # 0.0 Nucleated Red Blood Cells # 0.0 Sodium Level 139 Potassium Level 4.7 Chloride Level 103 Carbon Dioxide Level 30 Anion Gap 6 Blood Urea Nitrogen 15 Creatinine 0.60 Glucose Level 94 Calcium Level 8.8 Phosphorus Level 4.4 Magnesium Level 2.2 Albumin 2.6 L Subjective 24 Hr Interval Summary Free Text/Dictation Patient states she only had 2 BMs so far today, one with no blood and the other with minimal blood. No acute overnight events. Exam/Review of Systems Exam Vitals Vital Signs Date Temp Pulse Resp B/P (MAP) Pulse Ox O2 O2 Flow FiO2 Time Delivery Rate 05/30/18 97.8 74 18 135/92 98 07:50 (106) Intake and Output 05/29/18 05/29/18 05/30/18 1515:00 23:00 07:00 IntakeIntake Total 1760 ml 1380 ml 340 ml BalanceBalance 1760 ml 1380 ml 340 ml Exam General: Patient is laying in bed and answers questions appropriately Neck: Supple, nontender, midline Respiratory: Clear to auscultation bilaterally.no wheezing Cardiovascular: regular rate and rhythm, no obvious murmurs Gastrointestinal: soft, nontender to lower abdomen to palpation, bowel sounds heard. Neurological: Moves all extremities spontaneously Skin: No new skin lesions Results Results 24hrs Laboratory Tests Test 05/30/18 04:42 White Blood Count 15.2 H Red Blood Count 4.75 Hemoglobin 11.3 L Hematocrit 37.8 Mean Corpuscular Volume 79.6 L Mean Corpuscular Hemoglobin 23.8 L Mean Corpuscular Hemoglobin Concent 29.9 L Red Cell Distribution Width 18.3 H Platelet Count 544 H Mean Platelet Volume 7.7 Immature Granulocytes % 1.400 H Neutrophils % 76.5 Lymphocytes % 16.5 Monocytes % 5.3 Eosinophils % 0.2 Basophils % 0.1 Nucleated Red Blood Cells % 0.0 Immature Granulocytes # 0.210 H Neutrophils # 11.7 H Lymphocytes # 2.5 Monocytes # 0.8 Eosinophils # 0.0 Basophils # 0.0 Nucleated Red Blood Cells # 0.0 Sodium Level 139 Potassium Level 4.7 Chloride Level 103 Carbon Dioxide Level 30 Anion Gap 6 Blood Urea Nitrogen 15 Creatinine 0.60 Glucose Level 94 Calcium Level 8.8 Phosphorus Level 4.4 Magnesium Level 2.2 Albumin 2.6 L Medications Medication Current Medications IV Flush (NS 3 ml) 3 ml PER PROTOCOL IV ; Start 05/25/18 at 00:30 Ondansetron HCl (Zofran Inj) 4 mg Q6H PRN IV NAUSEA/VOMITING; Start 05/25/18 at 00:30 Acetaminophen (Tylenol Tab) 650 mg Q6H PRN PO .PAIN 1-3 OR TEMP; Start 05/25/18 at 00:30 Albuterol/ Ipratropium (Duoneb) 3 ml Q2H RESP THERAPY PRN HHN SHORTNESS OF BREATH; Start 05/25/18 at 00:30 Lisinopril (Zestril) 10 mg DAILY PO Last administered on 05/29/18 08:56; Admin Dose 10 MG; Start 05/25/18 at 09:00 Pantoprazole (Protonix Tab) 40 mg AC BREAKFAST PO Last administered on 05/30/18 06:17; Admin Dose 40 MG; Start 05/25/18 at 07:00 Loratadine (Claritin) 10 mg DAILY PO Last administered on 05/29/18 08:55; Admin Dose 10 MG; Start 05/25/18 at 09:00 Guaifenesin/ Codeine Phosphate (Robitussin Ac Liquid Cup) 5 ml Q4H PRN PO cough; Start 05/25/18 at 13:30 Mesalamine (Delzicol Dr) 800 mg WITH MEALS PO Last administered on 05/29/18 18:23; Admin Dose 800 MG; Start 05/26/18 at 13:00 Ciprofloxacin/ Dextrose 200 ml @ 200 mls/hr Q12 IVPB Last administered on 05/29/18 20:38; Admin Dose 200 MLS/HR; Start 05/26/18 at 21:00 Metronidazole 100 ml @ 100 mls/hr Q8 IVPB Last administered on 05/30/18 06:15; Admin Dose 100 MLS/HR; Start 05/26/18 at 22:00 Prednisone (Prednisone) 30 mg BID PO ; Start 05/30/18 at 09:00 CHELLE MARSHALL MD May 30, 2018 09:01
[2018-05-30] MEDS: MESALAMINE (EC) 400 MG CAP PO SCH ×3 (09:03→18:03)
--- NOTE | 2018-05-30 14:54 | PN ---
Date/Time of Note Date/Time of Note DATE: 05/30/18 TIME: 14:50 Assessment/Plan VTE Prophylaxis Risk score ([place] [facility] [place] risk: 2 SCD applied (from Ns): Yes Pharmacological prophylaxis: other (scds) Lines/Catheters IV Catheter Type (from [facility]): Saline Lock Urinary Cath still in place: No Assessment/Plan Hospital Course Assessment: Ulcerative colitis flare Fevers and chills- resolved Diarrhea- improved - CDIFF neg -Stool cx- Coliform -O&P negative Abdominal pain- resolved Anemia Plan: Prednisone 30mg po BID- plan to decrease by 5mg every 5 days. Continue mesalamine Pt to f/u with GI after discharge- will possible plan to start Entivyo Pt appers stable from GI point of view for out-pt discharge Patient seen in collaboration with Dr. Reeves/Asif Subjective: Pt continues to improve daily- she has had x2 BM, x1 with small amount of blood noted. If remains stable, d/c in am. PHYSICAL EXAMINATION: GENERAL: Well developed, well nourished, alert & oriented x 3, in no acute dis tress SKIN: No lesions EYES: Pupils equal reactive to light and accommodation, full extraocular move ments, sclera clear, non-icteric, no discharge. EARS/NOSE AND THROAT: Ears normal, nose normal, oropharynx normal, oral membranes well hydrated without lesions. NECK: Supple, no masses, thyroid normal CHEST: Inspection within normal limits. CARDIOVASCULAR: Heart: Regular rate and rhythm, RESPIRATORY: Lungs clear to auscultation GASTROINTESTINAL AND LIVER: Abdomen: Soft, non tenderness, non-distended, no hernias, no masses, no organomegaly, no ascites, no guarding, no rebound tenderness, normoactive bowel sounds. Rectal: Deferred. Result Diagram: 05/30/1844105/30/182 Results 24hrs Laboratory Tests Test 05/30/18 04:42 White Blood Count 15.2 H Red Blood Count 4.75 Hemoglobin 11.3 L Hematocrit 37.8 Mean Corpuscular Volume 79.6 L Mean Corpuscular Hemoglobin 23.8 L Mean Corpuscular Hemoglobin Concent 29.9 L Red Cell Distribution Width 18.3 H Platelet Count 544 H Mean Platelet Volume 7.7 Immature Granulocytes % 1.400 H Neutrophils % 76.5 Lymphocytes % 16.5 Monocytes % 5.3 Eosinophils % 0.2 Basophils % 0.1 Nucleated Red Blood Cells % 0.0 Immature Granulocytes # 0.210 H Neutrophils # 11.7 H Lymphocytes # 2.5 Monocytes # 0.8 Eosinophils # 0.0 Basophils # 0.0 Nucleated Red Blood Cells # 0.0 Sodium Level 139 Potassium Level 4.7 Chloride Level 103 Carbon Dioxide Level 30 Anion Gap 6 Blood Urea Nitrogen 15 Creatinine 0.60 Glucose Level 94 Calcium Level 8.8 Phosphorus Level 4.4 Magnesium Level 2.2 Albumin 2.6 L Exam/Review of Systems Exam Vitals Vital Signs Date Temp Pulse Resp B/P (MAP) Pulse Ox O2 O2 Flow FiO2 Time Delivery Rate 05/30/18 97.8 74 18 135/92 98 07:50 (106) Intake and Output 05/29/18 05/29/18 05/30/18 1515:00 23:00 07:00 IntakeIntake Total 1760 ml 1380 ml 340 ml BalanceBalance 1760 ml 1380 ml 340 ml Results Results 24hrs Laboratory Tests Test 05/30/18 04:42 White Blood Count 15.2 H Red Blood Count 4.75 Hemoglobin 11.3 L Hematocrit 37.8 Mean Corpuscular Volume 79.6 L Mean Corpuscular Hemoglobin 23.8 L Mean Corpuscular Hemoglobin Concent 29.9 L Red Cell Distribution Width 18.3 H Platelet Count 544 H Mean Platelet Volume 7.7 Immature Granulocytes % 1.400 H Neutrophils % 76.5 Lymphocytes % 16.5 Monocytes % 5.3 Eosinophils % 0.2 Basophils % 0.1 Nucleated Red Blood Cells % 0.0 Immature Granulocytes # 0.210 H Neutrophils # 11.7 H Lymphocytes # 2.5 Monocytes # 0.8 Eosinophils # 0.0 Basophils # 0.0 Nucleated Red Blood Cells # 0.0 Sodium Level 139 Potassium Level 4.7 Chloride Level 103 Carbon Dioxide Level 30 Anion Gap 6 Blood Urea Nitrogen 15 Creatinine 0.60 Glucose Level 94 Calcium Level 8.8 Phosphorus Level 4.4 Magnesium Level 2.2 Albumin 2.6 L Medications Medication Current Medications IV Flush (NS 3 ml) 3 ml PER PROTOCOL IV ; Start 05/25/18 at 00:30 Ondansetron HCl (Zofran Inj) 4 mg Q6H PRN IV NAUSEA/VOMITING; Start 05/25/18 at 00:30 Acetaminophen (Tylenol Tab) 650 mg Q6H PRN PO .PAIN 1-3 OR TEMP; Start 05/25/18 at 00:30 Albuterol/ Ipratropium (Duoneb) 3 ml Q2H RESP THERAPY PRN HHN SHORTNESS OF BREATH; Start 05/25/18 at 00:30 Lisinopril (Zestril) 10 mg DAILY PO Last administered on 05/30/18 09:00; Admin Dose 10 MG; Start 05/25/18 at 09:00 Pantoprazole (Protonix Tab) 40 mg AC BREAKFAST PO Last administered on 05/30/18 06:17; Admin Dose 40 MG; Start 05/25/18 at 07:00 Loratadine (Claritin) 10 mg DAILY PO Last administered on 05/30/18 08:59; Admin Dose 10 MG; Start 05/25/18 at 09:00 Guaifenesin/ Codeine Phosphate (Robitussin Ac Liquid Cup) 5 ml Q4H PRN PO cough; Start 05/25/18 at 13:30 Mesalamine (Delzicol Dr) 800 mg WITH MEALS PO Last administered on 05/30/18 13:25; Admin Dose 800 MG; Start 05/26/18 at 13:00 Ciprofloxacin/ Dextrose 200 ml @ 200 mls/hr Q12 IVPB Last administered on 05/30/18 08:59; Admin Dose 200 MLS/HR; Start 05/26/18 at 21:00 Metronidazole 100 ml @ 100 mls/hr Q8 IVPB Last administered on 05/30/18 13:25; Admin Dose 100 MLS/HR; Start 05/26/18 at 22:00 Prednisone (Prednisone) 30 mg BID PO Last administered on 05/30/18 08:59; Admin Dose 30 MG; Start 05/30/18 at 09:00 KERON WILKINSON May 30, 2018 14:54
[2018-05-30 15:15] VITALS: BP 121/64; PULSE 89; RESP 18
[2018-05-30 20:00] VITALS: BP_SYST 117; BP_SYST 126; BP_DIAS 70; BP_DIAS 74; PULSE 90; PULSE 92; RESP 18
[2018-05-31 02:00] VITALS: BP 113/66; PULSE 68; RESP 19
[2018-05-31] MEDS: PANTOPRAZOLE (EC) 40 MG TAB PO SCH (06:00)
[2018-05-31 07:36] VITALS: BP 124/79; PULSE 77; RESP 20
--- NOTE | 2018-05-31 08:24 | PN ---
Date/Time of Note Date/Time of Note DATE: 05/31/18 TIME: 08:24 Assessment/Plan VTE Prophylaxis Risk score (from Ns)>0 risk: 1 SCD applied (from Ns): Yes Pharmacological prophylaxis: NA/contraindicated Pharm contraindication: bleeding Lines/Catheters IV Catheter Type (from [facility]): Saline Lock Urinary Cath still in place: No Assessment/Plan Assessment/Plan 1. Sepsis secondary to UC exacerbation- resolving - remains afebrile. WBC decreasing appropriately. Elevation most likely steroid induced - culture results noted - antibiotics on board with improvement 2. Exacerbation of Ulcerative colitis- resolving - GI on board and appreciate recommendations. Will continue on PO steroids and slowly taper. Will follow up as outpatient to discuss transition to Entivyo since still experiencing exacerbations with Mesalamine. - continue mesalamine for now 3. Anemia, acute on chronic GI blood loss and iron deficiency - Hgb stable 4. Hypertension - stable 5. GERD - Continue home meds 6. Disposition - Medically stable for discharge home Result Diagram: 05/31/18 0507 05/31/18 0507 Results 24hrs Laboratory Tests Test 05/31/18 05:07 White Blood Count 11.4 #H Red Blood Count 4.90 Hemoglobin 11.8 L Hematocrit 39.1 Mean Corpuscular Volume 79.8 L Mean Corpuscular Hemoglobin 24.1 L Mean Corpuscular Hemoglobin Concent 30.2 L Red Cell Distribution Width 18.6 H Platelet Count 537 H Mean Platelet Volume 7.5 Immature Granulocytes % 1.200 H Neutrophils % 87.4 H Lymphocytes % 9.3 L Monocytes % 1.8 Eosinophils % 0.1 Basophils % 0.2 Nucleated Red Blood Cells % 0.0 Immature Granulocytes # 0.140 H Neutrophils # 9.9 H Lymphocytes # 1.1 Monocytes # 0.2 L Eosinophils # 0.0 Basophils # 0.0 Nucleated Red Blood Cells # 0.0 Sodium Level 139 Potassium Level 4.1 Chloride Level 106 Carbon Dioxide Level 26 Anion Gap 7 Blood Urea Nitrogen 13 Creatinine 0.49 Glucose Level 138 # Calcium Level 8.9 Phosphorus Level 3.9 Magnesium Level 2.3 Albumin 2.9 L Subjective 24 Hr Interval Summary Free Text/Dictation Patient states shes doing well and denies any abdominal pain. Has good appetite and BMs stable. Exam/Review of Systems Exam Vitals Vital Signs Date Temp Pulse Resp B/P (MAP) Pulse Ox O2 O2 Flow FiO2 Time Delivery Rate 05/31/18 98.0 77 20 124/79 98 07:36 (94) Intake and Output 05/30/18 05/30/18 05/31/18 1515:00 23:00 07:00 IntakeIntake Total 880 ml 960 ml 300 ml OutputOutput Total 400 ml BalanceBalance 480 ml 960 ml 300 ml Exam General: Patient is chair at bedside. no acute distress Neck: Supple, nontender, midline Respiratory: Clear to auscultation bilaterally.no wheezing Cardiovascular: regular rate and rhythm, no obvious murmurs Gastrointestinal: soft, nontender to lower abdomen to palpation, bowel sounds heard. Neurological: Moves all extremities spontaneously Skin: No new skin lesions Results Results 24hrs Laboratory Tests Test 05/31/18 05:07 White Blood Count 11.4 #H Red Blood Count 4.90 Hemoglobin 11.8 L Hematocrit 39.1 Mean Corpuscular Volume 79.8 L Mean Corpuscular Hemoglobin 24.1 L Mean Corpuscular Hemoglobin Concent 30.2 L Red Cell Distribution Width 18.6 H Platelet Count 537 H Mean Platelet Volume 7.5 Immature Granulocytes % 1.200 H Neutrophils % 87.4 H Lymphocytes % 9.3 L Monocytes % 1.8 Eosinophils % 0.1 Basophils % 0.2 Nucleated Red Blood Cells % 0.0 Immature Granulocytes # 0.140 H Neutrophils # 9.9 H Lymphocytes # 1.1 Monocytes # 0.2 L Eosinophils # 0.0 Basophils # 0.0 Nucleated Red Blood Cells # 0.0 Sodium Level 139 Potassium Level 4.1 Chloride Level 106 Carbon Dioxide Level 26 Anion Gap 7 Blood Urea Nitrogen 13 Creatinine 0.49 Glucose Level 138 # Calcium Level 8.9 Phosphorus Level 3.9 Magnesium Level 2.3 Albumin 2.9 L Medications Medication Current Medications IV Flush (NS 3 ml) 3 ml PER PROTOCOL IV ; Start 05/25/18 at 00:30 Ondansetron HCl (Zofran Inj) 4 mg Q6H PRN IV NAUSEA/VOMITING; Start 05/25/18 at 00:30 Acetaminophen (Tylenol Tab) 650 mg Q6H PRN PO .PAIN 1-3 OR TEMP; Start 05/25/18 at 00:30 Albuterol/ Ipratropium (Duoneb) 3 ml Q2H RESP THERAPY PRN HHN SHORTNESS OF BREATH; Start 05/25/18 at 00:30 Lisinopril (Zestril) 10 mg DAILY PO Last administered on 05/30/18 09:00; Admin Dose 10 MG; Start 05/25/18 at 09:00 Pantoprazole (Protonix Tab) 40 mg AC BREAKFAST PO Last administered on 06:00; Admin Dose 40 MG; Start 05/25/18 at 07:00 Loratadine (Claritin) 10 mg DAILY PO Last administered on 05/30/18 08:59; Admin Dose 10 MG; Start 05/25/18 at 09:00 Guaifenesin/ Codeine Phosphate (Robitussin Ac Liquid Cup) 5 ml Q4H PRN PO cough; Start 05/25/18 at 13:30 Mesalamine (Delzicol Dr) 800 mg WITH MEALS PO Last administered on 05/30/18 18:03; Admin Dose 800 MG; Start 05/26/18 at 13:00 Prednisone (Prednisone) 30 mg BID PO Last administered on 05/30/18 21:58; Admin Dose 30 MG; Start 05/30/18 at 09:00 CHELLE MARSHALL MD May 31, 2018 08:24
[2018-05-31] MEDS: LISINOPRIL 10 MG TAB PO SCH (08:48)
[2018-05-31] MEDS: predniSONE 10 MG TAB PO SCH (08:48)
[2018-05-31] MEDS: MESALAMINE (EC) 400 MG CAP PO SCH ×2 (08:48→11:59)
[2018-05-31] MEDS: LORATADINE 10 MG TAB PO SCH (11:59)
[2018-05-31] MEDS ORDERED: PRED10TA PO (12:19)
[2018-05-31] MEDS ORDERED: FER325 PO (12:20)
--- NOTE | 2018-05-31 12:23 | PDOCDIS ---
Discharge Instructions DIAGNOSIS Discharge Diagnosis 1. Sepsis secondary to UC exacerbation- resolved 2. Exacerbation of Ulcerative colitis-resolving 3. Anemia, acute on chronic GI blood loss and iron deficiency 4. Hypertension 5. GERD CONDITION [id number] Patient Condition: [id number] Stable HOME CARE INSTRUCTIONS: [id number] Diet Instructions: [id number] Low Fat /Cholesterol FOLLOW UP/APPOINTMENTS Follow-up Plan 1. Follow up with your primary care physician in 1-2 weeks 2. Call your GI specialist to make arrangements for a follow up appointment 3. Take iron supplements daily since you were found with iron deficiency anemia 4. Take Prednisone taper as follows: Take 60 mg daily (30 mg twice a day) and decrease by 5mg every 5 days. The slow taper will be controlled by GI specialist but you will be given enough for a 60 day steroid taper. You will be given Prednisone 10mg tablets, which you can cut in half when needed. 5. If experiencing any concerning symptoms, go to your closest emergency department 1. seguimiento con sunshine mdico de atencin primaria en 1-2 semanas 2. llame a sunshine especialista en IG para hacer arreglos para yisel tristian de seguimiento 3. [place] suplementos de rina diariamente desde que se encontr con la anemia por deficiencia de rina 4. Charlie prednisona cnica de la siguiente manera: charlie 60 mg al da (30 mg dos veces al denise) y disminuir por 5mg cada 5 salazar. El cono lento ser controlado por el especialista GI, paddy se le juanita suficiente para un 60 da de esteroides conicidad. Se le administrar tabletas de 10mg de prednisona, que puede cortar por la mitad cuando sea necesario. 5. Si experimenta algn sntoma relacionado, vaya a sunshine Departamento de emergencias CHELLE Payne MD May 31, 2018 12:23
--- NOTE | 2018-05-31 14:22 | DS ---
Date/Time of Note Date/Time of Note DATE: 05/31/18 TIME: 14:15 Discharge Summary Admission/Discharge Info Admit Date/Time May 24, 2018 at 23:48 Discharge Date/Time 05/31/18 Discharge Diagnosis 1. Sepsis secondary to UC exacerbation- resolved 2. Exacerbation of Ulcerative colitis-resolving 3. Anemia, acute on chronic GI blood loss and iron deficiency 4. Hypertension 5. GERD Patient Condition: Stable Consults GI- Dr. Gold Procedures PROCEDURE: CT PELVIS WITH CONTRAST CLINICAL INDICATION: 47 years of age, female. Rectal pain. Concern for per irectal abscess. TECHNIQUE: A CT scan of the pelvis was performed with intravenous contrast. 100 mL Omnipaque-300 was administered during the examination. Coronal and sagittal reformatted images were obtained from the axial source images. Images were reviewed on a high-resolution PACS workstation. DICOM images are available. CTDIvol: 8 mGy. DLP: 288 mGy-cm. One or more of the following dose reduction techniques were used: - Automated exposure control. - Adjustment of the mA and/or kV according to patient size. - Use of iterative reconstruction technique. COMPARISON: CT abdomen pelvis March 15, 2018 FINDINGS: Gastrointestinal tract: There is seton in a perianal fistula at the 6 o'clock position at the anal verge that is unchanged from the prior exam. There is acute proctocolitis of the descending colon, sigmoid colon and rectum characterized by circumferential wall thickening, mucosal hyperenhancement, submucosal edema, engorgement of the surrounding vessels and prominent pericolic and perirectal lymph nodes. Bowel inflammation was also present on the prior exam. Negative for evidence of a perirectal or perianal abscess. Upstream loops of bowel are decompressed. Appendix: Normal. Bladder: Normal. Pelvic organs: The uterus is absent. Bilateral ovaries are normal. Vasculature: Iliac arteries are patent.. Patency of the iliac veins cannot be evaluated due to phase of contrast injection. Lymph nodes: Prominent perirectal and pericolic lymph nodes are likely reactive. Prominent pelvic sidewall lymph nodes are likely reactive. Peritoneum: Negative for free pelvic fluid or free intraperitoneal air. Abdominal wall: Normal. Musculoskeletal: No suspicious bone lesions. IMPRESSION: 1. Acute proctocolitis of the distal colon and rectum is similar to the prior exam and may be due to inflammatory bowel disease or infection. Negative for perirectal abscess. 2. Status post placement of a seton in a posterior perianal fistula that is unchanged from the prior exam. 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 Patient presents the ER complaining of fever/chills, generalized body ache and cough. Patient was seen in our ER earlier for cough and generalized body ache. Patient was discharged with Tamiflu for suspected flu. Patient returned to ER again complaining of fever/chills. She also reported loose stools and chronic rectal bleeding. Patient was admitted here recently for UC flare. When presented to ER, patient was febrile with a temperature of 103.6, heart rate 129. WBC 7. Hemoglobin when patient came earlier was 8.5 and now 7.7. During last hospitalization patient was found to be iron deficient and was given IV iron and also blood transfusion for anemia with a hemoglobin in the 6 range Hospital Course Patient was admitted for treatment of ulcerative colitis flare and Gi was consulted for further recommendations. CT scan of abdomen was performed with findings of acute proctitis. Patient was started on IV steroids and continued on mesalamine. Her bowel movements were monitored for presence of blood. Patients BMs improved and bleeding was less present. She was transitioned to PO steroids with continued improvement in her frequency of BM and resolution of bleeding. Patient was able to tolerate PO intake without any issues. Her presenting symptoms improved significantly and on day of discharge. patients vitals and physical exam were stable. She was advised to follow up with her GI specialist since they planned to start on a new medication. She was also instructed to continue on a prednisone taper by decreasing dose 5mg every 5 days. Patient was discharged home in good condition. Home Meds Active Scripts Ferrous Sulfate* (Ferrous Sulfate*) 325 Mg Tabec, 325 MG PO DAILY for 30 Days, #30 TAB 6 Refills Prov:CHELLE MARSHALL MD 05/31/18 Prednisone* (Prednisone*) 10 Mg Tab, 30 MG PO BID for 60 Days, #195 TAB Take 30 mg twice a day and decrease by 5mg daily every 5 days Prov:CHELLE MARSHALL MD 05/31/18 Reported Medications Acetaminophen* (Acetaminophen*) 500 MG Extra Strength Tablet, 500 MG PO Q4H PRN for PAIN AND OR ELEVATED TEMP, TAB 05/24/18 Cetirizine Hcl* (Cetirizine Hcl*) 10 Mg Tab.chew, 10 MG PO DAILY, #30 TAB 05/24/18 Adalimumab (Humira) 40 Mg/0.8 Ml Pen.ij.kit, 40 MG SQ QOTHERWEEK PRN for EVERYOTHERWEEK 05/24/18 Lactobacillus Acidophilus* (Lactinex*) 1 Tab Chew, 1 TAB PO DAILY, TAB 05/24/18 Mesalamine* (Apriso*) 0.375 Gm Cap.sr.24h, 4 CAP PO DAILY, CAP 05/24/18 Lisinopril* (Lisinopril*) 10 Mg Tablet, 10 MG PO DAILY, #30 TAB 05/24/18 Pantoprazole* (Pantoprazole*) 40 Mg Tablet.dr, 40 MG PO AC BREAKFAST, TAB 05/24/18 Discontinued Reported Medications Amoxicillin* (Amoxicillin*) 500 Mg Cap, 500 MG PO TID, #20 CAP FOR 10 DAYS,START DATE 05/21/18 05/24/18 Promethazine Hcl* (Phenergan* Liq) 6.25 Mg/5 Ml Syrup, 6.25 MG PO Q6H PRN for COUGH, ML 05/24/18 Adalimumab (Humira) 40 Mg/0.8 Ml Pen.ij.kit, 40 MG SQ TWO WEEKS 10/11/17 Lisinopril* (Lisinopril*) 10 Mg Tablet, 10 MG PO DAILY, #30 TAB 09/05/17 Pantoprazole* (Pantoprazole*) 40 Mg Tablet.dr, 40 MG PO AC BREAKFAST, TAB 09/05/17 Discontinued Scripts Oseltamivir Phosphate* (Tamiflu*) 75 Mg Capsule, 75 MG PO BID for 5 Days, CAP Prov:KONSTANTIN LOMBARDO MD 05/24/18 Prednisone* (Prednisone*) 20 Mg Tab, 40 MG PO DAILY for 4 Days, #8 TAB Prov:ROSANNA MCCABE MD 03/20/18 Mesalamine* (Asacol HD) 800 Mg Tablet., 1800 MG PO TID, #60 TAB Prov:GORANBERNARDNONA Livingston DO 01/07/18 Follow-up Plan 1. Follow up with your primary care physician in 1-2 weeks 2. Call your GI specialist to make arrangements for a follow up appointment 3. Take iron supplements daily since you were found with iron deficiency anemia 4. Take Prednisone taper as follows: Take 60 mg daily (30 mg twice a day) and decrease by 5mg every 5 days. The slow taper will be controlled by GI specialist but you will be given enough for a 60 day steroid taper. You will be given Prednisone 10mg tablets, which you can cut in half when needed. 5. If experiencing any concerning symptoms, go to your closest emergency department 1. seguimiento con sunshine mdico de atencin primaria en 1-2 semanas 2. llame a sunshine especialista en IG para hacer arreglos para yisel tristian de seguimiento 3. [place] suplementos de rina diariamente desde que se encontr con la anemia por deficiencia de rina 4. Charlie prednisona cnica de la siguiente manera: charlie 60 mg al da (30 mg dos veces al denise) y disminuir por 5mg cada 5 salazar. El cono lento ser controlado por el especialista GI, paddy se le juanita suficiente para un 60 da de esteroides conicidad. Se le administrar tabletas de 10mg de prednisona, que puede cortar por la mitad cuando sea necesario. 5. Si experimenta algn sntoma relacionado, vaya a sunshine Departamento de emergencias ms hans Primary Care Provider Not On Staff Doctor Time spent on discharge: > 30 minutes Pending Labs Laboratory Tests Test 05/31/18 05:07 White Blood Count 11.4 10^3/ul (4.8-10.8) Red Blood Count 4.90 10^6/ul (4.20-5.40) Hemoglobin 11.8 g/dl (12.0-16.0) Hematocrit 39.1 % (37.0-47.0) Mean Corpuscular Volume 79.8 fl (82.0-101.0) Mean Corpuscular Hemoglobin 24.1 pg (29.0-33.0) Mean Corpuscular Hemoglobin Concent 30.2 g/dl (32.0-37.0) Red Cell Distribution Width 18.6 % (11.5-14.5) Platelet Count 537 10^3/UL (140-415) Mean Platelet Volume 7.5 fl (7.4-10.4) Immature Granulocytes % 1.200 % (0.001-0.429) Neutrophils % 87.4 % (39.0-77.0) Lymphocytes % 9.3 % (15.0-51.0) Monocytes % 1.8 % (0.0-11.0) Eosinophils % 0.1 % (0.0-7.0) Basophils % 0.2 % (0.0-2.0) Nucleated Red Blood Cells % 0.0 /100WBC (0.0-0.0) Immature Granulocytes # 0.140 10^3/ul (0.0-0.031) Neutrophils # 9.9 10^3/ul (1.6-7.5) Lymphocytes # 1.1 10^3/ul (0.8-2.9) Monocytes # 0.2 10^3/ul (0.3-0.9) Eosinophils # 0.0 10^3/ul (0.0-0.5) Basophils # 0.0 10^3/ul (0.0-0.1) Nucleated Red Blood Cells # 0.0 10^3/ul (0.0-0.0) Sodium Level 139 mmol/L (135-144) Potassium Level 4.1 mmol/L (3.5-5.1) Chloride Level 106 mmol/L (97-110) Carbon Dioxide Level 26 mmol/L (21-31) Anion Gap 7 (5-13) Blood Urea Nitrogen 13 mg/dl (7-20) Creatinine 0.49 mg/dl (0.44-1.00) Glucose Level 138 mg/dl (70-220) Calcium Level 8.9 mg/dl (8.4-10.2) Phosphorus Level 3.9 mg/dl (2.5-4.9) Magnesium Level 2.3 mg/dl (1.7-2.5) Albumin 2.9 g/dl (3.3-4.9) CHELLE MARSHALL MD May 31, 2018 14:22
== END 2018-05-31 14:30 | disposition home or self-care (01) | DRG 872 ==
LOC: E/R 20:13 → 2NE 23:48
PROVIDERS: ADMIT Internal Medicine; ATTEND Internal Medicine
PROC: 30233N1 Transfusion of Nonautologous Red Blood Cells into Peripheral Vein, Percutaneous Approach (ICD-10-PCS; principal; 2018-05-26)
DX: A41.9 Sepsis, unspecified organism (principal); K51.213 Ulcerative (chronic) proctitis with fistula; K51.313 Ulcerative (chronic) rectosigmoiditis with fistula; D50.0 Iron deficiency anemia secondary to blood loss (chronic); K21.9 Gastro-esophageal reflux disease without esophagitis; I10 Essential (primary) hypertension; J06.9 Acute upper respiratory infection, unspecified
CPT/HCPCS: 36415; 36430; 72193; 80048; 80053; 80069; 81001; 81025; 82270; 83540; 83605; 83735; 84100; 84484; 85025; 85651; 86140; 86850; 86900; 86901; 86920; 87045; 87075; 87086; 87177; 93005; 96365; 96375; J0744; J1885; J2543; J2916; J2930; J7030; J7512; P9016; Q9967